=== PATIENT | female | born 1965 | race African-American/Black ===

== ENCOUNTER 2018-02-14 21:11 | Observation (INO) | payer MEDICAID ==
[2018-02-14] MEDS ORDERED: ASPIRIN 81 MG TABLET, CHEWABLE PO ONE (21:19)
[2018-02-14 21:48] LABS: ABSOLUTE BASOPHILS # (AUTO) 0.1 10^3/uL (0.0-0.2); ABSOLUTE EOSINOPHILS # (AUTO) 0.1 10^3/uL (0.0-0.6); ABSOLUTE LYMPHOCYTES (AUTO) 2.1 10^3/uL (0.5-4.7); ABSOLUTE MONOCYTES (AUTO) 0.7 10^3/uL (0.1-1.4); ABSOLUTE NEUT (AUTO) 6.7 10^3/uL (1.7-8.2); BASOPHILS % (AUTO) 0.6 % (0-2); HEMATOCRIT 39.5 % (36.0-47.0); HEMOGLOBIN 13.1 g/dL (12.0-15.5); LYMPHOCYTES % (AUTO) 21.8 % (13-45); MEAN CORPUSCULAR HEMOGLOBIN 28.2 pg (27.0-33.4); MEAN CORPUSCULAR HGB CONC 33.1 g/dL (32.0-36.0); MEAN CORPUSCULAR VOLUME 85 fl (80-97); MONOCYTES % (AUTO) 7.4 % (3-13); PLATELET COUNT 301 10^3/uL (150-450); RED BLOOD COUNT 4.63 10^6/uL (3.72-5.28); RED CELL DISTRIBUTION WIDTH 15.2 % (11.5-14.0); SEGMENTED NEUTROPHILS % (AUTO) 69.2 % (42-78); TOTAL CELLS COUNTED % (AUTO) 100 %; WHITE BLOOD COUNT 9.6 10^3/uL (4.0-10.5)
[2018-02-14] MEDS ORDERED: NITROGLYCERIN 0.4 MG/TAB 25 TAB/BOTTLE SL ONE (21:51)
[2018-02-14] MEDS ORDERED: METOPROLOL TARTRATE PF/INJ 5 MG/5 ML SDV IV ONE ×2 (21:51→22:38)
[2018-02-14] MEDS ORDERED: ACETAMINOPHEN 325 MG TABLET PO ONE (21:51)
[2018-02-14] MEDS ORDERED: ONDANSETRON HCL INJ/PF 4 MG/2 ML SDV IV ONE (21:52)
[2018-02-14] MEDS ORDERED: MORPHINE SULFATE 10 MG/ML INJ IV ONE (21:52)
[2018-02-14 22:08] LABS: ALANINE AMINOTRANSFERASE 16 U/L (9-52); ALBUMIN 4.2 g/dL (3.5-5.0); ALKALINE PHOSPHATASE 101 U/L (38-126); ANION GAP 14 (5-19); ASPARTATE AMINO TRANSFERASE 25 U/L (14-36); BILIRUBIN,DIRECT 0.1 mg/dL (0.0-0.4); BILIRUBIN,TOTAL 0.4 mg/dL (0.2-1.3); BLOOD UREA NITROGEN 17 mg/dL (7-20); CALCIUM 9.5 mg/dL (8.4-10.2); CARBON DIOXIDE 26 mmol/L (22-30); CHLORIDE 103 mmol/L (98-107); CREATINE KINASE 87 U/L (30-135); GLUCOSE 181 mg/dL (75-110); POTASSIUM 4.5 mmol/L (3.6-5.0); TOTAL PROTEIN 7.8 g/dL (6.3-8.2)
--- NOTE | 2018-02-14 22:09 | RADIOLOGY REPORT (SQ) ---
EXAM DESCRIPTION: XR CHEST 1 VIEW COMPLETED DATE/TME: 02/14/2018 21:19 CLINICAL HISTORY: 53 years, Female, cp Findings: The heart is not enlarged. No consolidation or pleural effusion. No pulmonary edema or pneumothorax. IMPRESSION: No acute disease.
[2018-02-14 22:19] LABS: CREATINE KINASE MB 0.52 ng/mL (<4.55)
[2018-02-14 22:20] LABS: TROPONIN I < 0.012 ng/mL
--- NOTE | 2018-02-14 23:09 | ER Document Report ---
ED General - General Chief Complaint: Chest Pain Stated Complaint: CHEST PAIN Time Seen by Provider: 02/14/18 21:49 Mode of Arrival: Ambulatory Information source: Patient Notes: This is a 53-year-old female with a history of hypertension, diabetes, asthma presents to the emergency room with retrosternal chest pain radiating to the left arm while she was at [facility] today. She states she has had several episodes similar in nature. She is recently relocated from [place] and has been seen in the [facility]. Patient denies any exacerbating or relieving factors. TRAVEL OUTSIDE OF THE [place] IN LAST 30 DAYS: No - HPI Onset: Just prior to arrival Onset/Duration: Sudden Quality of pain: Dull Severity: Moderate Pain Level: 3 Associated symptoms: Chest pain. denies: Shortness of breath Exacerbated by: Denies Relieved by: Denies Similar symptoms previously: No Recently seen / treated by doctor: No - Related Data Allergies/Adverse Reactions: No Known Allergies Allergy (Unverified 02/14/18 21:31) Past Medical History - General Information source: Patient - Social History Smoking Status: Current Every Day Smoker Cigarette use (# per day): Yes - Half pack per day Chew tobacco use (# tins/day): No Frequency of alcohol use: None Drug Abuse: None Lives with: Family Family History: None Patient has suicidal ideation: No Patient has homicidal ideation: No - Past Medical History Cardiac Medical History: Reports: Hx Hypercholesterolemia, Hx Hypertension Endocrine Medical History: Reports: Hx Diabetes Mellitus Type 2 Renal/ Medical History: Denies: Hx Peritoneal Dialysis GI Medical History: Reports: Hx Gastroesophageal Reflux Disease Surgical Hx: Negative Review of Systems - Review of Systems Constitutional: denies: Chills, Fever EENT: No symptoms reported Cardiovascular: See HPI Respiratory: No symptoms reported Gastrointestinal: No symptoms reported Genitourinary: No symptoms reported Female Genitourinary: No symptoms reported Musculoskeletal: No symptoms reported Skin: No symptoms reported Hematologic/Lymphatic: No symptoms reported Neurological/Psychological: No symptoms reported Physical Exam - Vital signs Vitals: Pulse Ox 100 02/14/18 21:24 Notes: Physical exam: GENERAL: Patient is alert and oriented x3, no acute distress HEAD: Atraumatic, normocephalic. EYES: Pupils equal round and reactive to light, extraocular movements intact, sclera anicteric, conjunctiva are normal. ENT: TMs normal, nares patent, oropharynx clear without exudates. Moist mucous membranes. NECK: Normal range of motion, supple without obvious mass or JVD. LUNGS: Breath sounds clear to auscultation bilaterally and equal. No wheezes rales or rhonchi. HEART: Regular rate and rhythm without murmurs, rubs or gallops. ABDOMEN: Soft, normoactive bowel sounds. No tenderness to palpation. No guarding, no rebound. No masses appreciated. EXTREMITIES: Normal range of motion, no pitting or edema. No clubbing or cyanosis. NEUROLOGICAL: Cranial nerves II through XII grossly intact. Normal speech, moving all extremities. PSYCH: Normal mood, normal affect. SKIN: Warm, Dry, normal turgor, no rashes or lesions noted. Course - Vital Signs Vital signs: Temp Pulse Resp BP Pulse Ox 98.2 F 85 18 99/65 L 98 02/15/18 04:26 02/15/18 04:26 02/15/18 04:26 02/15/18 04:26 02/15/18 04:26 - Laboratory Result Diagrams: 02/14/18 21:37 02/14/18 21:37 Laboratory results interpreted by me: 02/14/18 02/14/18 02/14/18 21:37 21:37 21:37 RDW 15.2 H Glucose 181 H TSH 0.11 L - Diagnostic Test Radiology reviewed: Image reviewed, Reports reviewed - X-ray shows no infiltrates - EKG Interpretation by Me Rate: Normal Rhythm: NSR - EKG shows sinus tachycardia with left axis deviation, inverted T' s anteriorly. There is no old EKG to compare. Repeat EKG pain-free shows no significant change Discharge - Discharge Clinical Impression: Chest pain Condition: Stable Disposition: ADMITTED OBSERVATION Admitting Provider: Hospitalist - Dr Tejada Unit Admitted: Telemetry
[2018-02-14] MEDS ORDERED: MAG HYDROX/AL HYDROX/SIMETH SUSP 30 ML UDCUP PO ONE (23:19)
[2018-02-14] MEDS ORDERED: METOCLOPRAMIDE HCL ORAL SOLN 10 MG/10 ML UDCUP PO ONE (23:19)
[2018-02-14] MEDS ORDERED: LIDOCAINE 2% VISCOUS SOLN 20 ML UDCUP PO ONE (23:19)
[2018-02-14] MEDS ORDERED: DEXTROSE 40% GEL 15 GM TUBE PO PRN ×2 (23:25)
[2018-02-14] MEDS ORDERED: GLUCAGON,HUMAN RECOMB 1 MG INJ IM PRN (23:25)
[2018-02-14] MEDS ORDERED: DEXTROSE 50%-WATER 25 GM/50 ML DISP.SYRIN IV PRN ×2 (23:25)
[2018-02-14] MEDS ORDERED: NITROGLYCERIN 0.4 MG/TAB 25 TAB/BOTTLE SL PRN (23:25)
[2018-02-14] MEDS ORDERED: DIAZEPAM 5 MG TABLET PO PRN (23:25)
[2018-02-14 23:33] LABS: FREE T3 3.63 pg/mL (2.77-5.27); FREE T4 (FREE THYROXINE) 1.11 ng/dL (0.78-2.19)
[2018-02-14 23:47] LABS: THYROID STIMULATING HORMONE 0.11 uIU/mL (0.47-4.68)
[2018-02-15] MEDS ORDERED: FAMOTIDINE 20 MG TABLET PO ONE (01:40)
--- NOTE | 2018-02-15 03:43 | PDOC H&P ---
History of Present Illness Admission Date/PCP: 02/14/18 23:31 Patient complains of: Chest pain History of Present Illness: TYRON SIMON is a 53 year old female who is a poor historian but admits to gastritis, hiatal hernia, hypertension, dyslipidemia, diabetes and tobacco dependence. She presents with 6 hours of intermittent, pressure-like, left- sided chest pain associated with radiation to the left arm occurring while in [employer]. She admits to palpitations, frequent nausea with burping. She is unable to identify alleviating or exacerbating factors, denying recent cardiac stress test she is referred to the hospitalist for evaluation. She denies recent change in medications and is otherwise been well. Past Medical History Cardiac Medical History: Reports: Hyperlipidema, Hypertension Pulmonary Medical History: Reports: Asthma Endocrine Medical History: Reports: Diabetes Mellitus Type 2 GI Medical History: Reports: Gastroesophageal Reflux Disease, Hiatal Hernia Hematology: Reports: None Past Surgical History Past Surgical History: Reports: None Social History Information Source: Patient Lives with: Family Smoking Status: Former Smoker Frequency of Alcohol Use: None Drugs: None - Advance Directive Resuscitation Status: Full Code Family History Family History: DM, Hypertension. denies: CAD, COPD Parental Family History Reviewed: Yes Children Family History Reviewed: Yes Sibling(s) Family History Reviewed.: Yes Medication/Allergy Allergies/Adverse Reactions: No Known Allergies Allergy (Unverified 02/14/18 21:31) Review of Systems Constitutional: ABSENT: chills, fever(s), headache(s), weight gain, weight loss Eyes: ABSENT: visual disturbances Ears: ABSENT: hearing changes Cardiovascular: PRESENT: as per HPI, palpitations. ABSENT: chest pain, dyspnea on exertion, edema, orthropnea Respiratory: ABSENT: cough, hemoptysis Gastrointestinal: PRESENT: as per HPI, bloating, heartburn, nausea. ABSENT: constipation, diarrhea, vomiting Genitourinary: ABSENT: dysuria, hematuria Musculoskeletal: ABSENT: joint swelling Integumentary: ABSENT: rash, wounds Neurological: ABSENT: abnormal gait, abnormal speech, confusion, dizziness, focal weakness, syncope Psychiatric: ABSENT: anxiety, depression, homidical ideation, suicidal ideation Endocrine: ABSENT: cold intolerance, heat intolerance, polydipsia, polyuria Hematologic/Lymphatic: ABSENT: easy bleeding, easy bruising Physical Exam Vital Signs: Temp Pulse Resp BP Pulse Ox 98.5 F 90 18 111/75 99 02/15/18 02:42 02/15/18 02:42 02/15/18 02:42 02/15/18 02:42 02/15/18 02:42 Intake & Output 02/13/18 02/14/18 02/15/18 11:59 11:59 11:59 Weight 40 kg General appearance: PRESENT: no acute distress, well-developed, well-nourished Head exam: PRESENT: atraumatic, normocephalic Eye exam: PRESENT: conjunctiva pink, EOMI, PERRLA. ABSENT: scleral icterus Ear exam: PRESENT: normal external ear exam Mouth exam: PRESENT: moist, tongue midline Neck exam: ABSENT: carotid bruit, JVD, lymphadenopathy, thyromegaly Respiratory exam: PRESENT: clear to auscultation dewayne. ABSENT: rales, rhonchi, wheezes Cardiovascular exam: PRESENT: RRR. ABSENT: diastolic murmur, rubs, systolic murmur Pulses: PRESENT: normal dorsalis pedis pul Vascular exam: PRESENT: normal capillary refill GI/Abdominal exam: PRESENT: normal bowel sounds, soft. ABSENT: distended, guarding, mass, organolmegaly, rebound, tenderness Rectal exam: PRESENT: deferred Extremities exam: PRESENT: full ROM. ABSENT: calf tenderness, clubbing, pedal edema Neurological exam: PRESENT: alert, awake, oriented to person, oriented to place , oriented to time, oriented to situation, CN II-XII grossly intact. ABSENT: motor sensory deficit Psychiatric exam: PRESENT: appropriate affect, normal mood. ABSENT: homicidal ideation, suicidal ideation Skin exam: PRESENT: dry, intact, warm. ABSENT: cyanosis, rash Results Impressions: Chest X-Ray 02/14/18 21:19 IMPRESSION: No acute disease. Assessment & Plan - Diagnosis (1) Hypertension Is this a current diagnosis for this admission?: Yes Plan: Optimize outpatient regiment, as needed hydralazine (2) Diabetes Is this a current diagnosis for this admission?: Yes Plan: Outpatient regiment with Humalog sliding scale, follow-up A1c (3) Dyslipidemia Is this a current diagnosis for this admission?: Yes Plan: Empiric statin, follow-up lipid profile (4) GERD (gastroesophageal reflux disease) Is this a current diagnosis for this admission?: Yes Plan: Pepcid and trial of Carafate (5) Chest pain Is this a current diagnosis for this admission?: Yes Plan: Atypical chest pain though the patient's pain is atypical there are multiple risk factors for coronary artery disease and subsequently will observe and evaluation of acute coronary syndrome versus coronary artery disease with anginal equivalents. Cardiac monitoring blood pressure Q6 hours ,TSH, lipid profile, serial cardiac enzymes and cardiac stress test - Time Time Spent: 30 to 50 Minutes
[2018-02-15 05:04] LABS: CHOLESTEROL 181.23 mg/dL (0-200); CREATINE KINASE 66 U/L (30-135); TRIGLYCERIDES 103 mg/dL (<150)
[2018-02-15 05:15] LABS: CREATINE KINASE MB 0.84 ng/mL (<4.55); DIRECT LDL 139 mg/dL (<100)
[2018-02-15 05:16] LABS: TROPONIN I < 0.012 ng/mL
[2018-02-15] MEDS: ATORVASTATIN CALCIUM 80 MG TABLET PO ONE ×2 (05:51→05:55)
--- NOTE | 2018-02-15 07:55 | EKG REPORT ---
SEVERITY:- ABNORMAL ECG - SINUS RHYTHM PROBABLE LEFT ATRIAL ABNORMALITY LEFT VENTRICULAR HYPERTROPHY ANTERIOR Q WAVES, POSSIBLY DUE TO LVH ABNORMAL T, CONSIDER ISCHEMIA, ANT-LAT LEADS BORDERLINE PROLONGED QT INTERVAL : Confirmed by: Doug Vargas MD 15-Feb-2018 07:54:53
--- NOTE | 2018-02-15 07:56 | EKG REPORT ---
SEVERITY:- ABNORMAL ECG - SINUS TACHYCARDIA ANTERIOR Q WAVES, POSSIBLY DUE TO LVH LVH W/ REPOL ABNORMALITIES, POSSIBLE ANTERIOR MD, AGE UNDETERMINED, CLINICAL CORRELATION NEEDED. BORDERLINE PROLONGED QT INTERVAL : Confirmed by: Doug Vargas MD 15-Feb-2018 07:56:09
[2018-02-15] MEDS: FAMOTIDINE 20 MG TABLET PO SCH ×2 (09:11→22:44)
[2018-02-15] MEDS: SUCRALFATE SUSP 1 GM/10 ML UDCUP PO SCH ×2 (09:11→18:01)
[2018-02-15] MEDS: DOCUSATE SODIUM 100 MG CAPSULE PO SCH ×2 (09:11→18:01)
[2018-02-15 11:19] LABS: CREATINE KINASE MB 0.89 ng/mL (<4.55)
[2018-02-15 11:23] LABS: TROPONIN I < 0.012 ng/mL
[2018-02-15] MEDS: INSULIN LISPRO 100 UNIT/ML 3 ML VIAL SUBCUT PRN ×3 (12:54→22:44)
--- NOTE | 2018-02-15 13:39 | DRAGON STRESS TEST REPORT ---
INTRAVENOUS LEXISCAN CARDIOLITE STRESS TEST USING SINGLE PHOTON EMMISION COMPUTERIZED TOMOGRAPHIC. DATE OF PROCEDURE: February 15, 2018, INDICATION : Chest pain CARDIAC RISK FACTORS: Diabetes, dyslipidemia RESTING EKG: Sinus rhythm, deep symmetrical T wave inversion anterior precordial lead along with QS complex V1 to V3 indicative of prior anterior [place]. STRESS EKG: No significant ST segment changes noted with LexiScan bolus REASON FOR TERMINATION: Protocol. PROCEDURE REPORT: Baseline heart rate 100 beats per minute with blood pressure of 141/78. Patient had no significant complaints. Patient was bolused with Lexiscan 0.4 mg intravenously followed by saline bolus. Heart rate at 2 minutes post bolus 125 with a blood pressure of 139/83. 3 minutes post bolus heart rate 106 with blood pressure of 137/79. No significant EKG changes were noted. Patient had no significant complaints during the procedure or postprocedure. CONCLUSIONS: Normal EKG and hemodynamic response to IV LexiScan. NUCLEAR DATA: At rest the patient was given 10.54 millicuries of technetium 99 sestamibi injected intravenously. As per protocol rest gated SPECT images were obtained. On day of stress test, the patient was given intravenous LexiScan at a dose of 0.4 mg in 5 mL intravenously, followed by flush with normal saline. Subsequently the stress dose of 30.9 millicuries of technetium 99 sestamibi was injected intravenously. As per protocol stress gated images were obtained. NUCLEAR INTERPRETATION: Both raw and processed data were used for interpretation. Visual, qualitative, computer-generated quantitative data was used. There was good myocardial uptake of technetium compound. Motion artifact and soft tissue attenuations were noted. Increased visceral uptake was noted. Marked decreased uptake noted in the anterior wall mostly consistent with a moderate to severe fixed defect with probable minimal surrounding transient perfusion defect indicative of minimal transient ischemia. However confidence in interpretation of this test is limited because of marked breast tissue and other soft tissue attenuation. EKG gated imaging showed LV EF at 30 %, rest and stress gated EF similar visually with mid anterior wall akinesia. T. I D. ratio was 1.13. Lung heart ratio noted to be within normal limits 0.27. No significant extracardiac and abnormal radiotracer activities were noted. RV free wall uptake was noted to be borderline increased. IMPRESSION: Also refer to comments under nuclear interpretation. Also test results needs to be interpreted in the context of pretest probability. Overall technical quality of the study was suboptimal. 1. Marked decreased uptake noted in the anterior wall mostly consistent with a moderate to severe fixed defect (scar) with probable minimal surrounding transient perfusion defect indicative of minimal transient ischemia. However confidence in interpretation of this test is limited because of marked breast tissue and other soft tissue attenuation. 2. RV free wall uptake was noted to be somewhat increased indicative of possible RVH.. 3. EKG gated imaging shows left ventricular ejection fraction of approx. 30 %. Mid anterior wall akinesia noted. 4. Clinical correlation requested as worse disease and or balanced ischemia could be missed. In approximately 10% of the cases Lexiscan may not cause adequate vasodilatory stress. RECOMMENDATIONS: Aggressive risk factor modification and medical management. Further evaluation may be needed if continued symptoms or other high risk indicators are noted on clinical evaluation. May consider a PET stress, stress echo, cardiac MRI stress , cardiac CTA etc. if clinically indicated. Close cardiology follow-up is also recommended. Clinical correlation with echocardiogram derived ejection fraction. Inability to exercise by itself can lead to increased cardiovascular event risks. Consider cardiology consultation and or follow-up if clinically indicated. I am available for cardiology evaluation and consultation if requested by the robotics systems engineer, unless patient already has a park guard. Dr. Elvis Huggins. MRCP Board certified in cardiology and sleep medicine. Board certified in nuclear cardiology, adult echocardiography. GAGANDEEP
[2018-02-15] MEDS ORDERED: REGADENOSON INJ 0.4 MG/5 ML DISP.SYRIN IV ONE (14:51)
[2018-02-15] MEDS ORDERED: AMINOPHYLLINE INJ/PF 250 MG/10 ML SDV IV ONE (14:51)
[2018-02-15 16:11] LABS: CREATINE KINASE MB 0.73 ng/mL (<4.55)
[2018-02-15 16:12] LABS: TROPONIN I < 0.012 ng/mL
[2018-02-15] MEDS ORDERED: FUROSEMIDE 20 MG TABLET PO ONE (16:30)
--- NOTE | 2018-02-15 16:37 | PDOC PROGRESS REPORT ---
Subjective Progress Note for:: 02/15/18 Subjective:: The patient is a 52-year-old female with a past medical history of hyperlipidemia, hypertension, insulin-dependent diabetes mellitus, asthma, GERD , obesity who was admitted 02/15/18 with atypical chest pain. She was seen on afternoon rounds with her daughter present. She was found resting in bed comfortably on room air. She denies any additional episodes of chest pain. She does endorse a long history of dependent edema (unclear whether or not this improves with elevation of her legs), shortness of breath which she has related to her asthma, and fatigue. There is a removed family history of cardiomyopathy, however, the patient is unsure if this is a direct relative or related by marriage. She denies orthopnea and reports that she is able to sleep lying supine. We reviewed her laboratory work and her stress test with suggestion of reduced ejection fraction. The patient is offered discharged home with close outpatient cardiology follow-up versus remaining in-house overnight for an echocardiogram and cardiology consultation. The patient and daughter request that we continue her cardiac workup while she is here in the hospital. All questions and concerns were answered to their satisfaction. No concerns per nursing. Reason For Visit: CHEST PAIN Physical Exam Vital Signs: Temp Pulse Resp BP Pulse Ox 98.5 F 89 20 105/52 L 99 02/15/18 16:19 02/15/18 16:19 02/15/18 16:19 02/15/18 16:19 02/15/18 16:19 Intake & Output 02/14/18 02/15/18 02/16/18 06:59 06:59 06:59 Weight 40 kg General appearance: PRESENT: no acute distress, cooperative, well-developed, well-nourished - Overweight Head exam: PRESENT: atraumatic, normocephalic Eye exam: PRESENT: conjunctiva pink, EOMI, PERRLA. ABSENT: scleral icterus Ear exam: PRESENT: normal external ear exam Mouth exam: PRESENT: moist, tongue midline Teeth exam: PRESENT: poor dentation Neck exam: ABSENT: carotid bruit, JVD, lymphadenopathy, thyromegaly Respiratory exam: PRESENT: clear to auscultation dewayne, symmetrical, unlabored. ABSENT: rales, rhonchi, wheezes Cardiovascular exam: PRESENT: RRR, +S1, +S2. ABSENT: diastolic murmur, rubs, systolic murmur Pulses: PRESENT: normal dorsalis pedis pul Vascular exam: PRESENT: normal capillary refill GI/Abdominal exam: PRESENT: normal bowel sounds, soft. ABSENT: distended, guarding, mass, organolmegaly, rebound, tenderness Rectal exam: PRESENT: deferred Extremities exam: PRESENT: full ROM. ABSENT: calf tenderness, clubbing, pedal edema Neurological exam: PRESENT: alert, awake, oriented to person, oriented to place , oriented to time, oriented to situation, CN II-XII grossly intact. ABSENT: motor sensory deficit Psychiatric exam: PRESENT: appropriate affect, normal mood. ABSENT: homicidal ideation, suicidal ideation Skin exam: PRESENT: dry, intact, warm. ABSENT: cyanosis, rash Results Laboratory Results: 02/15/18 03:34 Triglycerides 103 Cholesterol 181.23 LDL Cholesterol Direct 139 H VLDL Cholesterol 21.0 HDL Cholesterol 35 L 02/15/18 02/15/18 02/15/18 03:34 03:34 09:45 Creatine Kinase 66 CK-MB (CK-2) 0.84 0.89 Troponin I < 0.012 < 0.012 NT-Pro-B Natriuret Pep 02/15/18 02/15/18 15:26 15:26 Creatine Kinase CK-MB (CK-2) 0.73 Troponin I < 0.012 NT-Pro-B Natriuret Pep 1160 H Impressions: Chest X-Ray 02/14/18 21:19 IMPRESSION: No acute disease. Assessment & Plan - Diagnosis (1) Chest pain Qualifiers: Chest pain type: unspecified Qualified Code(s): R07.9 - Chest pain, unspecified Is this a current diagnosis for this admission?: Yes Plan: The patient was admitted with atypical chest pain described as burning and related to reflux that has been intermittent over the last several weeks. EKG demonstrated a sinus rhythm with LVH abnormal T waves in the lateral leads and borderline prolonged QT interval. Repeat EKG was unchanged. Patient denies previous history of CAD or [place]. Serial troponins have been negative x4. TSH was low at 0.11, however free T4 and free T3 were both normal. Lipid panel demonstrated mildly elevated LDL (139) and a low HDL (35), normal triglycerides and total cholesterol. ProBNP is mildly elevated 1160; no known history of CHF. Nuclear stress test was negative for acute changes, however did note a fixed defect to the anterior wall with probable minimal surrounding transient perfusion defect. She was also noted to have an LVEF of approximately 30%. The patient remains admitted to the medical floor on continuous cardiac telemetry. We will obtain an echocardiogram to further assess for previously undiagnosed CHF. Will place cardiology consultation. Continue daily aspirin and atorvastatin. The patient's home dose lisinopril is continued. Have started p.o. furosemide, daily weights, cardiac diet. 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 She is placed on a consistent carb diet. Accu-Cheks before meals and at bedtime with Humalog for sliding scale coverage. (3) Dyslipidemia Is this a current diagnosis for this admission?: Yes Plan: Continue home dose atorvastatin. (4) Hypertension Is this a current diagnosis for this admission?: Yes Plan: Blood pressures have been acceptable today. Have resumed her home dose lisinopril. Have started low-dose furosemide. (5) GERD (gastroesophageal reflux disease) Is this a current diagnosis for this admission?: Yes Plan: Pepcid and Carafate twice daily. - Time Time Spent with patient: 25-34 minutes Medications reviewed and adjusted accordingly: Yes Anticipated discharge: Home Within: within 24 hours
--- NOTE | 2018-02-15 20:04 | XCELERA REPORT ---
[address] [address] Transthoracic Echocardiogram Report Name: TYRON SIMON Age: 53 yrs Gender: Female : 1965 Patient Status: [facility] Date: 02/15/2018 06:56 PM Height: 66 in Weight: 230 lb BSA: 2.1 m2 Procedure: A complete two-dimensional transthoracic echocardiogram was performed (2D, M-mode, spectral and color flow Doppler). The study was technically difficult with many images being suboptimal in quality. Reason For Study: Chest pain, Low EF by stress test Ordering Physician: JENNIFER GAMBLE Performed By: KATIE Interpretation Summary Left ventricular systolic function is borderline reduced. Doppler measurements suggest pseudonormalized left ventricular relaxation, which is associated with grade II/IV or mild to moderate diastolic dysfunction There is mild to moderate concentric left ventricular hypertrophy. The left ventricle is grossly normal size. Regional wall motion abnormalities cannot be excluded due to limited visualization. Borderline right ventricular enlargement. The right ventricular systolic function is normal. The left atrium is mildly dilated. The right atrium is normal in size There is a mild amount of mitral regurgitation There is no mitral valve stenosis. No aortic regurgitation is present. There is no aortic valve stenosis There is a trace or physiologic amount of tricuspid regurgitation There is no tricuspid stenosis. The aortic root is not well visualized but is probably normal size. The inferior vena cava appeared small and collapsed with respiration (RAP 0-5 mmHg) There is no pericardial effusion. MMode/2D Measurements & Calculations RVDd: 2.0 cm LVIDd: 5.3 cm FS: 29.6 % Ao root diam: 2.8 cm IVSd: 1.0 cm LVIDs: 3.7 cm EDV(Teich): 134.2 ml Ao root area: 6.0 cm2 LVPWd: 1.1 cm ESV(Teich): 58.9 ml EF(Teich): 56.1 % Doppler Measurements & Calculations MV E max lupe: MV P1/2t max lupe: Ao V2 max: LV V1 max P.8 cm/sec 112.9 cm/sec 132.0 cm/sec 4.5 mmHg MV A max lupe: MV P1/2t: 45.7 msec Ao max P.0 mmHgLV V1 max: 106.6 cm/sec MVA(P1/2t): 4.8 cm2 106.1 cm/sec MV E/A: 0.86 MV dec slope: 723.3 cm/sec2 MV dec time: 0.15 sec PA V2 max: TR max lupe: MV P1/2t-pr_phl: 111.3 cm/sec 259.3 cm/sec 45.7 msec PA max P.0 mmHgTR max P.9 mmHg Left Ventricle The left ventricle is grossly normal size. There is mild to moderate concentric left ventricular hypertrophy. Left ventricular systolic function is borderline reduced. Doppler measurements suggest pseudonormalized left ventricular relaxation, which is associated with grade II/IV or mild to moderate diastolic dysfunction. Regional wall motion abnormalities cannot be excluded due to limited visualization. Right Ventricle Borderline right ventricular enlargement. The right ventricular systolic function is normal. Atria The right atrium is normal in size. The left atrium is mildly dilated. Interarterial septum not well visualized and not well dopplered. Cannot comment on ASD/PFO presence. Mitral Valve The mitral valve is grossly normal. There is no mitral valve stenosis. There is a mild amount of mitral regurgitation. Aortic Valve The aortic valve is not well visualized secondary to technical limitations. There is no aortic valve stenosis. No aortic regurgitation is present. Tricuspid Valve The tricuspid valve is not well visualized, but is grossly normal. There is no tricuspid stenosis. There is a trace or physiologic amount of tricuspid regurgitation. Pulmonic Valve The pulmonic valve is not well visualized. Great Vessels The aortic root is not well visualized but is probably normal size. The inferior vena cava appeared small and collapsed with respiration (RAP 0-5 mmHg). Effusions There is no pericardial effusion. : JENNIFER GAMBLE > Yaneth Huggins
--- NOTE | 2018-02-15 20:35 | Progress Note ---
Provider Note Provider Note: Patient cardiac enzymes has been negative. Echo EF just borderline reduced with mild to moderate LVH. No significant valvular abnormalities noted. Nuclear stress test was severely suboptimal. Patient may benefit from a stress echo as an outpatient along with close cardiology follow-up.
[2018-02-15] MEDS ORDERED: ATORVASTATIN CALCIUM 80 MG TABLET PO SCH (22:00)
[2018-02-15] MEDS ORDERED: MONTELUKAST SODIUM 10 MG TABLET PO SCH (22:00)
[2018-02-15] MEDS: CARVEDILOL 3.125 MG TABLET PO SCH (22:43)
[2018-02-16 06:00] LABS: ANION GAP 13 (5-19); BLOOD UREA NITROGEN 15 mg/dL (7-20); CALCIUM 8.9 mg/dL (8.4-10.2); CARBON DIOXIDE 25 mmol/L (22-30); CHLORIDE 103 mmol/L (98-107); GLUCOSE 148 mg/dL (75-110); POTASSIUM 4.1 mmol/L (3.6-5.0); SODIUM 140.6 mmol/L (137-145)
[2018-02-16] MEDS ORDERED: LANSOPRAZOLE 30 MG TAB.RAP.DR PO SCH (06:00)
[2018-02-16] MEDS: SUCRALFATE SUSP 1 GM/10 ML UDCUP PO SCH (09:16)
[2018-02-16] MEDS: DOCUSATE SODIUM 100 MG CAPSULE PO SCH (09:16)
[2018-02-16] MEDS: CARVEDILOL 3.125 MG TABLET PO SCH (09:17)
[2018-02-16] MEDS: FAMOTIDINE 20 MG TABLET PO SCH (09:17)
[2018-02-16] MEDS ORDERED: LISINOPRIL 10 MG TABLET PO SCH (10:00)
[2018-02-16] MEDS ORDERED: FUROSEMIDE 20 MG TABLET PO SCH (10:00)
[2018-02-16] MEDS ORDERED: ASPIRIN 81 MG TABLET, CHEWABLE PO SCH (10:00)
[2018-02-16] MEDS ORDERED: MULTIVITAMIN TABLET PO SCH (10:00)
[2018-02-16] MEDS ORDERED: (PENDING PHARMACY ID) (Mv-Min/Iron/Folic/Calcium/Vitk [One-A-Day Women's Tablet] 1 EACH) PO SCH (10:00)
[2018-02-16] MEDS ORDERED: CETIRIZINE 10 MG TABLET PO SCH (10:00)
[2018-02-16] MEDS ORDERED: (PENDING PHARMACY ID) (Lisinopril [Prinivil] 20 MG) PO SCH (10:00)
--- NOTE | 2018-02-16 10:59 | Physician Advisory Note ---
Physician Advisor ProgressNote .: Pursuant to the plan for [facility], I have reviewed the medical record for this patient. Physician Advisor Statement: Please document, if you agree: 1. "CP, suspect most likely due to " 2. Medical necessity: attg offered pt the choice to go home yesterday w/outpt f/u, so that was apparently a safe option at that point. Therefore, the payer will not consider the 2nd MN medically necessary to be in hospital - will consider 2nd MN "pt/family convenience", not medically necessary. Not appropriate for change to Inpt. Thanks, CK
--- NOTE | 2018-02-16 11:23 | RADIOLOGY REPORT (SQ) ---
EXAM DESCRIPTION: CTA CHEST COMPLETED DATE/TIME: 02/16/2018 10:59 am REASON FOR STUDY: Chest pain COMPARISON: AP chest 02/14/2018 TECHNIQUE: CT scan of the chest performed using helical scanning technique with dynamic intravenous contrast injection. Images reviewed with lung, soft tissue and bone windows. Reconstructed coronal and sagittal MPR images reviewed. Additional 3 dimensional post-processing performed to develop Maximal Intensity Projection images (IN P). All images stored on PACS. All CT scanners at this facility use dose modulation, iterative reconstruction, and/or weight based d osing when appropriate to reduce radiation dose to as low as reasonably achievable (ALARA). [facility]: Dose Right [facility]: CareDose [facility]: Dose Right [facility]: Teradose 4D [facility]: Plink Search CONTRAST TYPE AND DOSE: contrast/concentration: Isovue 350.00 mg/ml; Total Contrast Delivered: 82.0 ml; Total Saline Delivered: 80.0 ml Contrast bolus adequate for pulmonary arteries and aorta. RENAL FUNCTION: GFR > 60. RADIATION DOSE: CT Rad equipment meets quality standard of care and radiation dose reduction techniq ues were employed. CTDIvol: 32.5 - 46.3 mGy. DLP: 1212 mGy-cm. . LIMITATIONS: None. FINDINGS: LUNGS AND PLEURA: No masses, infiltrates, or pneumothorax. No pleural effusions or pleura l calcifications. AORTA AND GREAT VESSELS: No aneurysm. No thoracic aortic dissection HEART: No pericardial effusion. No significant coronary artery calcifications. PULMONARY ARTERIES: No emboli visualized in the main pulmonary arteries or the segmental branches. HILAR AND MEDIASTINAL STRUCTURES: No identified masses or abnormal nodes. HARDWARE: None in the chest. UPPER ABDOMEN: No significant findings. Limited exam. THYROID AND OTHER SOFT TISSUES: No masses. No adenopathy. BONES: No acute or significant finding. 3D MIPS: Confirm above findings. OTHER: No other significant finding. IMPRESSION: NORMAL CTA OF THE CHEST. NO PULMONARY EMBOLI. COMMENT: Quality ID # [id number]: Final reports with documentation of one or more dose reduction techniques (e.g., Automated exposure control, adjustment of the mA and/or kV according to patient size, use of iterative reconstruction technique) TECHNICAL DOCUMENTATION: JOB ID: [id number]- All Rights Reserved Reading location - IP/workstation name: [facility]
[2018-02-16] MEDS: INSULIN LISPRO 100 UNIT/ML 3 ML VIAL SUBCUT PRN (11:46)
--- NOTE | 2018-02-16 12:58 | PDOC DISCHARGE SUMMARY ---
General - Admit/Disc Date/PCP Admission Date/Primary Care Provider: 02/14/18 23:31 Discharge Date: 02/16/18 - Discharge Diagnosis (1) Chest pain Is this a current diagnosis for this admission?: Yes Summary: The patient was admitted with atypical chest pain described as burning and related to reflux that has been intermittent over the last several weeks. She did not have any additional episodes of chest discomfort during her admission. EKG demonstrated a sinus rhythm with LVH abnormal T waves in the lateral leads and borderline prolonged QT interval. Repeat EKG was unchanged. Serial troponins were negative x4. TSH was low at 0.11, however free T4 and free T3 were both normal. Lipid panel demonstrated mildly elevated LDL (139) and a low HDL (35), normal triglycerides and total cholesterol. ProBNP is mildly elevated 1160, decreased slightly to 960 today. Nuclear stress test was negative for acute changes, however, did note a fixed defect to the anterior wall with probable minimal surrounding transient perfusion defect. She was also noted to have an LVEF of approximately 30%. Echocardiogram revealed a borderline reduced LVEF%, moderate LVH, and mild to moderate diastolic dysfunction. A CTA of the Chest was negative for pulmonary embolism. There was an incidental 6 mm right posterior lower lobe pulmonary nodule with recommendations for follow up imaging in 6-12 months. The CTA images were personally reviewed with Dr. Huggins; no evidence of coronary artery calcifications. The patient was admitted to the medical floor on continuous cardiac telemetry. Cardiology was consulted and recommended the patient be placed on coreg; she has been provided a prescription at discharge. She is recommended to continue daily aspirin, atorvastatin and home dose lisinopril/hctz. At time of discharge, the patient was asymptomatic, maintaining oxygen saturations on room air, in NSR, and stable for discharge to home. She is recommended to begin a weight loss regiment with focus on dietary changes including low sodium intake. She was educated on the importance of daily weights and to notify her physician of any weight gain of >2 lbs. She is instructed to follow up with her primary care provider within 1 week and to return to the emergency department as needed for concerning symptoms. (2) Diabetes Is this a current diagnosis for this admission?: Yes Summary: HgA1c 8.0% Patient is encouraged to increase her dietary and medication compliance. She is advised on the importance of increasing physical activity (encouraged to begin a walking regiment). (3) Dyslipidemia Is this a current diagnosis for this admission?: Yes Summary: Continue home dose atorvastatin. Dietary compliance is reinforced. (4) Hypertension Is this a current diagnosis for this admission?: Yes Summary: Continue home dose llisinopril/hctz. (5) GERD (gastroesophageal reflux disease) Is this a current diagnosis for this admission?: Yes - Additional Information Resuscitation Status: Full Code Discharge Diet: Cardiac Discharge Activity: Activity As Tolerated, Slowly Increase Activity, Weigh Daily Prescriptions: Aspirin [Aspirin 81 mg Chewable Tablet] 81 mg PO DAILY #90 tab.chew Carvedilol [Coreg 3.125 mg Tablet] 3.125 mg PO Q12 #60 tablet Home Medications: Atorvastatin Calcium [Lipitor 80 mg Tablet] 80 mg PO QHS MDD FILLED 11/04 FOR 30 DAY SUPPLY 02/15/18 Cetirizine HCl [Zyrtec 10 mg Tablet] 10 mg PO DAILY 02/15/18 Hydrochlorothiazide [Hydrodiuril 12.5 mg Tablet] 12.5 mg PO DAILY MDD FILLED FOR 30 DAY SUPPLY 02/15/18 Insulin Glargine,Hum.rec.anlog [Basaglar Kwikpen U-100] 75 unit SQ QHS 02/15/18 Insulin Lispro [Admelog Solostar] 15 unit SQ TID 02/15/18 Lisinopril [Prinivil] 20 mg PO DAILY MDD FILLED 11/04 FOR 30 DAY SUPPLY 02/15/18 Metformin HCl [Metformin HCl ER] 1,000 mg PO QAM 02/15/18 Montelukast Sodium [Singulair 10 mg Tablet] 10 mg PO QHS 02/15/18 Mv-Min/Iron/Folic/Calcium/Vitk [One-A-Day Women's Tablet] 1 each PO DAILY Omeprazole 40 mg PO DAILY 02/15/18 Aspirin [Aspirin 81 mg Chewable Tablet] 81 mg PO DAILY #90 tab.chew 02/16/18 Carvedilol [Coreg 3.125 mg Tablet] 3.125 mg PO Q12 #60 tablet 02/16/18 History of Present Illness History of Present Illness: Per H&P by Dr. Tejada: TYRON SIMON is a 53 year old female who is a poor historian but admits to gastritis, hiatal hernia, hypertension, dyslipidemia, diabetes and tobacco dependence. She presents with 6 hours of intermittent, pressure-like, left-sided chest pain associated with radiation to the left arm occurring while in confucianism. She admits to palpitations, frequent nausea with burping. She is unable to identify alleviating or exacerbating factors, denying recent cardiac stress test she is referred to the hospitalist for evaluation. She denies recent change in medications and is otherwise been well. Physical Exam Vital Signs: Temp Pulse Resp BP Pulse Ox 97.4 F 95 17 127/71 H 95 02/16/18 00:23 02/16/18 07:00 02/16/18 00:23 02/16/18 00:23 02/16/18 00:23 Intake & Output 02/15/18 02/16/18 02/17/18 06:59 06:59 06:59 Intake Total 1241 355 Balance 1241 355 Weight 40 kg 40.1 kg General appearance: PRESENT: no acute distress, cooperative, obese, well- developed, well-nourished Head exam: PRESENT: atraumatic, normocephalic Eye exam: PRESENT: conjunctiva pink, EOMI, PERRLA. ABSENT: scleral icterus Ear exam: PRESENT: normal external ear exam Mouth exam: PRESENT: moist, tongue midline Neck exam: ABSENT: carotid bruit, JVD, lymphadenopathy, thyromegaly Respiratory exam: PRESENT: clear to auscultation dewayne, symmetrical, unlabored. ABSENT: rales, rhonchi, wheezes Cardiovascular exam: PRESENT: RRR, +S1, +S2. ABSENT: diastolic murmur, rubs, systolic murmur Pulses: PRESENT: normal dorsalis pedis pul Vascular exam: PRESENT: normal capillary refill GI/Abdominal exam: PRESENT: normal bowel sounds, soft. ABSENT: distended, guarding, mass, organolmegaly, rebound, tenderness Rectal exam: PRESENT: deferred Extremities exam: PRESENT: full ROM. ABSENT: calf tenderness, clubbing, pedal edema Neurological exam: PRESENT: alert, awake, oriented to person, oriented to place , oriented to time, oriented to situation, CN II-XII grossly intact. ABSENT: motor sensory deficit Psychiatric exam: PRESENT: appropriate affect, normal mood. ABSENT: homicidal ideation, suicidal ideation Skin exam: PRESENT: dry, intact, warm. ABSENT: cyanosis, rash Results Laboratory Results: 02/16/18 04:33 02/16/18 04:33 Sodium 140.6 Potassium 4.1 Chloride 103 Carbon Dioxide 25 Anion Gap 13 BUN 15 Creatinine 0.83 Est GFR ( Amer) > 60 Est GFR (Non-Af Amer) > 60 Glucose 148 H Calcium 8.9 02/15/18 02/15/18 02/15/18 03:34 03:34 09:45 Creatine Kinase 66 CK-MB (CK-2) 0.84 0.89 Troponin I < 0.012 < 0.012 NT-Pro-B Natriuret Pep 02/15/18 02/15/18 02/16/18 15:26 15:26 04:33 Creatine Kinase CK-MB (CK-2) 0.73 Troponin I < 0.012 NT-Pro-B Natriuret Pep 1160 H 827 Impressions: Chest X-Ray 02/14/18 21:19 IMPRESSION: No acute disease. Chest/Abdomen CTA 02/16/18 00:00 IMPRESSION: NORMAL CTA OF THE CHEST. NO PULMONARY EMBOLI. Qualifiers - * PATIENT BEING DISCHARGED WITH ANY OF THE FOLLOWING DIAGNOSIS: No Plan Discharge Plan: Discharge to home. Follow up with Primary Care Provider within 1 week. Follow up with Cardiology as needed. Return to the Emergency Department as needed for concerning symptoms. Time Spent: Less than 30 Minutes
[2018-02-16 13:28] VITALS: BP 99/65
--- NOTE | 2018-02-16 18:44 | PDOC PROGRESS REPORT ---
Subjective Progress Note for:: 02/16/18 Subjective:: Patient seems to be doing better with gradual improvement. Pt is denying any chest arm or neck discomfort. Patient denying any PND, orthopnea. Patient denied any sustained palpitations, dizziness, syncope, near syncope. Patient denying any fever chills. Patient denying any other significant discomfort. Patient is maintaining sinus rhythm. Review of systems: Rest review of systems negative. Medications: Medications have been reviewed. Reason For Visit: CHEST PAIN Physical Exam Vital Signs: Temp Pulse Resp BP Pulse Ox 98.5 F 95 20 99/65 L 99 02/16/18 13:23 02/16/18 13:23 02/16/18 13:23 02/16/18 13:23 02/16/18 13:23 Intake & Output 02/15/18 02/16/18 02/17/18 06:59 06:59 06:59 Intake Total 1241 355 Balance 1241 355 Weight 40 kg 40.1 kg Exam: GENERAL: well-nourished and in no acute distress. Alert and oriented x3 HEAD: Atraumatic, normocephalic. EYES: VICENTE, sclera anicteric, conjunctiva are normal. ENT: Moist mucous membranes. No oral ulcerations or bleeding gums noted. No obvious ear, nose or throat abnormalities noted. NECK: supple without lymphadenopathy. Trachea is central. No cervical or axillary lymphadenopathy noted. Carotids are 2+, JVD WNL LUNGS: Breath sounds clear bilaterally. No wheezes rales or rhonchi noted. No significant dullness noted on percussion. CHEST: Palpation of the chest wall shows no significant chest wall tenderness. HEART: Wilbur MANAGER OF CLINICAL, No PSH, 1/6 WYATT aortic area, 1/6 garcia systolic murmur mitral area, no rubs, no gallops. ABDOMEN: Soft, no significant tenderness appreciated, normoactive bowel sounds. No guarding, no rebound. No rigidity noted . No masses appreciated. EXTREMITIES: Pedal pulses are 1-2+, no calf tenderness noted. No clubbing or cyanosis. negative pedal edema noted NEUROLOGICAL: Focused neurological exam showed no significant neurologic deficit. Normal speech, no focal weakness appreciated. PSYCH: Normal mood, normal affect. Judgment and insight within normal limits. SKIN: No significant ecchymosis, skin is noted to be warm. MUSCULOSKELETAL EXAM: No significant acute joint swelling noted. Results Laboratory Results: 02/16/18 04:33 02/16/18 04:33 Sodium 140.6 Potassium 4.1 Chloride 103 Carbon Dioxide 25 Anion Gap 13 BUN 15 Creatinine 0.83 Est GFR ( Amer) > 60 Est GFR (Non-Af Amer) > 60 Glucose 148 H Calcium 8.9 02/15/18 02/15/18 02/15/18 03:34 03:34 09:45 Creatine Kinase 66 CK-MB (CK-2) 0.84 0.89 Troponin I < 0.012 < 0.012 NT-Pro-B Natriuret Pep 02/15/18 02/15/18 02/16/18 15:26 15:26 04:33 Creatine Kinase CK-MB (CK-2) 0.73 Troponin I < 0.012 NT-Pro-B Natriuret Pep 1160 H 827 EKG Comments: Sinus rhythm, no acute ST-T wave changes noted Impressions: Chest X-Ray 02/14/18 21:19 IMPRESSION: No acute disease. Chest/Abdomen CTA 02/16/18 00:00 IMPRESSION: NORMAL CTA OF THE CHEST. NO PULMONARY EMBOLI. Assessment & Plan - Diagnosis (1) Chest pain Qualifiers: Chest pain type: unspecified Qualified Code(s): R07.9 - Chest pain, unspecified Is this a current diagnosis for this admission?: Yes (2) Diabetes Qualifiers: Diabetes mellitus type: type 2 Diabetes mellitus longterm insulin use: with longterm use Is this a current diagnosis for this admission?: Yes (3) Dyslipidemia Is this a current diagnosis for this admission?: Yes (4) GERD (gastroesophageal reflux disease) Is this a current diagnosis for this admission?: Yes (5) Hypertension Qualifiers: Hypertension type: essential hypertension Qualified Code(s): I10 - Essential (primary) hypertension Is this a current diagnosis for this admission?: Yes - Notes Notes: Chest pain: This was evaluated with a nuclear stress test which was technically suboptimal with significant attenuation artifact and possibly problems with gating. It did show depressed LVEF but 2D echo showed normal low normal LVEF. In addition mild to moderate LVH was noted. No significant valvular abnormalities noted. Discussed low confidence in his stress test results with the patient and recommended further evaluation be completed as an outpatient which could include stress echo if patient can walk on a treadmill or could include a cardiac CT angiogram. In the meantime patient to be treated with very aggressive risk factor modification and medical management. In this regard patient should continue with statins, antiplatelet therapy, beta-krish therapy, ELBA inhibitor/angiotensin receptor krish therapy. For further risk stratification, we did order a chest CT which was negative for coronary calcification. Diabetes: Patient will benefit from good control of blood pressure but should avoid any hyper or hypoglycemia. Dyslipidemia: Patient will benefit from high potency statin therapy with LDL goal of less than 70 in this young lady with diabetes. Hypertension: Blood pressure goal should be 135/85 or less. Preferred medication will be ELBA inhibitor/ARB. Obesity: Patient will benefit from weight loss. Sleep disorder: Patient describes previous diagnosis of sleep apnea. Patient will benefit from his CPAP therapy. This can be arranged through my office if needed. - Time Time with patient: Greater than 35 minutes - CODE STATUS was discussed, patient remains full code. Surrogate decision-maker patient's daughter. Multiple medical problems were addressed. More than 50% of the time spent coordinating care, discussing management plans with involved caregivers. Management plans discussed with involved personnels. Medical decision making was of moderate to high complexity, patient's has multiple comorbidities. Medications reviewed and adjusted accordingly: Yes
--- NOTE | 2018-02-16 18:52 | PDOC CONSULTATION ---
Consultation Consult Date: 02/15/18 Attending physician:: SELVIN VINCENT Consult reason:: Nuclear echo EF History of Present Illness Admission Date/PCP: 02/14/18 23:31 Patient complains of: Chest pain History of Present Illness: TYRON SIMON is a 53 year old female who is a poor historian but admits to gastritis, hiatal hernia, hypertension, dyslipidemia, diabetes and tobacco dependence. She presents with 6 hours of intermittent, pressure-like, left- sided chest pain associated with radiation to the left arm occurring while in synagogue. She admits to palpitations, frequent nausea with burping. She is unable to identify alleviating or exacerbating factors, denying recent cardiac stress test she is referred to the hospitalist for evaluation. She denies recent change in medications and is otherwise been well. Patient denied any prior history of myocardial infarction, angina, congestive heart failure. She is however noted to have an abnormal EKG. Cardiac enzymes x2 has been negative. Stress test performed was reviewed. Please note that BMI mentioned his falls as patient probably weighs around 140 kg but patient was noted with weight of only 41 kg's. Patient does have a thick neck. Patient does describe history of diagnosed sleep apnea syndrome but not on CPAP therapy. Past Medical History Cardiac Medical History: Reports: Hyperlipidema, Hypertension Pulmonary Medical History: Reports: Asthma Endocrine Medical History: Reports: Diabetes Mellitus Type 2 GI Medical History: Reports: Gastroesophageal Reflux Disease, Hiatal Hernia Hematology: Reports: None Past Surgical History Past Surgical History: Reports: None Social History Information Source: Patient Lives with: Family Smoking Status: Current Every Day Smoker Frequency of Alcohol Use: None Drugs: None - Advance Directive Resuscitation Status: Full Code Family History Family History: Hypertension - Negative for premature coronary artery disease or sudden cardiac in the family amongst first degree relatives. Parental Family History Reviewed: Yes Children Family History Reviewed: Yes Sibling(s) Family History Reviewed.: Yes Medication/Allergy Home Medications: Atorvastatin Calcium [Lipitor 80 mg Tablet] 80 mg PO QHS MDD FILLED 11/04 FOR 30 DAY SUPPLY 02/15/18 Cetirizine HCl [Zyrtec 10 mg Tablet] 10 mg PO DAILY 02/15/18 Hydrochlorothiazide [Hydrodiuril 12.5 mg Tablet] 12.5 mg PO DAILY MDD FILLED FOR 30 DAY SUPPLY 02/15/18 Insulin Glargine,Hum.rec.anlog [Basaglar Kwikpen U-100] 75 unit SQ QHS 02/15/18 Insulin Lispro [Admelog Solostar] 15 unit SQ TID 02/15/18 Lisinopril [Prinivil] 20 mg PO DAILY MDD FILLED 11/04 FOR 30 DAY SUPPLY 02/15/18 Metformin HCl [Metformin HCl ER] 1,000 mg PO QAM 02/15/18 Montelukast Sodium [Singulair 10 mg Tablet] 10 mg PO QHS 02/15/18 Mv-Min/Iron/Folic/Calcium/Vitk [One-A-Day Women's Tablet] 1 each PO DAILY Omeprazole 40 mg PO DAILY 02/15/18 Aspirin [Aspirin 81 mg Chewable Tablet] 81 mg PO DAILY #90 tab.chew 02/16/18 Carvedilol [Coreg 3.125 mg Tablet] 3.125 mg PO Q12 #60 tablet 02/16/18 Allergies/Adverse Reactions: No Known Allergies Allergy (Unverified 02/14/18 21:31) Review of Systems Review of Systems: Please see history of present illness and past medical history as wall. Constitutional: No fever or chills reported. Head : No recent chronic headaches, recent head injury. Eyes: No recent eye pain, diplopia, redness, discharge, acute visual changes. Ears: No recent chronic ear pain, acute hearing loss, ear discharge. Oral cavity: No recent ulcerations, bleeding, oral cavity discomfort. Neck: No recent acute neck pain reported. Hematologic: No recent easy bruising or bleeding. Lymphatic: No recent lymph node enlargement reported. Cardiovascular system review: See history of present illness. Respiratory system review: No hemoptysis or blood clots in the lungs reported. Mild Shortness of breath on exertion Gastrointestinal system review: Negative for any recent acute hematemesis, melena. Genitourinary system review: No recent acute or chronic hematuria, flank pain, UTI etc. reported. Skin system review: Negative for any recent abnormal bruising, no rash, no pruritus reported. Neurologic: No prior history of strokes, mini strokes, seizure disorder. Psychologic: No history of major psychosis or major depression reported. Musculoskeletal: Minor aches and pains reported. No acute joint swelling reported. Endocrine: No recent polyuria, polydipsia, recent heat or cold intolerance. Physical Exam Vital Signs: Temp Pulse Resp BP Pulse Ox 98.5 F 89 20 105/52 L 99 02/15/18 16:19 02/15/18 16:19 02/15/18 16:19 02/15/18 16:19 02/15/18 16:19 Intake & Output 02/14/18 02/15/18 02/16/18 06:59 06:59 06:59 Intake Total 1241 Balance 1241 Weight 40 kg Exam: GENERAL: well-nourished and in no acute distress. Alert and oriented x3 HEAD: Atraumatic, normocephalic. EYES: VICENTE, sclera anicteric, conjunctiva are normal. ENT: Moist mucous membranes. No oral ulcerations or bleeding gums noted. No obvious ear, nose or throat abnormalities noted. NECK: supple without lymphadenopathy. Trachea is central. No cervical or axillary lymphadenopathy noted. Carotids are 2+, JVD WNL LUNGS: Breath sounds clear bilaterally. No wheezes rales or rhonchi noted. No significant dullness noted on percussion. CHEST: Palpation of the chest wall shows no significant chest wall tenderness. HEART: Guin COOKER CASING, No PSH, 1/6 WYATT aortic area, 1/6 garcia systolic murmur mitral area, no rubs, no gallops. ABDOMEN: Soft, no significant tenderness appreciated, normoactive bowel sounds. No guarding, no rebound. No rigidity noted . No masses appreciated. EXTREMITIES: Pedal pulses are 1-2+, no calf tenderness noted. No clubbing or cyanosis. negative pedal edema noted NEUROLOGICAL: Focused neurological exam showed no significant neurologic deficit. Normal speech, no focal weakness appreciated. PSYCH: Normal mood, normal affect. Judgment and insight within normal limits. SKIN: No significant ecchymosis, skin is noted to be warm. MUSCULOSKELETAL EXAM: No significant acute joint swelling noted. Results Laboratory Results: 02/15/18 03:34 Triglycerides 103 Cholesterol 181.23 LDL Cholesterol Direct 139 H VLDL Cholesterol 21.0 HDL Cholesterol 35 L 02/15/18 02/15/18 02/15/18 03:34 03:34 09:45 Creatine Kinase 66 CK-MB (CK-2) 0.84 0.89 Troponin I < 0.012 < 0.012 NT-Pro-B Natriuret Pep 02/15/18 02/15/18 15:26 15:26 Creatine Kinase CK-MB (CK-2) 0.73 Troponin I < 0.012 NT-Pro-B Natriuret Pep 1160 H EKG Comments: Sinus rhythm, QS complex V1 to V3 inversion anterior precordial lead consistent with prior anterior AR. However could well also be related to LVH. Impressions: Chest X-Ray 02/14/18 21:19 IMPRESSION: No acute disease. Assessment & Plan - Diagnosis (1) Chest pain Qualifiers: Chest pain type: unspecified Qualified Code(s): R07.9 - Chest pain, unspecified Is this a current diagnosis for this admission?: Yes (2) Diabetes Qualifiers: Diabetes mellitus type: type 2 Diabetes mellitus shelter insulin use: unspecified shelter insulin use status Diabetes mellitus complication status : with unspecified complications Qualified Code(s): E11.8 - Type 2 diabetes mellitus with unspecified complications Is this a current diagnosis for this admission?: Yes (3) Dyslipidemia Is this a current diagnosis for this admission?: Yes (4) GERD (gastroesophageal reflux disease) Is this a current diagnosis for this admission?: Yes (5) Hypertension Qualifiers: Hypertension type: essential hypertension Qualified Code(s): I10 - Essential (primary) hypertension Is this a current diagnosis for this admission?: Yes (6) Obesity Qualifiers: Obesity type: unspecified obesity type Obesity classification: unspecified obesity classification Is this a current diagnosis for this admission?: Yes (7) Sleep-disordered breathing Is this a current diagnosis for this admission?: Yes - Notes Notes: Chest pain: This was evaluated with a nuclear stress test which was technically suboptimal with significant attenuation artifact and possibly problems with gating. It did show depressed LVEF but 2D echo showed normal low normal LVEF. In addition mild to moderate LVH was noted. No significant valvular abnormalities noted. Discussed low confidence in his stress test results with the patient and recommended further evaluation be completed as an outpatient which could include stress echo if patient can walk on a treadmill or could include a cardiac CT angiogram. In the meantime patient to be treated with very aggressive risk factor modification and medical management. In this regard patient should continue with statins, antiplatelet therapy, beta-krish therapy, ELBA inhibitor/angiotensin receptor krish therapy. For further risk stratification, will recommend a chest CT to rule out other causes of chest pain and also at the same time will review for any coronary calcification. Patient encouraged to ambulate and report any chest pain. Diabetes: Patient will benefit from good control of blood pressure but should avoid any hyper or hypoglycemia. Dyslipidemia: Patient will benefit from high potency statin therapy with LDL goal of less than 70 in this young lady with diabetes. Hypertension: Blood pressure goal should be 135/85 or less. Preferred medication will be ELBA inhibitor/ARB. Obesity: Patient will benefit from weight loss. Please note that weight recorded in the chart is completely wrong and patient obviously has obese body habitus. Sleep disorder: Patient describes previous diagnosis of sleep apnea. Patient will benefit from CPAP therapy. This can be arranged through my office if needed. - Time Time Spent: 30 to 50 Minutes Medications reviewed and adjusted accordingly: Yes
== END 2018-02-16 14:59 | disposition home or self-care (01) ==
LOC: ER 21:11 → EH 23:31 → 5 02-15 01:25
PROVIDERS: ADMIT Internal Medicine; ATTEND Internal Medicine
DX: R07.89 Other chest pain (principal); R94.31 Abnormal electrocardiogram [ECG] [EKG]; R91.1 Solitary pulmonary nodule; E11.8 Type 2 diabetes mellitus with unspecified complications; E78.5 Hyperlipidemia, unspecified; I10 Essential (primary) hypertension; K21.9 Gastro-esophageal reflux disease without esophagitis; R00.2 Palpitations; R11.0 Nausea; R14.2 Eructation; E66.9 Obesity, unspecified; G47.30 Sleep apnea, unspecified; J45.909 Unspecified asthma, uncomplicated; F17.210 Nicotine dependence, cigarettes, uncomplicated; Z23 Encounter for immunization; Z82.49 Family history of ischemic heart disease and other diseases of the circulatory system
CPT/HCPCS: 93005; 96376; 99285; 96374; 96375; 36415 ×3; 84439; 82553 ×2; 82962 ×2; 82550 ×2; 84443; 85025; 80048; 80053; 84484 ×2; 84481; 83036; 80061; 83880 ×2; 93306; 93017; 71045; 78452; 71275; 90686; 93010; G0378 ×4; G0008; A9500; J2785; J3490 ×24; J1815 ×2; J2270; J2405; J0280; Q9969; 90471

== ENCOUNTER 2018-03-17 00:46 | Inpatient (IN) | payer MEDICAID ==
[2018-03-17] MEDS ORDERED: ASPIRIN 81 MG TABLET, CHEWABLE PO ONE (00:57)
--- NOTE | 2018-03-17 01:28 | ER Document Report ---
ED Cardiac - General Chief Complaint: Chest Pain Stated Complaint: CHEST PAIN Time Seen by Provider: 03/17/18 00:57 Notes: Patient is a 53-year-old female presenting to the emergency department complaining of chest pain in the center of her chest. Patient states this morning she woke up dizzy. States she tends to get dizzy when she exerts herself but this morning she found herself dizzy without any exertion. Patient also notes that she had pain in the center of her chest sharp that radiated to her right and left shoulders. Patient also noted a nauseated feeling. Patient denies any vomiting, diarrhea, fever, URI symptoms. Patient states she did take 2 nitroglycerin at home but states helped her chest pain "a little." Patient states she was given another sublingual nitroglycerin by EMS and that has since resolved her chest pain. According to EMS reports she also got 324 of ASA and 4 mg of Zofran IVP. Patient states she was admitted to this facility on 02/16/2018 and seen by design analyst Dr. Huggins for a stress test. Patient states she followed up with Dr. Huggins and has a cardiac catheterization scheduled in [place] on 2017. Patient states today the chest pain increased which worried her and why she inevitably called 911. Past medical history: Hypertension, hyperlipidemia, diabetes, coronary artery disease Medications: Nitroglycerin, lisinopril, aspirin, atorvastatin, metformin, carvedilol, Zyrtec, ranexa Allergies: None TRAVEL OUTSIDE OF THE [place] IN LAST 30 DAYS: No - Related Data Allergies/Adverse Reactions: No Known Allergies Allergy (Unverified 02/14/18 21:31) Past Medical History - General Information source: Patient - Social History Smoking Status: Never Smoker Drug Abuse: None Lives with: Family Family History: Hypertension - Negative for premature coronary artery disease or sudden cardiac in the family amongst first degree relatives. Patient has suicidal ideation: No Patient has homicidal ideation: No - Past Medical History Cardiac Medical History: Reports: Hx Hypercholesterolemia, Hx Hypertension Pulmonary Medical History: Reports: Hx Asthma Endocrine Medical History: Reports: Hx Diabetes Mellitus Type 2 Renal/ Medical History: Denies: Hx Peritoneal Dialysis GI Medical History: Reports: Hx Gastroesophageal Reflux Disease, Hx Hiatal Hernia Review of Systems - Review of Systems Constitutional: See HPI EENT: No symptoms reported Cardiovascular: See HPI Respiratory: See HPI Gastrointestinal: See HPI Genitourinary: No symptoms reported Female Genitourinary: No symptoms reported Musculoskeletal: See HPI Skin: No symptoms reported Hematologic/Lymphatic: No symptoms reported Neurological/Psychological: No symptoms reported Physical Exam - Vital signs Vitals: Temp Pulse Ox 98.1 F 97 03/17/18 00:55 03/17/18 00:55 - Notes Notes: GENERAL: Obese, alert, interacts well. No acute distress. HEAD: Normocephalic, atraumatic. EYES: Pupils equal, round, and reactive to light. Extraocular movements intact. ENT: Oral mucosa moist, tongue midline. NECK: Full range of motion. Supple. Trachea midline. LUNGS: Clear to auscultation bilaterally, no wheezes, rales, or rhonchi. No respiratory distress. HEART: Regular rate and rhythm. No murmur ABDOMEN: Soft, non-tender. Non-distended. Bowel sounds present in all 4 quadrants. EXTREMITIES: Moves all 4 extremities spontaneously. No edema, normal radial and dorsalis pedis pulses bilaterally. No cyanosis. BACK: no cervical, thoracic, lumbar midline tenderness. No saddle anesthesia, normal distal neurovascular exam. NEUROLOGICAL: Alert and oriented x3. Normal speech. cranial nerves II through XII grossly intact PSYCH: Normal affect, normal mood. SKIN: Warm, dry, normal turgor. No rashes or lesions noted. Course - Re-evaluation Re-evalutation: 03/17/18 01:28 This is a note from Dr. Huggins on 02/16/2018 "Chest pain: This was evaluated with a nuclear stress test which was technically suboptimal with significant attenuation artifact and possibly problems with gating. It did show depressed LVEF but 2D echo showed normal low normal LVEF. In addition mild to moderate LVH was noted. No significant valvular abnormalities noted. Discussed low confidence in his stress test results with the patient and recommended further evaluation be completed as an outpatient which could include stress echo if patient can walk on a treadmill or could include a cardiac CT angiogram. In the meantime patient to be treated with very aggressive risk factor modification and medical management. In this regard patient should continue with statins, antiplatelet therapy, beta-krish therapy, ELBA inhibitor/angiotensin receptor krish therapy. For further risk stratification, we did order a chest CT which was negative for coronary calcification. Diabetes: Patient will benefit from good control of blood pressure but should avoid any hyper or hypoglycemia. Dyslipidemia: Patient will benefit from high potency statin therapy with LDL goal of less than 70 in this young lady with diabetes. Hypertension: Blood pressure goal should be 135/85 or less. Preferred medication will be ELBA inhibitor/ARB. Obesity: Patient will benefit from weight loss. Sleep disorder: Patient describes previous diagnosis of sleep apnea. Patient will benefit from his CPAP therapy. This can be arranged through my office if needed." Patient states she does have a cardiac catheterization scheduled in [place] on 03/21/2018. Patient states today the chest pain was worse than ever in the center of his chest radiating down her right and left arm. Patient states this worried her which is why she presents to the emergency room. Patient continues to be chest pain-free with her home nitro and the nitro given by EMS. Vitals remained stable at this time. 03/17/18 02:[address] Huggins who stated to admit the Pt for a chest pains rule out. He stated she did not need an emergent cath. Dr. Huggins then called back and stated he remembered the pt. better and he stated that I should repeat the Trop, if it is negative then admit at [facility] for chest pain rule out and if it is elevated than transfer the Pt. Repeat Trop ordered for 0430 03/17/18 06:06 Someone had cancelled the repeat Trop 03/17/18 06:51 Repeat Trop negative at this time. Discussed case with Dr. Tejada the hospitalist who will admit the pt for chest pain rule out, tele obs. Pt. is stable at this time discussed with her at bedside the plan. - Vital Signs Vital signs: Temp Pulse Resp BP Pulse Ox 98.1 F 20 129/80 H 98 03/17/18 00:55 03/17/18 01:00 03/17/18 00:59 03/17/18 01:11 - Laboratory Result Diagrams: 03/17/18 01:33 03/17/18 01:33 Laboratory results interpreted by me: 03/17/18 01:33 Glucose 142 H Discharge - Discharge Clinical Impression: Chest pain Qualifiers: Chest pain type: unspecified Qualified Code(s): R07.9 - Chest pain, unspecified Disposition: ADMITTED OBSERVATION Admitting Provider: Adelaida Tejada Unit Admitted: Telemetry
[2018-03-17 01:55] LABS: INTERNATIONAL RATION (INR) 0.99; PROTHROMBIN TIME 13.6 SEC (11.4-15.4)
--- NOTE | 2018-03-17 01:55 | RADIOLOGY REPORT (SQ) ---
CLINICAL HISTORY: CP COMPARISON: None. 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 Lungs are clear without consolidation, atelectasis, mass or edema. There is no pleural effusion. There is no pneumothorax. There are no acute osseous findings. IMPRESSION: Clear lungs.
[2018-03-17 02:03] LABS: ALANINE AMINOTRANSFERASE 21 U/L (9-52); ALBUMIN 3.9 g/dL (3.5-5.0); ALKALINE PHOSPHATASE 92 U/L (38-126); ANION GAP 15 (5-19); ASPARTATE AMINO TRANSFERASE 15 U/L (14-36); BILIRUBIN,DIRECT 0.2 mg/dL (0.0-0.4); BILIRUBIN,TOTAL 0.3 mg/dL (0.2-1.3); BLOOD UREA NITROGEN 12 mg/dL (7-20); CARBON DIOXIDE 22 mmol/L (22-30); CHLORIDE 106 mmol/L (98-107); CREATINE KINASE 71 U/L (30-135); GLUCOSE 142 mg/dL (75-110); POTASSIUM 4.2 mmol/L (3.6-5.0); SODIUM 142.7 mmol/L (137-145); TOTAL PROTEIN 7.1 g/dL (6.3-8.2)
[2018-03-17 02:06] LABS: ABSOLUTE EOSINOPHILS # (AUTO) 0.1 10^3/uL (0.0-0.6); ABSOLUTE LYMPHOCYTES (AUTO) 2.2 10^3/uL (0.5-4.7); ABSOLUTE MONOCYTES (AUTO) 0.5 10^3/uL (0.1-1.4); ABSOLUTE NEUT (AUTO) 4.5 10^3/uL (1.7-8.2); BASOPHILS % (AUTO) 0.5 % (0-2); EOSINOPHILS % (AUTO) 1.4 % (0-6); HEMATOCRIT 37.4 % (36.0-47.0); HEMOGLOBIN 12.3 g/dL (12.0-15.5); LYMPHOCYTES % (AUTO) 29.7 % (13-45); MEAN CORPUSCULAR HEMOGLOBIN 27.9 pg (27.0-33.4); MEAN CORPUSCULAR HGB CONC 32.9 g/dL (32.0-36.0); MEAN CORPUSCULAR VOLUME 85 fl (80-97); MONOCYTES % (AUTO) 7.2 % (3-13); PLATELET COUNT 271 10^3/uL (150-450); RED BLOOD COUNT 4.41 10^6/uL (3.72-5.28); RED CELL DISTRIBUTION WIDTH 13.9 % (11.5-14.0); SEGMENTED NEUTROPHILS % (AUTO) 61.2 % (42-78); TOTAL CELLS COUNTED % (AUTO) 100 %; WHITE BLOOD COUNT 7.4 10^3/uL (4.0-10.5)
[2018-03-17 02:15] LABS: CREATINE KINASE MB 0.36 ng/mL (<4.55)
[2018-03-17 02:19] LABS: TROPONIN I < 0.012 ng/mL
[2018-03-17] MEDS ORDERED: DEXTROSE 40% GEL 15 GM TUBE PO PRN ×2 (03:05)
[2018-03-17] MEDS ORDERED: GLUCAGON,HUMAN RECOMB 1 MG INJ IM PRN (03:05)
[2018-03-17] MEDS ORDERED: DEXTROSE 50%-WATER 25 GM/50 ML DISP.SYRIN IV PRN ×2 (03:05)
--- NOTE | 2018-03-17 07:35 | PDOC H&P ---
History of Present Illness Admission Date/PCP: 03/17/18 06:10 MARA CARBAJAL MD Patient complains of: Chest pain History of Present Illness: TYRON SIMON is a 53 year old female with a past medical history of obesity, gastritis, hiatal hernia, hypertension, dyslipidemia, diabetes, tobacco dependence and a indeterminant Cardiolite stress test prompting scheduling of outpatient cardiac catheterization at [facility] 03/21/2018. Patient returns the emergency room with retrosternal chest pain radiating to the arms bilaterally associated with palpitations, nausea and burping. She is unable to identify alleviating or exacerbating factors. In the emergency room she has an unremarkable initial workup. Cardiology Dr. Huggins consulted by emergency room provider recommending chest pain observation with serial cardiac enzymes. Past Medical History Cardiac Medical History: Reports: Hyperlipidema, Hypertension Pulmonary Medical History: Reports: Asthma Endocrine Medical History: Reports: Diabetes Mellitus Type 2 GI Medical History: Reports: Gastroesophageal Reflux Disease, Hiatal Hernia Past Surgical History Past Surgical History: Reports: None Social History Information Source: Patient, [facility] Records Lives with: Family Smoking Status: Never Smoker Frequency of Alcohol Use: None Drugs: None - Advance Directive Resuscitation Status: Full Code Family History Family History: Hypertension - Negative for premature coronary artery disease or sudden cardiac in the family amongst first degree relatives. Parental Family History Reviewed: Yes Children Family History Reviewed: Yes Sibling(s) Family History Reviewed.: Yes Medication/Allergy Home Medications: Atorvastatin Calcium [Lipitor 80 mg Tablet] 80 mg PO QHS MDD FILLED 11/04 FOR 30 DAY SUPPLY 02/15/18 Cetirizine HCl [Zyrtec 10 mg Tablet] 10 mg PO DAILY 02/15/18 Hydrochlorothiazide [Hydrodiuril 12.5 mg Tablet] 12.5 mg PO DAILY MDD FILLED FOR 30 DAY SUPPLY 02/15/18 Insulin Glargine,Hum.rec.anlog [Basaglar Kwikpen U-100] 75 unit SQ QHS 02/15/18 Insulin Lispro [Admelog Solostar] 15 unit SQ TID 02/15/18 Lisinopril [Prinivil] 20 mg PO DAILY MDD FILLED 11/04 FOR 30 DAY SUPPLY 02/15/18 Metformin HCl [Metformin HCl ER] 1,000 mg PO QAM 02/15/18 Montelukast Sodium [Singulair 10 mg Tablet] 10 mg PO QHS 02/15/18 Mv-Min/Iron/Folic/Calcium/Vitk [One-A-Day Women's Tablet] 1 each PO DAILY Omeprazole 40 mg PO DAILY 02/15/18 Aspirin [Aspirin 81 mg Chewable Tablet] 81 mg PO DAILY #90 tab.chew 02/16/18 Carvedilol [Coreg 3.125 mg Tablet] 3.125 mg PO Q12 #60 tablet 02/16/18 Allergies/Adverse Reactions: No Known Allergies Allergy (Unverified 02/14/18 21:31) Review of Systems Constitutional: ABSENT: chills, fever(s), headache(s), weight gain, weight loss Eyes: ABSENT: visual disturbances Ears: ABSENT: hearing changes Cardiovascular: ABSENT: chest pain, dyspnea on exertion, edema, orthropnea, palpitations Respiratory: ABSENT: cough, hemoptysis Gastrointestinal: ABSENT: abdominal pain, constipation, diarrhea, hematemesis, hematochezia, nausea, vomiting Genitourinary: ABSENT: dysuria, hematuria Musculoskeletal: ABSENT: joint swelling Integumentary: ABSENT: rash, wounds Neurological: ABSENT: abnormal gait, abnormal speech, confusion, dizziness, focal weakness, syncope Psychiatric: ABSENT: anxiety, depression, homidical ideation, suicidal ideation Endocrine: ABSENT: cold intolerance, heat intolerance, polydipsia, polyuria Hematologic/Lymphatic: ABSENT: easy bleeding, easy bruising Physical Exam Vital Signs: Temp Pulse Resp BP Pulse Ox 98.1 F 20 103/62 100 03/17/18 00:55 03/17/18 04:01 03/17/18 06:01 03/17/18 06:01 General appearance: PRESENT: no acute distress, well-developed, well-nourished Head exam: PRESENT: atraumatic, normocephalic Eye exam: PRESENT: conjunctiva pink, EOMI, PERRLA. ABSENT: scleral icterus Ear exam: PRESENT: normal external ear exam Mouth exam: PRESENT: moist, tongue midline Neck exam: ABSENT: carotid bruit, JVD, lymphadenopathy, thyromegaly Respiratory exam: PRESENT: clear to auscultation dewayne. ABSENT: rales, rhonchi, wheezes Cardiovascular exam: PRESENT: RRR. ABSENT: diastolic murmur, rubs, systolic murmur Pulses: PRESENT: normal dorsalis pedis pul Vascular exam: PRESENT: normal capillary refill GI/Abdominal exam: PRESENT: normal bowel sounds, soft. ABSENT: distended, guarding, mass, organolmegaly, rebound, tenderness Rectal exam: PRESENT: deferred Extremities exam: PRESENT: full ROM. ABSENT: calf tenderness, clubbing, pedal edema Neurological exam: PRESENT: alert, awake, oriented to person, oriented to place , oriented to time, oriented to situation, CN II-XII grossly intact. ABSENT: motor sensory deficit Psychiatric exam: PRESENT: appropriate affect, normal mood. ABSENT: homicidal ideation, suicidal ideation Skin exam: PRESENT: dry, intact, warm. ABSENT: cyanosis, rash Results Impressions: Chest X-Ray 03/17/18 00:58 IMPRESSION: Clear lungs. Assessment & Plan - Diagnosis (1) Chest pain Qualifiers: Chest pain type: unspecified Qualified Code(s): R07.9 - Chest pain, unspecified Is this a current diagnosis for this admission?: Yes Plan: Scheduled cardiac catheterization 03/21/2018 at [facility], somewhat atypical, serial cardiac enzymes, follow-up Dr. Huggins cardiology consult. (2) Diabetes Qualifiers: Is this a current diagnosis for this admission?: Yes Plan: Outpatient regimen with Humalog sliding scale (3) Dyslipidemia Is this a current diagnosis for this admission?: Yes Plan: Lipitor (4) GERD (gastroesophageal reflux disease) Is this a current diagnosis for this admission?: Yes Plan: Outpatient regiment with Carafate trial (5) Obesity Is this a current diagnosis for this admission?: Yes Plan: Morbid obesity will evaluate for metabolic cause with evaluation of thyroid function and dietitian consultation - Time Time Spent: 30 to 50 Minutes - Inpatient Certification Medical Necessity: Need Close Monitoring Due to Risk of Patient Decompensation
[2018-03-17] MEDS: LANSOPRAZOLE 30 MG TAB.RAP.DR PO SCH (08:37)
[2018-03-17] MEDS: SUCRALFATE SUSP 1 GM/10 ML UDCUP PO SCH ×4 (08:37→23:39)
[2018-03-17] MEDS ORDERED: ONDANSETRON HCL INJ/PF 4 MG/2 ML SDV ONE (09:30)
[2018-03-17] MEDS: CETIRIZINE 10 MG TABLET PO SCH (09:35)
[2018-03-17] MEDS: DOCUSATE SODIUM 100 MG CAPSULE PO SCH ×2 (09:35→17:27)
[2018-03-17] MEDS: HYDROCHLOROTHIAZIDE 12.5 MG TABLET PO SCH (09:35)
[2018-03-17] MEDS: LISINOPRIL 10 MG TABLET PO SCH (09:35)
[2018-03-17] MEDS: INSULIN LISPRO 100 UNIT/ML 3 ML VIAL SUBCUT SCH ×3 (09:36→17:28)
[2018-03-17] MEDS: ASPIRIN 81 MG TABLET, CHEWABLE PO SCH (09:36)
--- NOTE | 2018-03-17 09:41 | EKG REPORT ---
SEVERITY:- ABNORMAL ECG - SINUS RHYTHM LEFT VENTRICULAR HYPERTROPHY ANTERIOR Q WAVES, POSSIBLY DUE TO LVH BORDERLINE PROLONGED QT INTERVAL : Confirmed by: Yaneth Huggins 17-Mar-2018 09:39:55
[2018-03-17] MEDS ORDERED: CARVEDILOL 3.125 MG TABLET PO SCH (10:00)
[2018-03-17] MEDS ORDERED: ACETAMINOPHEN 325 MG TABLET ONE (10:07)
--- NOTE | 2018-03-17 11:15 | PDOC PROGRESS REPORT ---
Subjective Progress Note for:: 03/17/18 Subjective:: 53-year-old female came in last night with chest pain. She is asymptomatic at the time of examination by me. No acute events after the admission. Denies any complaints. Reason For Visit: CHEST PAIN Physical Exam Vital Signs: Temp Pulse Resp BP Pulse Ox 97.4 F 76 12 111/68 100 03/17/18 08:53 03/17/18 08:53 03/17/18 08:53 03/17/18 08:53 03/17/18 08:53 Intake & Output 03/16/18 03/17/18 03/18/18 06:59 06:59 06:59 Weight 110 kg General appearance: PRESENT: no acute distress Head exam: PRESENT: atraumatic Eye exam: PRESENT: PERRLA Mouth exam: PRESENT: moist Neck exam: ABSENT: carotid bruit, JVD, lymphadenopathy, thyromegaly Respiratory exam: PRESENT: clear to auscultation dewayne. ABSENT: rales, rhonchi, wheezes Cardiovascular exam: PRESENT: RRR. ABSENT: diastolic murmur, rubs, systolic murmur Extremities exam: PRESENT: full ROM. ABSENT: calf tenderness, clubbing, pedal edema Neurological exam: PRESENT: alert, awake, oriented to person, oriented to place , oriented to time, oriented to situation, CN II-XII grossly intact. ABSENT: motor sensory deficit Psychiatric exam: PRESENT: appropriate affect, normal mood. ABSENT: homicidal ideation, suicidal ideation Results Impressions: Chest X-Ray 03/17/18 00:58 IMPRESSION: Clear lungs. Assessment & Plan - Diagnosis (1) Chest pain Qualifiers: Chest pain type: unspecified Qualified Code(s): R07.9 - Chest pain, unspecified Is this a current diagnosis for this admission?: Yes Plan: 03/17/2018-patient has history of chest pain prior. She is following with Dr. Huggins as an outpatient. She is supposed to go for schedule cardiac cath on 02/2018 at [facility] in [place]. In the meantime she came to the emergency room with chest pain. 2 sets of troponins are negative. Dr. Huggins is aware that the patient is he is here. Patient was on aspirin, statins , ELBA inhibitor, beta-krish, nitroglycerin every 5 minutes as needed for chest pain, morphine 2 mg IV every 4 as needed for chest pain, lipid panel was requested to for tomorrow. Patient is on Lovenox 40 mg subcu daily for prophylaxis. Third set of troponins are pending. Neurology consult for Dr. Huggins was placed. (2) Diabetes Qualifiers: Diabetes mellitus type: type 2 Is this a current diagnosis for this admission?: Yes Plan: 03/17/2018-patient has a long history of diabetes. Latest blood sugar is 142. He is on metformin at home. Which was on hold and she is on insulin sliding scale. I am going to request for hemoglobin A1c for tomorrow. (3) Obesity Is this a current diagnosis for this admission?: Yes Plan: 03/17/2018 patient has morbid obesity with BMI of 34. Dietary consult was placed. Diet and exercise weight loss was recommended. Will check for a thyroid function.
[2018-03-17] MEDS: MULTIVITAMIN TABLET PO SCH (12:23)
[2018-03-17] MEDS: INSULIN LISPRO 100 UNIT/ML 3 ML VIAL SUBCUT PRN ×2 (12:23→17:28)
[2018-03-17 12:49] LABS: CREATINE KINASE MB 0.32 ng/mL (<4.55)
[2018-03-17 12:55] LABS: TROPONIN I < 0.012 ng/mL
[2018-03-17] MEDS: METOPROLOL SUCCINATE 25 MG TAB.SR.24H PO SCH ×2 (13:25→23:32)
[2018-03-17] MEDS: RANOLAZINE 500 MG TAB.SR.12H PO SCH ×2 (13:25→22:38)
[2018-03-17] MEDS: MORPHINE SULFATE 10 MG/ML INJ IV PRN ×3 (13:26→23:39)
[2018-03-17] MEDS ORDERED: LORAZEPAM INJ 2 MG/1 ML VIAL IV PRN (14:06)
[2018-03-17] MEDS: NITROGLYCERIN 0.4 MG/TAB 25 TAB/BOTTLE SL PRN ×3 (15:55→16:09)
[2018-03-17] MEDS: ACETAMINOPHEN 325 MG TABLET PO PRN (16:21)
[2018-03-17] MEDS: MAG HYDROX/AL HYDROX/SIMETH SUSP 30 ML UDCUP PO PRN (16:22)
[2018-03-17 16:46] LABS: CREATINE KINASE MB 0.26 ng/mL (<4.55)
[2018-03-17 16:48] LABS: TROPONIN I < 0.012 ng/mL
[2018-03-17] MEDS: ONDANSETRON HCL INJ/PF 4 MG/2 ML SDV IV PRN (20:07)
[2018-03-17] MEDS: ATORVASTATIN CALCIUM 80 MG TABLET PO SCH (22:38)
[2018-03-17 22:43] LABS: CREATINE KINASE MB 0.41 ng/mL (<4.55)
[2018-03-17] MEDS: MONTELUKAST SODIUM 10 MG TABLET PO SCH (22:45)
[2018-03-17] MEDS: INSULIN GLARGINE,HUM.REC.ANLOG 300 UNIT/3 ML INSULN.PEN SUBCUT SCH (22:45)
[2018-03-17 22:46] LABS: TROPONIN I < 0.012 ng/mL
[2018-03-18] MEDS: SUCRALFATE SUSP 1 GM/10 ML UDCUP PO SCH ×4 (06:10→23:10)
[2018-03-18] MEDS: LANSOPRAZOLE 30 MG TAB.RAP.DR PO SCH ×2 (06:10→17:12)
[2018-03-18] MEDS: MORPHINE SULFATE 10 MG/ML INJ IV PRN ×2 (06:19→17:44)
[2018-03-18] MEDS: ONDANSETRON HCL INJ/PF 4 MG/2 ML SDV IV PRN ×3 (07:43→17:47)
[2018-03-18] MEDS: NITROGLYCERIN 0.4 MG/TAB 25 TAB/BOTTLE SL PRN ×2 (07:45→07:52)
[2018-03-18 08:39] LABS: HEMATOCRIT 35.7 % (36.0-47.0); HEMOGLOBIN 11.7 g/dL (12.0-15.5); MEAN CORPUSCULAR HEMOGLOBIN 27.8 pg (27.0-33.4); MEAN CORPUSCULAR HGB CONC 32.8 g/dL (32.0-36.0); MEAN CORPUSCULAR VOLUME 85 fl (80-97); PLATELET COUNT 235 10^3/uL (150-450); RED BLOOD COUNT 4.21 10^6/uL (3.72-5.28); RED CELL DISTRIBUTION WIDTH 14.2 % (11.5-14.0); WHITE BLOOD COUNT 6.6 10^3/uL (4.0-10.5)
[2018-03-18 09:22] LABS: FREE T3 3.35 pg/mL (2.77-5.27); FREE T4 (FREE THYROXINE) 1.16 ng/dL (0.78-2.19)
[2018-03-18] MEDS: INSULIN LISPRO 100 UNIT/ML 3 ML VIAL SUBCUT SCH ×3 (09:23→17:12)
[2018-03-18] MEDS: ASPIRIN 81 MG TABLET, CHEWABLE PO SCH (09:33)
[2018-03-18] MEDS: RANOLAZINE 500 MG TAB.SR.12H PO SCH ×2 (09:33→21:37)
[2018-03-18] MEDS: ACETAMINOPHEN 325 MG TABLET PO PRN (09:35)
[2018-03-18] MEDS: MULTIVITAMIN TABLET PO SCH (09:35)
[2018-03-18] MEDS: DOCUSATE SODIUM 100 MG CAPSULE PO SCH ×2 (09:35→17:12)
[2018-03-18 09:36] LABS: THYROID STIMULATING HORMONE 1.32 uIU/mL (0.47-4.68)
[2018-03-18] MEDS: CETIRIZINE 10 MG TABLET PO SCH (09:36)
[2018-03-18] MEDS: METOPROLOL SUCCINATE 25 MG TAB.SR.24H PO SCH ×2 (09:37→21:33)
[2018-03-18] MEDS: HYDROCHLOROTHIAZIDE 12.5 MG TABLET PO SCH (09:38)
[2018-03-18] MEDS: LISINOPRIL 10 MG TABLET PO SCH (09:38)
[2018-03-18] MEDS ORDERED: (PENDING PHARMACY ID) (Mv-Min/Iron/Folic/Calcium/Vitk [One-A-Day Women's Tablet] 1 EACH) PO SCH (10:00)
[2018-03-18 10:10] LABS: ANION GAP 13 (5-19); BLOOD UREA NITROGEN 15 mg/dL (7-20); CALCIUM 8.9 mg/dL (8.4-10.2); CARBON DIOXIDE 25 mmol/L (22-30); CHLORIDE 103 mmol/L (98-107); CHOLESTEROL 139.31 mg/dL (0-200); CREATINE KINASE 51 U/L (30-135); GLUCOSE 174 mg/dL (75-110); POTASSIUM 4.8 mmol/L (3.6-5.0); SODIUM 140.6 mmol/L (137-145); TRIGLYCERIDES 109 mg/dL (<150)
[2018-03-18 10:21] LABS: DIRECT LDL 97 mg/dL (<100)
[2018-03-18] MEDS ORDERED: LISINOPRIL 10 MG TABLET PO SCH (10:45)
--- NOTE | 2018-03-18 10:57 | PDOC PROGRESS REPORT ---
Subjective Progress Note for:: 03/18/18 Subjective:: The patient is a 53-year-old female with a past medical history of obesity, gastritis, hiatal hernia, hypertension, dyslipidemia, diabetes, and tobacco dependence with continuous use who was admitted 03/17/18 for chest pain. Patient is actually scheduled for cardiac catheterization at [facility] 03/21/18. Patient was seen on morning rounds. She was found resting in bed comfortably on room air. I had just received a phone call from the nurse reporting the patient did have active chest pain this morning it was responsive to 3 tabs of sublingual nitroglycerin. The patient states that the pain was substernal, nonradiating, associated with shortness of breath, and diaphoresis. She is unable to describe the quality of the pain. She reports that shortly after experiencing the chest pain she had a sudden severe pain to the dorsal portion of her left foot; she denies injury, muscle cramps, radiation. She no longer has any discomfort. She has no other questions or concerns at this time. No concerns per nursing. Reason For Visit: CHEST PAIN Physical Exam Vital Signs: Temp Pulse Resp BP Pulse Ox 97.8 F 72 16 115/79 100 03/18/18 07:53 03/18/18 07:56 03/18/18 07:53 03/18/18 07:56 03/18/18 07:56 Intake & Output 03/17/18 03/18/18 03/19/18 06:59 06:59 06:59 Intake Total 1020 Output Total 550 Balance 470 Weight 110.2 kg General appearance: PRESENT: no acute distress, morbidly obese, well-developed, well-nourished Head exam: PRESENT: atraumatic, normocephalic Eye exam: PRESENT: conjunctiva pink, EOMI, PERRLA. ABSENT: scleral icterus Ear exam: PRESENT: normal external ear exam Mouth exam: PRESENT: moist, tongue midline Neck exam: ABSENT: carotid bruit, JVD, lymphadenopathy, thyromegaly Respiratory exam: PRESENT: clear to auscultation dewayne, symmetrical, unlabored. ABSENT: rales, rhonchi, wheezes Cardiovascular exam: PRESENT: RRR, +S1, +S2. ABSENT: diastolic murmur, rubs, systolic murmur Pulses: PRESENT: normal dorsalis pedis pul Vascular exam: PRESENT: normal capillary refill GI/Abdominal exam: PRESENT: normal bowel sounds, soft. ABSENT: distended, guarding, mass, organolmegaly, rebound, tenderness Rectal exam: PRESENT: deferred Extremities exam: PRESENT: full ROM. ABSENT: calf tenderness, clubbing, pedal edema Neurological exam: PRESENT: alert, awake, oriented to person, oriented to place , oriented to time, oriented to situation, CN II-XII grossly intact. ABSENT: motor sensory deficit Psychiatric exam: PRESENT: anxious, appropriate affect, normal mood. ABSENT: homicidal ideation, suicidal ideation Skin exam: PRESENT: dry, intact, warm. ABSENT: cyanosis, rash Results Laboratory Results: 03/18/18 05:29 03/18/18 09:34 03/18/18 03/18/18 03/18/18 05:29 05:29 05:29 WBC 6.6 RBC 4.21 Hgb 11.7 L Hct 35.7 L MCV 85 MCH 27.8 MCHC 32.8 RDW 14.2 H Plt Count 235 Sodium Potassium Chloride Carbon Dioxide Anion Gap BUN Creatinine Est GFR ( Amer) Est GFR (Non-Af Amer) Glucose Calcium Triglycerides Cancelled Cholesterol Cancelled LDL Cholesterol Direct Cancelled VLDL Cholesterol Cancelled HDL Cholesterol Cancelled TSH Cancelled Free T4 Free T3 pg/mL 03/18/18 03/18/18 03/18/18 07:30 07:30 07:30 WBC RBC Hgb Hct MCV MCH MCHC RDW Plt Count Sodium Cancelled Potassium Cancelled Chloride Cancelled Carbon Dioxide Cancelled Anion Gap Cancelled BUN Cancelled Creatinine Cancelled Est GFR ( Amer) Cancelled Est GFR (Non-Af Amer) Cancelled Glucose Cancelled Calcium Cancelled Triglycerides Cancelled Cholesterol Cancelled LDL Cholesterol Direct Cancelled VLDL Cholesterol Cancelled HDL Cholesterol Cancelled TSH 1.32 Free T4 Free T3 pg/mL 03/18/18 03/18/18 07:30 09:34 WBC RBC Hgb Hct MCV MCH MCHC RDW Plt Count Sodium 140.6 Potassium 4.8 Chloride 103 Carbon Dioxide 25 Anion Gap 13 BUN 15 Creatinine 0.85 Est GFR ( Amer) > 60 Est GFR (Non-Af Amer) > 60 Glucose 174 H Calcium 8.9 Triglycerides 109 Cholesterol 139.31 LDL Cholesterol Direct 97 VLDL Cholesterol 22.0 HDL Cholesterol 31 L TSH 1.32 Free T4 1.16 Free T3 pg/mL 3.35 03/17/18 03/17/18 03/17/18 12:07 16:10 22:10 Creatine Kinase CK-MB (CK-2) 0.32 0.26 0.41 Troponin I < 0.012 < 0.012 < 0.012 NT-Pro-B Natriuret Pep 03/18/18 03/18/18 03/18/18 05:29 07:30 07:30 Creatine Kinase Cancelled Cancelled CK-MB (CK-2) Troponin I NT-Pro-B Natriuret Pep Cancelled 03/18/18 03/18/18 09:34 09:34 Creatine Kinase 51 CK-MB (CK-2) Troponin I NT-Pro-B Natriuret Pep 153 Impressions: Chest X-Ray 03/17/18 00:58 IMPRESSION: Clear lungs. Assessment & Plan - Diagnosis (1) Chest pain Qualifiers: Chest pain type: unspecified Qualified Code(s): R07.9 - Chest pain, unspecified Is this a current diagnosis for this admission?: Yes Plan: The patient was recently admitted for chest pain rule out last month; stress test at that time was indeterminate and with a fixed defect. Echocardiogram was reassuring with normal ejection fraction and mild diastolic dysfunction only. She is continued to have chest pain symptoms since time of her discharge and so has been arranged by her outpatient welding process specialist, Dr. Huggins, to have a cardiac catheterization at [facility] scheduled for 03/21/18. EKGs this admission have demonstrated a sinus rhythm with probable LVH, and inverted T waves toAVL, and V1 through V3. Repeat EKGs are unchanged. Serial troponins are negative x5. ProBNP 153. Cardiology has been consulted; spoke with Dr. Huggins today. He recommends initiating long-acting nitrate. Patient is placed on Imdur 60 mg daily. Per his recommendations, will monitor overnight. He relates that her chest pain is chronic in nature and she will continue to have intermittent episodes of chest discomfort, hopefully alleviated by initiation of Imdur. Approved discharge to home with instructions to keep her appointment for her cardiac catheterization so long as the patient remains hemodynamically stable. Continue daily aspirin and statin therapy. Continue Ranexa, metoprolol, lisinopril, HCTZ. (2) Diabetes Qualifiers: Diabetes mellitus type: type 2 Diabetes mellitus halfway insulin use: with halfway use Is this a current diagnosis for this admission?: Yes Plan: The patient is placed on a consistent carb diet. Continue Lantus 75 units nightly. Patient utilizes Humalog 15 units with meals and sliding scale coverage. Registered dietitian has been consulted. (3) Dyslipidemia Is this a current diagnosis for this admission?: Yes Plan: Cardiac diet, atorvastatin 80 mg daily. (4) GERD (gastroesophageal reflux disease) Is this a current diagnosis for this admission?: Yes Plan: Continue Prevacid. (5) Hypertension Qualifiers: Hypertension type: essential hypertension Qualified Code(s): I10 - Essential (primary) hypertension Is this a current diagnosis for this admission?: Yes Plan: Medication regiment as above. Cardiac diet. (6) Obesity Is this a current diagnosis for this admission?: Yes Plan: Dietary discretion is advised. Registered dietitian has been consulted. - Time Time Spent with patient: 15-24 minutes Medications reviewed and adjusted accordingly: Yes Anticipated discharge: Home Within: within 24 hours
[2018-03-18] MEDS ORDERED: CLOPIDOGREL BISULFATE 300 MG TABLET PO SCH (11:15)
[2018-03-18] MEDS: ISOSORBIDE MONONITRATE 60 MG TAB.ER.24H PO SCH (12:33)
[2018-03-18] MEDS: CLOPIDOGREL BISULFATE 75 MG TABLET PO SCH (12:34)
[2018-03-18] MEDS: LISINOPRIL 5 MG TABLET PO SCH (12:34)
[2018-03-18] MEDS ORDERED: LORAZEPAM 1 MG TABLET ONE (15:46)
[2018-03-18] MEDS: INSULIN LISPRO 100 UNIT/ML 3 ML VIAL SUBCUT PRN (17:13)
[2018-03-18] MEDS ORDERED: ONDANSETRON HCL INJ/PF 4 MG/2 ML SDV IV ONE (18:00)
[2018-03-18] MEDS ORDERED: PROMETHAZINE HCL INJ 25 MG/1 ML VIAL ONE (18:37)
[2018-03-18] MEDS ORDERED: PROMETHAZINE HCL INJ 25 MG/1 ML VIAL IV ONE (18:45)
[2018-03-18] MEDS: INSULIN GLARGINE,HUM.REC.ANLOG 300 UNIT/3 ML INSULN.PEN SUBCUT SCH (21:33)
[2018-03-18] MEDS: ATORVASTATIN CALCIUM 80 MG TABLET PO SCH (21:37)
[2018-03-18] MEDS: MONTELUKAST SODIUM 10 MG TABLET PO SCH (21:37)
[2018-03-19] MEDS: SUCRALFATE SUSP 1 GM/10 ML UDCUP PO SCH ×4 (06:51→23:56)
[2018-03-19] MEDS: LANSOPRAZOLE 30 MG TAB.RAP.DR PO SCH ×2 (06:52→17:27)
[2018-03-19] MEDS: ONDANSETRON HCL INJ/PF 4 MG/2 ML SDV IV PRN ×3 (08:00→23:36)
[2018-03-19] MEDS: ACETAMINOPHEN 325 MG TABLET PO PRN ×3 (08:00→23:35)
[2018-03-19] MEDS: INSULIN LISPRO 100 UNIT/ML 3 ML VIAL SUBCUT SCH ×3 (08:01→17:29)
[2018-03-19] MEDS: MORPHINE SULFATE 10 MG/ML INJ IV PRN ×2 (08:03→20:55)
[2018-03-19] MEDS: MAG HYDROX/AL HYDROX/SIMETH SUSP 30 ML UDCUP PO PRN (08:20)
[2018-03-19] MEDS: MULTIVITAMIN TABLET PO SCH (10:40)
[2018-03-19] MEDS: CLOPIDOGREL BISULFATE 75 MG TABLET PO SCH (10:40)
[2018-03-19] MEDS: CETIRIZINE 10 MG TABLET PO SCH (10:40)
[2018-03-19] MEDS: ASPIRIN 81 MG TABLET, CHEWABLE PO SCH (10:40)
[2018-03-19] MEDS: DOCUSATE SODIUM 100 MG CAPSULE PO SCH ×2 (10:40→17:27)
[2018-03-19] MEDS: RANOLAZINE 500 MG TAB.SR.12H PO SCH ×2 (10:41→22:47)
[2018-03-19] MEDS: METOPROLOL SUCCINATE 25 MG TAB.SR.24H PO SCH ×4 (10:44→22:02)
[2018-03-19] MEDS: ISOSORBIDE MONONITRATE 60 MG TAB.ER.24H PO SCH (10:45)
[2018-03-19] MEDS: HYDROCHLOROTHIAZIDE 12.5 MG TABLET PO SCH (10:45)
[2018-03-19] MEDS: LISINOPRIL 5 MG TABLET PO SCH (10:46)
--- NOTE | 2018-03-19 10:51 | EKG REPORT ---
SEVERITY:- ABNORMAL ECG - SINUS RHYTHM PROBABLE LEFT VENTRICULAR HYPERTROPHY ANTERIOR Q WAVES, POSSIBLY DUE TO LVH : Confirmed by: Yaneth Huggins 19-Mar-2018 10:50:30
--- NOTE | 2018-03-19 10:53 | EKG REPORT ---
SEVERITY:- ABNORMAL ECG - SINUS RHYTHM LEFT VENTRICULAR HYPERTROPHY ANTERIOR Q WAVES, POSSIBLY DUE TO LVH VS ISCHEMIA : Confirmed by: Yaneth Huggins 19-Mar-2018 10:51:15
--- NOTE | 2018-03-19 12:44 | PDOC PROGRESS REPORT ---
Subjective Progress Note for:: 03/19/18 Subjective:: Patient seems to be doing better, however still having some chest pain, abdominal pain, dizziness, headaches and foot pain. Patient actually has multiple complaints. Patient denies however having any anxiety, panic or depression. Patient denying any PND, orthopnea. Patient denied any sustained palpitations, dizziness, syncope, near syncope. Patient denying any fever chills. Patient denying any other significant discomfort. Patient is maintaining sinus rhythm. Review of systems: Rest review of systems negative. Medications: Medications have been reviewed. Reason For Visit: CHEST PAIN Physical Exam Vital Signs: Temp Pulse Resp BP Pulse Ox 97.4 F 71 17 110/59 L 100 03/19/18 11:40 03/19/18 11:40 03/19/18 11:40 03/19/18 11:40 03/19/18 11:40 Intake & Output 03/18/18 03/19/18 03/20/18 06:59 06:59 06:59 Intake Total 1020 840 Output Total 550 Balance 470 840 Weight 110.2 kg 110.8 kg Exam: GENERAL: well-nourished and in no acute distress. Alert and oriented x3 HEAD: Atraumatic, normocephalic. EYES: VICENTE, sclera anicteric, conjunctiva are normal. ENT: Moist mucous membranes. No oral ulcerations or bleeding gums noted. No obvious ear, nose or throat abnormalities noted. NECK: supple without lymphadenopathy. Trachea is central. No cervical or axillary lymphadenopathy noted. Carotids are 2+, JVD WNL LUNGS: Breath sounds clear bilaterally. No wheezes rales or rhonchi noted. No significant dullness noted on percussion. CHEST: Palpation of the chest wall shows mild chest wall tenderness. HEART: [employer], No PSH, 1/6 WYATT aortic area, 1/6 garcia systolic murmur mitral area, no rubs, no gallops. ABDOMEN: Soft, mild right upper quadrant tenderness appreciated, normoactive bowel sounds. No guarding, no rebound. No rigidity noted . No masses appreciated. EXTREMITIES: Pedal pulses are 1-2+, no calf tenderness noted. No clubbing or cyanosis. negative pedal edema noted NEUROLOGICAL: Focused neurological exam showed no significant neurologic deficit. Normal speech, no focal weakness appreciated. PSYCH: Normal mood, normal affect. Judgment and insight within normal limits. SKIN: No significant ecchymosis, skin is noted to be warm. MUSCULOSKELETAL EXAM: No significant acute joint swelling noted. Results Laboratory Results: 03/18/18 05:29 03/18/18 09:34 03/17/18 03/17/18 03/17/18 12:07 16:10 22:10 Creatine Kinase CK-MB (CK-2) 0.32 0.26 0.41 Troponin I < 0.012 < 0.012 < 0.012 NT-Pro-B Natriuret Pep 03/18/18 03/18/18 03/18/18 05:29 07:30 07:30 Creatine Kinase Cancelled Cancelled CK-MB (CK-2) Troponin I NT-Pro-B Natriuret Pep Cancelled 03/18/18 03/18/18 09:34 09:34 Creatine Kinase 51 CK-MB (CK-2) Troponin I NT-Pro-B Natriuret Pep 153 EKG Comments: Sinus rhythm, no significant cardiac dysrhythmia noted. Impressions: Chest X-Ray 03/17/18 00:58 IMPRESSION: Clear lungs. Assessment & Plan - Diagnosis (1) Chest pain Qualifiers: Chest pain type: unspecified Qualified Code(s): R07.9 - Chest pain, unspecified Is this a current diagnosis for this admission?: Yes (2) Diabetes Qualifiers: Diabetes mellitus type: type 2 Diabetes mellitus retirement insulin use: with retirement use Is this a current diagnosis for this admission?: Yes (3) Dyslipidemia Is this a current diagnosis for this admission?: Yes (4) GERD (gastroesophageal reflux disease) Qualifiers: Esophagitis presence: esophagitis presence not specified Qualified Code(s) : K21.9 - Gastro-esophageal reflux disease without esophagitis Is this a current diagnosis for this admission?: Yes (5) Hypertension Qualifiers: Hypertension type: essential hypertension Qualified Code(s): I10 - Essential (primary) hypertension Is this a current diagnosis for this admission?: Yes (6) Obesity Qualifiers: Obesity classification: adult class 2 (BMI 35 - 39.9) Is this a current diagnosis for this admission?: Yes (7) Sleep-disordered breathing Is this a current diagnosis for this admission?: Yes - Notes Notes: Patient has chest pain but so far cardiac enzymes and EKGs have been relatively unremarkable. At this point will evaluate patient for other causes of chest pain such as distal esophagitis, gallbladder colic, anxiety panic disorders etc although patient declines. Diabetes being well managed by the hospitalist. Gastroesophageal reflux: Patient gives history of this. Currently on double dose proton pump inhibitor. Continue with it. Have added aluminium hydroxide to the regimen in case patient has biliary reflux. Patient is noted to have some epigastric and left right upper quadrant tenderness. Patient also scheduled for an ultrasound of the abdomen. Patient has been encouraged to take small meals. Patient does have had been diagnosed to have sleep apnea and is scheduled for a titration study as an outpatient. Patient encouraged to lose weight. Please see handwritten orders for further details. - Time Time with patient: Greater than 35 minutes - More than 50% of the time spent coordinating care, discussing management plans with involved caregivers. Management plans discussed with involved personnels. Medical decision making was of moderate to high complexity, patient's has multiple comorbidities. Medications reviewed and adjusted accordingly: Yes
--- NOTE | 2018-03-19 15:45 | PDOC PROGRESS REPORT ---
Subjective Progress Note for:: 03/19/18 Subjective:: The patient is a 53-year-old female with a past medical history of obesity, gastritis, hiatal hernia, hypertension, dyslipidemia, diabetes, and tobacco dependence with continuous use who was admitted 03/17/18 for chest pain. Patient is actually scheduled for cardiac catheterization at [facility] 03/21/18. Patient was seen on morning rounds. She was found resting in bed comfortably on room air; she was sleeping but woke easily when I set her name. She reports continued intermittent chest pain that is difficult for her to describe, nonradiating, occasionally associated with shortness of breath. No known alleviating or aggravating factors. She also endorses right upper quadrant and epigastric pain today described as burning associated with erucation. She denies nausea and vomiting. She denies fever, chills, headache, dizziness, palpitations, with apnea, cough, nausea, vomiting and diarrhea. She has no other questions or concerns at this time. No concerns per nursing. Reason For Visit: CHEST PAIN Physical Exam Vital Signs: Temp Pulse Resp BP Pulse Ox 97.4 F 71 17 110/59 L 100 03/19/18 11:40 03/19/18 11:40 03/19/18 11:40 03/19/18 11:40 03/19/18 11:40 Intake & Output 03/18/18 03/19/18 03/20/18 06:59 06:59 06:59 Intake Total 1020 840 Output Total 550 Balance 470 840 Weight 110.2 kg 110.8 kg General appearance: PRESENT: no acute distress, morbidly obese, well-developed, well-nourished Head exam: PRESENT: atraumatic, normocephalic Eye exam: PRESENT: conjunctiva pink, EOMI, PERRLA. ABSENT: scleral icterus Ear exam: PRESENT: normal external ear exam Mouth exam: PRESENT: moist, tongue midline Neck exam: ABSENT: carotid bruit, JVD, lymphadenopathy, thyromegaly Respiratory exam: PRESENT: clear to auscultation dewayne, decreased breath sounds - Bibasilar; secondary to body habitus and poor respiratory effort, symmetrical, unlabored. ABSENT: rales, rhonchi, wheezes Cardiovascular exam: PRESENT: RRR, +S1, +S2. ABSENT: diastolic murmur, rubs, systolic murmur Pulses: PRESENT: normal dorsalis pedis pul Vascular exam: PRESENT: normal capillary refill GI/Abdominal exam: PRESENT: normal bowel sounds, soft, tenderness - RUQ, epigastric pain. ABSENT: distended, guarding, mass, organolmegaly, rebound Rectal exam: PRESENT: deferred Extremities exam: PRESENT: full ROM. ABSENT: calf tenderness, clubbing, pedal edema Neurological exam: PRESENT: alert, awake, oriented to person, oriented to place , oriented to time, oriented to situation, CN II-XII grossly intact. ABSENT: motor sensory deficit Psychiatric exam: PRESENT: anxious, appropriate affect, normal mood. ABSENT: homicidal ideation, suicidal ideation Skin exam: PRESENT: dry, intact, warm. ABSENT: cyanosis, rash Results Laboratory Results: 03/18/18 05:29 03/18/18 09:34 03/17/18 03/17/18 03/17/18 12:07 16:10 22:10 Creatine Kinase CK-MB (CK-2) 0.32 0.26 0.41 Troponin I < 0.012 < 0.012 < 0.012 NT-Pro-B Natriuret Pep 03/18/18 03/18/18 03/18/18 05:29 07:30 07:30 Creatine Kinase Cancelled Cancelled CK-MB (CK-2) Troponin I NT-Pro-B Natriuret Pep Cancelled 03/18/18 03/18/18 09:34 09:34 Creatine Kinase 51 CK-MB (CK-2) Troponin I NT-Pro-B Natriuret Pep 153 Impressions: Chest X-Ray 03/17/18 00:58 IMPRESSION: Clear lungs. Assessment & Plan - Diagnosis (1) Chest pain Qualifiers: Chest pain type: unspecified Qualified Code(s): R07.9 - Chest pain, unspecified Is this a current diagnosis for this admission?: Yes Plan: Continues to have intermittent chest pain. The patient was recently admitted for chest pain rule out last month; stress test at that time was indeterminate and with a fixed defect. Echocardiogram was reassuring with normal ejection fraction and mild diastolic dysfunction only. She is continued to have chest pain symptoms since time of her discharge and so has been arranged by her outpatient rn clinical research, Dr. Huggins, to have a cardiac catheterization at [facility] scheduled for 03/21/18. EKGs this admission have demonstrated a sinus rhythm with probable LVH, and inverted T waves toAVL, and V1 through V3. Repeat EKGs are unchanged. Serial troponins are negative x5. ProBNP 153. Cardiology has been consulted; spoke with Dr. Huggins again today. Plans to evaluate ABD U/S for GI causes of discomfort. Continue Imdur 60 mg daily. Continue daily aspirin and statin therapy. Continue Ranexa, metoprolol, lisinopril, HCTZ. (2) Diabetes Qualifiers: Diabetes mellitus type: type 2 Diabetes mellitus usp insulin use: with terminal operator use Is this a current diagnosis for this admission?: Yes Plan: The patient is placed on a consistent carb diet. Continue Lantus 75 units nightly. Patient utilizes Humalog 15 units with meals and sliding scale coverage. Registered dietitian has been consulted. (3) Dyslipidemia Is this a current diagnosis for this admission?: Yes Plan: Cardiac diet, atorvastatin 80 mg daily. (4) GERD (gastroesophageal reflux disease) Qualifiers: Esophagitis presence: esophagitis presence not specified Qualified Code(s) : K21.9 - Gastro-esophageal reflux disease without esophagitis Is this a current diagnosis for this admission?: Yes Plan: Continue Prevacid. Scheduled Aluminum hydroxide. Continued Carafate every 6 hours. (5) Hypertension Qualifiers: Hypertension type: essential hypertension Qualified Code(s): I10 - Essential (primary) hypertension Is this a current diagnosis for this admission?: Yes Plan: Medication regiment as above. Cardiac diet. (6) Obesity Qualifiers: Obesity classification: adult class 2 (BMI 35 - 39.9) Is this a current diagnosis for this admission?: Yes Plan: Dietary discretion is advised. Registered dietitian has been consulted. (7) Epigastric abdominal pain Is this a current diagnosis for this admission?: Yes Plan: Lipase, amylase, and LFTs are pending. Abdominal U/S pending. Treatment for GERD as above. - Time Time Spent with patient: 15-24 minutes Medications reviewed and adjusted accordingly: Yes Anticipated discharge: Home - vs. transfer to [facility] for scheduled cardiac cath Within: within 48 hours
[2018-03-19 16:16] LABS: ALANINE AMINOTRANSFERASE 23 U/L (9-52); ALBUMIN 3.6 g/dL (3.5-5.0); ALKALINE PHOSPHATASE 76 U/L (38-126); AMYLASE 44 U/L (30-110); ASPARTATE AMINO TRANSFERASE 12 U/L (14-36); BILIRUBIN,DIRECT 0.2 mg/dL (0.0-0.4); BILIRUBIN,TOTAL 0.2 mg/dL (0.2-1.3); LIPASE 200.9 U/L (23-300); TOTAL PROTEIN 6.5 g/dL (6.3-8.2)
[2018-03-19] MEDS: ALUMINUM HYDROXIDE PO SCH ×2 (17:27→23:56)
[2018-03-19] MEDS: METOCLOPRAMIDE HCL 10 MG TABLET PO SCH (17:29)
[2018-03-19] MEDS: INSULIN LISPRO 100 UNIT/ML 3 ML VIAL SUBCUT PRN (17:30)
--- NOTE | 2018-03-19 22:21 | EKG REPORT ---
SEVERITY:- ABNORMAL ECG - SINUS RHYTHM LEFT VENTRICULAR HYPERTROPHY ANTERIOR Q WAVES, POSSIBLY DUE TO LVH : Confirmed by: Yaneth Huggins 19-Mar-2018 22:20:01
[2018-03-19] MEDS: MONTELUKAST SODIUM 10 MG TABLET PO SCH (22:47)
[2018-03-19] MEDS: ATORVASTATIN CALCIUM 80 MG TABLET PO SCH (22:47)
[2018-03-19] MEDS: INSULIN GLARGINE,HUM.REC.ANLOG 300 UNIT/3 ML INSULN.PEN SUBCUT SCH (22:48)
--- NOTE | 2018-03-20 06:43 | RADIOLOGY REPORT (SQ) ---
EXAM DESCRIPTION: US ABDOMEN COMPLETED DATE/TME: 03/20/2018 12:58 CLINICAL HISTORY: 53 years Female, Ultrasound of gallbladder evaluate for gallstones- Comparison: CT, February 16, 2018. LIMITATIONS: Bowel gas and body habitus artifact. FINDINGS: Gallbladder, negative sonographic Bond's test, mild hepatic steatosis, a 0.3-cm diameter common bile duct, no intrahepatic ductal dilation, obscured hepatic veins, 12.6-cm right kidney with 2.1 cm likely benign cyst not definitively characterized, partially obscured left kidney, pancreas, spleen, visualized vasculature/abdominal aorta, and no significant ascites appear otherwise unremarkable. IMPRESSION: No acute findings. Mild hepatic steatosis. Limitation includes partially obscured left kidney.
[2018-03-20] MEDS: ALUMINUM HYDROXIDE PO SCH ×2 (06:46→13:14)
[2018-03-20] MEDS: SUCRALFATE SUSP 1 GM/10 ML UDCUP PO SCH ×4 (06:51→23:49)
[2018-03-20] MEDS: LANSOPRAZOLE 30 MG TAB.RAP.DR PO SCH ×2 (06:51→17:07)
[2018-03-20] MEDS: ONDANSETRON HCL INJ/PF 4 MG/2 ML SDV IV PRN (06:51)
[2018-03-20] MEDS: METOPROLOL SUCCINATE 25 MG TAB.SR.24H PO SCH ×3 (06:51→22:42)
[2018-03-20] MEDS: CLOPIDOGREL BISULFATE 75 MG TABLET PO SCH (09:36)
[2018-03-20] MEDS: LISINOPRIL 5 MG TABLET PO SCH (09:37)
[2018-03-20] MEDS: MULTIVITAMIN TABLET PO SCH (09:37)
[2018-03-20] MEDS: ASPIRIN 81 MG TABLET, CHEWABLE PO SCH (09:37)
[2018-03-20] MEDS: INSULIN LISPRO 100 UNIT/ML 3 ML VIAL SUBCUT SCH ×3 (09:42→17:07)
[2018-03-20] MEDS: METOCLOPRAMIDE HCL 10 MG TABLET PO SCH ×2 (09:44→13:15)
[2018-03-20] MEDS: RANOLAZINE 500 MG TAB.SR.12H PO SCH ×2 (09:46→22:31)
[2018-03-20] MEDS: HYDROCHLOROTHIAZIDE 12.5 MG TABLET PO SCH (09:46)
[2018-03-20] MEDS: CETIRIZINE 10 MG TABLET PO SCH (09:46)
[2018-03-20] MEDS: ISOSORBIDE MONONITRATE 60 MG TAB.ER.24H PO SCH (09:48)
[2018-03-20] MEDS: DOCUSATE SODIUM 100 MG CAPSULE PO SCH ×2 (09:48→17:07)
--- NOTE | 2018-03-20 10:44 | PDOC PROGRESS REPORT ---
Subjective Progress Note for:: 03/20/18 Subjective:: Patient seems to be doing better, however still having some chest pain however significantly improved. Patient wishes to be transferred to [facility] Patient denying any PND, orthopnea. Patient denied any sustained palpitations, dizziness, syncope, near syncope. Patient denying any fever chills. Patient denying any other significant discomfort. Patient is maintaining sinus rhythm. Review of systems: Rest review of systems negative. Medications: Medications have been reviewed. Reason For Visit: CHEST PAIN Physical Exam Vital Signs: Temp Pulse Resp BP Pulse Ox 98.0 F 76 16 109/69 98 03/20/18 07:37 03/20/18 07:37 03/20/18 07:37 03/20/18 07:37 03/20/18 07:37 Intake & Output 03/19/18 03/20/18 03/21/18 06:59 06:59 06:59 Intake Total 840 1000 Balance 840 1000 Weight 110.8 kg 110.1 kg Exam: GENERAL: well-nourished and in no acute distress. Alert and oriented x3 HEAD: Atraumatic, normocephalic. EYES: VICENTE, sclera anicteric, conjunctiva are normal. ENT: Moist mucous membranes. No oral ulcerations or bleeding gums noted. No obvious ear, nose or throat abnormalities noted. NECK: supple without lymphadenopathy. Trachea is central. No cervical or axillary lymphadenopathy noted. Carotids are 2+, JVD WNL LUNGS: Breath sounds clear bilaterally. No wheezes rales or rhonchi noted. No significant dullness noted on percussion. CHEST: Palpation of the chest wall shows no significant chest wall tenderness. 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 ABDOMEN: Soft, no significant tenderness appreciated, normoactive bowel sounds. No guarding, no rebound. No rigidity noted . No masses appreciated. EXTREMITIES: Pedal pulses are 1-2+, no calf tenderness noted. No clubbing or cyanosis. negative pedal edema noted NEUROLOGICAL: Focused neurological exam showed no significant neurologic deficit. Normal speech, no focal weakness appreciated. PSYCH: Normal mood, normal affect. Judgment and insight within normal limits. SKIN: No significant ecchymosis, skin is noted to be warm. MUSCULOSKELETAL EXAM: No significant acute joint swelling noted. Results Laboratory Results: 03/18/18 05:29 03/18/18 09:34 03/19/18 15:48 Total Bilirubin 0.2 AST 12 L ALT 23 Alkaline Phosphatase 76 Total Protein 6.5 Albumin 3.6 Amylase 44 Lipase 200.9 03/17/18 03/17/18 03/17/18 12:07 16:10 22:10 Creatine Kinase CK-MB (CK-2) 0.32 0.26 0.41 Troponin I < 0.012 < 0.012 < 0.012 NT-Pro-B Natriuret Pep 03/18/18 03/18/18 03/18/18 05:29 07:30 07:30 Creatine Kinase Cancelled Cancelled CK-MB (CK-2) Troponin I NT-Pro-B Natriuret Pep Cancelled 03/18/18 03/18/18 09:34 09:34 Creatine Kinase 51 CK-MB (CK-2) Troponin I NT-Pro-B Natriuret Pep 153 EKG Comments: Telemetry shows sinus rhythm without any sustained tachycardia or bradycardia. Impressions: Chest X-Ray 03/17/18 00:58 IMPRESSION: Clear lungs. Abdomen Ultrasound 03/20/18 12:58 IMPRESSION: No acute findings. Mild hepatic steatosis. Limitation includes partially obscured left kidney. Assessment & Plan - Diagnosis (1) Chest pain Qualifiers: Chest pain type: unspecified Qualified Code(s): R07.9 - Chest pain, unspecified Is this a current diagnosis for this admission?: Yes (2) Diabetes Qualifiers: Diabetes mellitus type: type 2 Diabetes mellitus jail insulin use: with jail use Is this a current diagnosis for this admission?: Yes (3) Dyslipidemia Is this a current diagnosis for this admission?: Yes (4) GERD (gastroesophageal reflux disease) Qualifiers: Esophagitis presence: esophagitis presence not specified Qualified Code(s) : K21.9 - Gastro-esophageal reflux disease without esophagitis Is this a current diagnosis for this admission?: Yes (5) Hypertension Qualifiers: Hypertension type: essential hypertension Qualified Code(s): I10 - Essential (primary) hypertension Is this a current diagnosis for this admission?: Yes (6) Obesity Qualifiers: Obesity classification: adult class 2 (BMI 35 - 39.9) Is this a current diagnosis for this admission?: Yes (7) Sleep-disordered breathing Is this a current diagnosis for this admission?: Yes (8) Hepatic steatosis Is this a current diagnosis for this admission?: Yes - Notes Notes: Patient has significantly improved chest pain but prefers to be transferred for heart cath at [facility] and this is being arranged. I have initiated a call to cardiac connection. They have an accepting physician, Dr. Barfield. As regards patient's other diagnosis the under reasonable control. Patient is noted to have hepatic steatosis. This is a complication of obesity as well as sleep apnea syndrome. Patient did get tested for sleep apnea syndrome and had a positive PSG and is awaiting to have a titration study which is scheduled as an outpatient. Patient encouraged in healthy lifestyle, weight loss, small minute and regular walking program. Patient medical regimen reviewed. It is quite complex but needed at this point. Discussed with hospitalist taking care of the patient [id number] Ms. Cinthia Mccann. - Time Time with patient: Greater than 35 minutes - CODE STATUS was discussed, patient remains full code. Surrogate decision-maker unchanged. Multiple medical problems were addressed. More than 50% of the time spent coordinating care, discussing management plans with involved caregivers. Management plans discussed with involved personnels. Medical decision making was of moderate to high complexity, patient's has multiple comorbidities. Medications reviewed and adjusted accordingly: Yes
--- NOTE | 2018-03-20 13:00 | PDOC TRANSFER SUMMARY ---
General Admission Date/PCP: 03/17/18 06:10 MARA CARBAJAL MD Admission Date: 03/17/18 Transfer Date: 03/20/18 Accepting Facility: [facility] Accepting Physician: Dr. Barfield, cardiology Resuscitation Status: Full Code - Transfer Diagnosis (1) Chest pain Is this a current diagnosis for this admission?: Yes Diagnosis Summary: Continues to have intermittent chest pain. The patient was recently admitted for chest pain rule out last month; stress test at that time was indeterminate and with a fixed defect. Echocardiogram was reassuring with normal ejection fraction and mild diastolic dysfunction only. She is scheduled to have a cardiac catheterization at [facility] scheduled for 03/21/18. EKGs this admission have demonstrated a sinus rhythm with probable LVH, and inverted T waves to AVL, and V1 through V3. Repeat EKGs are unchanged. Serial troponins are negative x5. ProBNP 153. Amylase, lipase, and abdominal u/s to evaluate for non-cardiac causes of discomfort are all benign. Cardiology has been consulted; Dr. Huggins has arranged for the patient to be transferred to [facility] today in anticipation of her previously scheduled cardiac cath tomorrow. Continue daily aspirin and statin therapy. Continue Imdur, Ranexa, metoprolol, lisinopril, HCTZ. (2) Diabetes Is this a current diagnosis for this admission?: Yes Diagnosis Summary: Dietary discretion is encouraged; have discussed with the patient the importance of weight reduction and utilizing a consistent carb and cardiac diet. The patient is placed on a consistent carb diet. Continue Lantus 75 units nightly. Patient utilizes Humalog 15 units with meals and sliding scale coverage. (3) Dyslipidemia Is this a current diagnosis for this admission?: Yes Diagnosis Summary: Cardiac diet, atorvastatin 80 mg daily. (4) GERD (gastroesophageal reflux disease) Is this a current diagnosis for this admission?: Yes Diagnosis Summary: Continue Prevacid. Scheduled Aluminum hydroxide and carafate. May benefit from outpatient GI follow up. (5) Hypertension Is this a current diagnosis for this admission?: Yes Diagnosis Summary: Medication regiment as above. Cardiac diet. (6) Obesity Is this a current diagnosis for this admission?: Yes Diagnosis Summary: Dietary discretion is advised. (7) Epigastric abdominal pain Is this a current diagnosis for this admission?: Yes Diagnosis Summary: Lipase, amylase, and LFTs are pending. Abdominal U/S demonstrated mild hepatic steatosis but no acute findings. Study was limited secondary to body habitus. Treatment for GERD as above. - Transfer Medications Home Medications: Atorvastatin Calcium [Lipitor 80 mg Tablet] 80 mg PO QHS 02/15/18 Cetirizine HCl [Zyrtec 10 mg Tablet] 10 mg PO DAILY 02/15/18 Insulin Glargine,Hum.rec.anlog [Basaglar Kwikpen U-100] 75 unit SQ QHS 02/15/18 Insulin Lispro [Admelog Solostar] 15 unit SQ MEALS 02/15/18 Lisinopril [Prinivil] 20 mg PO DAILY 02/15/18 Metformin HCl [Metformin HCl ER] 1,000 mg PO BIDBS 02/15/18 Montelukast Sodium [Singulair 10 mg Tablet] 10 mg PO QHS 02/15/18 Mv-Min/Iron/Folic/Calcium/Vitk [One-A-Day Women's Tablet] 1 each PO DAILY Omeprazole 40 mg PO ACBRKFST 02/15/18 Nitroglycerin [Nitrostat 0.4 mg (1/150 Gr) Tabs 25/Bottle] 1 tab SL Q5MP PRN 10/26 Ranolazine [Ranexa 500 mg Tab.sr] 500 mg PO Q12 03/17/18 Transfer Medications: Current Medications Acetaminophen (Tylenol 325 Mg Tablet) 650 mg PO Q6HP PRN PRN Reason: PAIN Stop: 04/16/18 10:08 Last Admin: 03/19/18 23:35 Dose: 650 mg Al Hydrox/Mg Hydrox/Simethicone (Maalox Plus Susp 30 Udcup) 30 ml PO Q4HP PRN PRN Reason: HEARTBURN Stop: 04/16/18 03:04 Last Admin: 03/19/18 08:20 Dose: 30 ml Aluminum Hydroxide (Amphogel Susp 1920 Mg/30 Ml Udcup) 30 ml PO Q6 MANUEL Stop: 03/20/18 17:59 Last Admin: 03/20/18 06:46 Dose: 30 ml Aspirin (Aspirin 81 Mg Chewable Tablet) 81 mg PO DAILY MANUEL Stop: 04/16/18 09:59 Last Admin: 03/20/18 09:37 Dose: 81 mg Atorvastatin Calcium (Lipitor 80 Mg Tablet) 80 mg PO QHS MANUEL Stop: 04/16/18 21:59 Last Admin: 03/19/18 22:47 Dose: 80 mg Cetirizine HCl (Zyrtec 10 Mg Tablet) 10 mg PO DAILY [facility] Stop: 04/16/18 09:59 Last Admin: 03/20/18 09:46 Dose: 10 mg Clopidogrel Bisulfate (Plavix 75 Mg Tablet) 75 mg PO DAILY [facility] Stop: 04/17/18 11:59 Last Admin: 03/20/18 09:36 Dose: 75 mg Dextrose (Dextrose Inj 50% Syringe (25 Gm/50 Ml)) 12.5 gm IV PRN PRN; Protocol PRN Reason: FOR BG 50-69 IN ALERT PATIENT Stop: 04/16/18 03:04 Dextrose (Dextrose Inj 50% Syringe (25 Gm/50 Ml)) 25 gm IV PRN PRN; Protocol PRN Reason: PER PROTOCOL Stop: 04/16/18 03:04 Docusate Sodium (Colace 100 Mg Capsule) 100 mg PO BID [facility] Stop: 04/16/18 09:59 Last Admin: 03/20/18 09:48 Dose: 100 mg Glucagon (Glucagen Inj 1 Mg Vial) 1 mg IM PRN PRN; Protocol PRN Reason: Evaluate for BG < 70 Stop: 04/16/18 03:04 Glucose (Glutose 40% Gel 15 Gm Tube) 15 gm PO PRN PRN; Protocol PRN Reason: FOR BG 50-69 IN ALERT PATIENT Stop: 04/16/18 03:04 Glucose (Glutose 40% Gel 15 Gm Tube) 30 gm PO PRN PRN; Protocol PRN Reason: FOR BG < 50 IN ALERT PATIENT Stop: 04/16/18 03:04 Hydrochlorothiazide (Hydrodiuril 12.5 Mg Tablet) 12.5 mg PO DAILY [facility] Stop: 04/16/18 09:59 Last Admin: 03/20/18 09:46 Dose: 12.5 mg Insulin Glargine (Lantus Insulin Inj 300 Unit/3 Ml Pen) 75 unit SUBCUT QHS [facility] Stop: 04/16/18 21:59 Last Admin: 03/19/18 22:48 Dose: 75 units Insulin Human Lispro (Humalog Insulin 100 Unit/1 Ml 3 Ml Vial) 0 - 12 unit SUBCUT ACP PRN; Protocol PRN Reason: PER PROTOCOL Stop: 04/16/18 03:04 Last Admin: 03/19/18 17:30 Dose: 2 unit Insulin Human Lispro (Humalog Insulin 100 Unit/1 Ml 3 Ml Vial) 15 unit SUBCUT MEALS [facility] Stop: 04/17/18 08:14 Last Admin: 03/20/18 09:42 Dose: 15 unit Isosorbide Mononitrate (Imdur 60 Mg Tablet.Er) 60 mg PO DAILY [facility] Stop: 04/17/18 11:59 Last Admin: 03/20/18 09:48 Dose: 60 mg Lansoprazole (Prevacid 30 Mg Odt Tablet) 30 mg PO BID@0600,1700 [facility] Stop: 04/17/18 16:59 Last Admin: 03/20/18 06:51 Dose: 30 mg Lisinopril (Prinivil 5 Mg Tablet) 5 mg PO DAILY [facility] Stop: 04/17/18 11:29 Last Admin: 03/20/18 09:37 Dose: 5 mg Metoclopramide HCl (Reglan 10 Mg Tablet) 5 mg PO AC [facility] Stop: 03/20/18 15:59 Last Admin: 03/20/18 09:44 Dose: 5 mg Metoprolol Succinate (Toprol Xl 25 Mg Tab.Sr) 25 mg PO Q8 [facility] Stop: 04/18/18 13:59 Last Admin: 03/20/18 06:51 Dose: 25 mg Montelukast Sodium (Singulair 10 Mg Tablet) 10 mg PO QHS [facility] Stop: 04/16/18 21:59 Last Admin: 03/19/18 22:47 Dose: 10 mg Morphine Sulfate (Morphine 10 Mg/Ml Inj) 2 mg IV Q4HP PRN PRN Reason: FOR CHEST PAIN Stop: 03/24/18 10:35 Last Admin: 03/19/18 20:55 Dose: 2 mg Multivitamins (Tab-A-Miroslava (Multiple Vitamin) Tablet) 1 tab PO DAILY [facility] Stop: 04/16/18 11:29 Last Admin: 03/20/18 09:37 Dose: 1 tab Nitroglycerin (Nitrostat 0.4 Mg (1/150 Gr) Tabs 25/Bottle) 1 tab SL Q5MP PRN PRN Reason: FOR CHEST PAIN Stop: 04/16/18 10:34 Last Admin: 03/18/18 07:52 Dose: 1 tab Ondansetron HCl (Zofran Inj/Pf 4 Mg/2 Ml Sdv) 4 mg IV Q6HP PRN PRN Reason: NAUSEA Stop: 04/16/18 09:21 Last Admin: 03/20/18 06:51 Dose: 4 mg Ranolazine (Ranexa 500 Mg Tab.Sr) 1,000 mg PO Q12 MANUEL Stop: 04/17/18 21:59 Last Admin: 03/20/18 09:46 Dose: 1,000 mg Sodium Chloride (Saline Flush 2.5 Ml Monoject Prefil Syrin) 2.5 ml IV Q8 MANUEL Stop: 04/16/18 05:59 Last Admin: 03/20/18 06:52 Dose: Not Given Sucralfate (Carafate Susp 1 Gm/10 Ml Udcup) 1 gm PO Q6 MANUEL Stop: 04/16/18 07:59 Last Admin: 03/20/18 06:51 Dose: 1 gm - Allergies Allergies/Adverse Reactions: No Known Allergies Allergy (Unverified 02/14/18 21:31) Hospital Course Hospital Course: H&P per Dr Tejada: TYRON SIMON is a 53 year old female with a past medical history of obesity, gastritis, hiatal hernia, hypertension, dyslipidemia, diabetes, tobacco dependence and a indeterminant Cardiolite stress test prompting scheduling of outpatient cardiac catheterization at [facility] 03/21/2018. Patient returns the emergency room with retrosternal chest pain radiating to the arms bilaterally associated with palpitations, nausea and burping. She is unable to identify alleviating or exacerbating factors. In the emergency room she has an unremarkable initial workup. Cardiology Dr. Huggins consulted by emergency room provider recommending chest pain observation with serial cardiac enzymes. Physical Exam Vital Signs: Temp Pulse Resp BP Pulse Ox 98.2 F 89 17 108/62 95 03/20/18 12:07 03/20/18 12:07 03/20/18 12:07 03/20/18 12:07 03/20/18 12:07 Intake & Output 03/19/18 03/20/18 03/21/18 06:59 06:59 06:59 Intake Total 840 1000 Balance 840 1000 Weight 110.8 kg 110.1 kg General appearance: PRESENT: no acute distress, morbidly obese, well-developed, well-nourished Head exam: PRESENT: atraumatic, normocephalic Eye exam: PRESENT: conjunctiva pink, EOMI, PERRLA. ABSENT: scleral icterus Ear exam: PRESENT: normal external ear exam Mouth exam: PRESENT: moist, tongue midline Neck exam: ABSENT: carotid bruit, JVD, lymphadenopathy, thyromegaly Respiratory exam: PRESENT: clear to auscultation dewayne, symmetrical, unlabored. ABSENT: rales, rhonchi, wheezes Cardiovascular exam: PRESENT: RRR, +S1, +S2. ABSENT: diastolic murmur, rubs, systolic murmur Pulses: PRESENT: normal dorsalis pedis pul Vascular exam: PRESENT: normal capillary refill GI/Abdominal exam: PRESENT: normal bowel sounds, soft. ABSENT: distended, guarding, mass, organolmegaly, rebound, tenderness Rectal exam: PRESENT: deferred Extremities exam: PRESENT: full ROM. ABSENT: calf tenderness, clubbing, pedal edema Neurological exam: PRESENT: alert, awake, oriented to person, oriented to place , oriented to time, oriented to situation, CN II-XII grossly intact. ABSENT: motor sensory deficit Psychiatric exam: PRESENT: anxious, appropriate affect, normal mood. ABSENT: homicidal ideation, suicidal ideation Skin exam: PRESENT: dry, intact, warm. ABSENT: cyanosis, rash Results Laboratory Results: 03/18/18 05:29 03/18/18 09:34 03/19/18 15:48 Total Bilirubin 0.2 AST 12 L ALT 23 Alkaline Phosphatase 76 Total Protein 6.5 Albumin 3.6 Amylase 44 Lipase 200.9 03/17/18 03/17/18 03/17/18 12:07 16:10 22:10 Creatine Kinase CK-MB (CK-2) 0.32 0.26 0.41 Troponin I < 0.012 < 0.012 < 0.012 NT-Pro-B Natriuret Pep 03/18/18 03/18/18 03/18/18 05:29 07:30 07:30 Creatine Kinase Cancelled Cancelled CK-MB (CK-2) Troponin I NT-Pro-B Natriuret Pep Cancelled 03/18/18 03/18/18 09:34 09:34 Creatine Kinase 51 CK-MB (CK-2) Troponin I NT-Pro-B Natriuret Pep 153 Impressions: Chest X-Ray 03/17/18 00:58 IMPRESSION: Clear lungs. Abdomen Ultrasound 03/20/18 12:58 IMPRESSION: No acute findings. Mild hepatic steatosis. Limitation includes partially obscured left kidney. Plan Discharge Plan: Transferred to [facility] under the care of Dr. Barfield for a scheduled Cardiac catheterization tomorrow. Time Spent: Less than 30 Minutes
[2018-03-20] MEDS: INSULIN LISPRO 100 UNIT/ML 3 ML VIAL SUBCUT PRN (13:12)
[2018-03-20] MEDS: ACETAMINOPHEN 325 MG TABLET PO PRN (15:40)
[2018-03-20] MEDS ORDERED: IBUPROFEN 800 MG TABLET PO PRN (17:04)
[2018-03-20] MEDS: ATORVASTATIN CALCIUM 80 MG TABLET PO SCH (22:31)
[2018-03-20] MEDS: MONTELUKAST SODIUM 10 MG TABLET PO SCH (22:32)
[2018-03-20] MEDS: INSULIN GLARGINE,HUM.REC.ANLOG 300 UNIT/3 ML INSULN.PEN SUBCUT SCH (22:32)
[2018-03-21 00:04] VITALS: BP 103/58
[2018-03-21] MEDS ORDERED: LACTULOSE SYRUP 20 GM/30 ML UDCUP PO ONE (01:45)
[2018-03-21] MEDS ORDERED: NA PHOS,M-B/NA PHOS,DI-BA (ADULT) 133 ML ENEMA PR ONE (02:00)
== END 2018-03-21 02:30 | disposition short-term general hospital (02) | DRG 313 ==
LOC: ER 00:46 → OBSVTOIN 06:10 → EH 06:10 → 4W 08:26
PROVIDERS: ADMIT Internal Medicine; ATTEND Internal Medicine
DX: R07.89 Other chest pain (principal); E11.9 Type 2 diabetes mellitus without complications; E78.00 Pure hypercholesterolemia, unspecified; K21.9 Gastro-esophageal reflux disease without esophagitis; I10 Essential (primary) hypertension; E66.01 Morbid (severe) obesity due to excess calories; F17.210 Nicotine dependence, cigarettes, uncomplicated; K76.0 Fatty (change of) liver, not elsewhere classified; I25.10 Atherosclerotic heart disease of native coronary artery without angina pectoris; Z68.34 Body mass index [BMI] 34.0-34.9, adult; Z79.4 Long term (current) use of insulin; Z79.899 Other long term (current) drug therapy; Z79.82 Long term (current) use of aspirin; Z82.49 Family history of ischemic heart disease and other diseases of the circulatory system
CPT/HCPCS: 36415; 71045; 76700; 80048; 80053; 80061; 80076; 82150; 82550; 82553; 82962; 83036; 83690; 83880; 84439; 84443; 84481; 84484; 85025; 85027; 85610; 93005; 93010; 99285; J1815; J2270; J2405; J2550; J3490

== ENCOUNTER → 2018-06-15 | Outpatient (CLI) | payer MEDICAID ==
--- NOTE | 2018-06-17 09:33 | XCELERA REPORT ---
[address] [address] Tel: [phone] Fax: [phone] Lower Extremity Arterial Evaluation Name: TYRON SMION Age: 53 yrs Gender: Female : 1965 Patient Status: Outpatient Patient Location: [facility] Study Date: 06/15/2018 02:55 PM Procedure: Ankle brachial indicies performed. Reason For Study: PVD Ordering Physician: BRODY JURADO Performed By: Leeann Crawley Right Side Arterial Evaluation ELIZA in Posterior Tibial:1.. . Multiphasic waveform. Left Side Arterial Evaluation ELIZA in Posterior Tibial:1.. Multiphasic waveform. Interpretation Summary Normal ELIZA's. Suggesting normal arterial system, within the limitations of this technique. : BRODY JURADO > Kristian Ragland
== END ==
LOC: SP 13:43
PROVIDERS: ATTEND Internal Medicine Cardiovascular Disease
DX: I73.9 Peripheral vascular disease, unspecified (principal)
CPT/HCPCS: 93922

== ENCOUNTER 2018-07-06 08:46 | Emergency (ER) | payer MEDICAID ==
[2018-07-06 08:52] VITALS: BP 154/94
[2018-07-06] MEDS ORDERED: POLYMYXIN B SULFATE/TMP OPH SOLN (10 ML/ER DISP) OD PRN (09:26)
--- NOTE | 2018-07-06 09:29 | ER Document Report ---
HPI - HPI Time Seen by Provider: 07/06/18 09:19 Pain Level: Denies Notes: Patient is a 53-year-old female who presents the emergency department with complaints of blood coming from her left ear. Patient reports that she woke up like this. Patient denies any complaints of ear pain prior to this occurrence. - CONSTITUTIONAL Constitutional: DENIES: Fever, Chills - REPRODUCTIVE Reproductive: DENIES: : Past Medical History - General Information source: Patient - Social History Smoking Status: Never Smoker Frequency of alcohol use: None Drug Abuse: None Family History: Hypertension - Negative for premature coronary artery disease or sudden cardiac in the family amongst first degree relatives. Patient has suicidal ideation: No Patient has homicidal ideation: No - Past Medical History Cardiac Medical History: Reports: Hx Hypercholesterolemia, Hx Hypertension Pulmonary Medical History: Reports: Hx Asthma Endocrine Medical History: Reports: Hx Diabetes Mellitus Type 2 Renal/ Medical History: Denies: Hx Peritoneal Dialysis GI Medical History: Reports: Hx Gastroesophageal Reflux Disease, Hx Hiatal Hernia Past Surgical History: Reports: Hx Cardiac Catheterization - stent x1 Vertical Provider Document - CONSTITUTIONAL Notes: PHYSICAL EXAMINATION: GENERAL: Well-appearing, well-nourished and in no acute distress. HEAD: Atraumatic, normocephalic. EYES: Pupils equal round extraocular movements intact, conjunctiva are normal. ENT: Nares patent, right TM unremarkable. Left TM intact with no evidence of perforation, left canal with abrasion, dried blood and swelling. NECK: Normal range of motion LUNGS: No respiratory distress Musculoskeletal: Normal range of motion NEUROLOGICAL: Normal speech, normal gait. PSYCH: Normal mood, normal affect. SKIN: Warm, Dry, normal turgor, no rashes or lesions noted. - INFECTION CONTROL TRAVEL OUTSIDE OF THE [place] IN LAST 30 DAYS: No Course - Re-evaluation Re-evalutation: 07/06/18 09:37 Patient with abrasion to the external left ear canal, there is dried blood noted. There is also swelling and erythema in the canal. We will treat as an otitis externa with eardrops. Patient instructed to not insert anything into her ear. Patient now reports she thinks she scratched the inside of her ear while she was sleeping. - Vital Signs Vital signs: Temp Pulse Resp BP Pulse Ox 98.3 F 90 18 154/94 H 98 07/06/18 08:50 07/06/18 08:50 07/06/18 08:50 07/06/18 08:50 07/06/18 08:50 Discharge - Discharge Clinical Impression: Otitis externa Qualifiers: Otitis externa type: unspecified type Chronicity: unspecified Laterality: left Qualified Code(s): H60.92 - Unspecified otitis externa, left ear Ear canal abrasion Qualifiers: Encounter type: initial encounter Laterality: left Qualified Code(s): S00.412A - Abrasion of left ear, initial encounter Condition: Stable Disposition: HOME, SELF-CARE Additional Instructions: Please place 4 drops into your left ear 3 times daily for 5 days. Do not apply anything else into your ear including Q-tips. Follow-up with your primary care in 5-7 days. Forms: Return to Work Referrals: BRODY JURADO MD [Primary Care Provider] - Follow up as needed
== END 2018-07-06 09:47 | disposition home or self-care (01) ==
LOC: ER 08:46
DX: S00.412A Abrasion of left ear, initial encounter (principal); H60.92 Unspecified otitis externa, left ear; H92.02 Otalgia, left ear; X58.XXXA Exposure to other specified factors, initial encounter; I10 Essential (primary) hypertension; J45.909 Unspecified asthma, uncomplicated; E11.9 Type 2 diabetes mellitus without complications
CPT/HCPCS: 99282; J3490

== ENCOUNTER 2018-09-21 12:07 | Emergency (ER) | payer MEDICAID ==
[2018-09-21] MEDS ORDERED: ASPIRIN 81 MG TABLET, CHEWABLE PO ONE (12:50)
--- NOTE | 2018-09-21 12:53 | ER Document Report ---
ED Medical Screen (RME) - General Chief Complaint: Chest Pain Stated Complaint: CHEST PAIN Time Seen by Provider: 09/21/18 12:45 Primary Care Provider: MARA CARBAJAL MD [Primary Care Provider] - Follow up as needed Mode of Arrival: Ambulatory Information source: Patient Notes: Dr. Huggins in [place] 2 days ago she had a cardiac cath was negative and he said that her heart looked fine that it was her fibromyalgia and started on Cymbalta. She states she has had chest pain and shortness of breath. She does have a history of diabetes type 2 blood pressure cholesterol chest pain fibromyalgia. Patient is alert oriented respirations regular and unlabored speaking in full sentences walks with even steady gait. She states she has severe tenderness to the center of her upper chest and if it is her fibromyalgia that is where the tender spot is at this time. I have greeted and performed a rapid initial assessment of this patient. A comprehensive ED assessment and evaluation of the patient, analysis of test results and completion of medical decision making process will be conducted by an additional ED providers. Dictation of this chart was performed using voice recognition software; therefore, there may be some unintended grammatical errors. TRAVEL OUTSIDE OF THE [place] IN LAST 30 DAYS: No - Related Data Allergies/Adverse Reactions: No Known Allergies Allergy (Verified 09/21/18 12:07) Past Medical History - Social History Frequency of alcohol use: None Drug Abuse: None - Past Medical History Cardiac Medical History: Reports: Hx Hypercholesterolemia, Hx Hypertension Pulmonary Medical History: Reports: Hx Asthma Endocrine Medical History: Reports: Hx Diabetes Mellitus Type 2 Renal/ Medical History: Denies: Hx Peritoneal Dialysis GI Medical History: Reports: Hx Gastroesophageal Reflux Disease, Hx Hiatal Hernia Past Surgical History: Reports: Hx Cardiac Catheterization - stent x1 - Immunizations History of Influenza Vaccine for 01/2017 - 06/2017 Season: No Doctor's Discharge - Discharge Referrals: MARA CARBAJAL MD [Primary Care Provider] - Follow up as needed
--- NOTE | 2018-09-21 12:55 | EKG REPORT ---
SEVERITY:- ABNORMAL ECG - SINUS RHYTHM LVH WITH SECONDARY REPOLARIZATION ABNORMALITY ANTERIOR Q WAVES, POSSIBLY DUE TO LVH, OR MORE LIKELY OLD ANTEROSEPTAL AR. : Confirmed by: Doug Vargas MD 21-Sep-2018 12:54:50
--- NOTE | 2018-09-21 13:12 | RADIOLOGY REPORT (SQ) ---
EXAM DESCRIPTION: CHEST 2 VIEWS COMPLETED DATE/TIME: 09/21/2018 1:03 pm REASON FOR STUDY: chest pain COMPARISON: 03/17/2018 EXAM PARAMETERS: NUMBER OF VIEWS: two views TECHNIQUE: Digital Frontal and Lateral radiographic views of the chest acquired. RADIATION DOSE: NA LIMITATIONS: none FINDINGS: LUNGS AND PLEURA: No opacities, masses or pneumothorax. No pleural effusion. MEDIASTINUM AND HILAR STRUCTURES: No masses or contour abnormalities. HEART AND VASCULAR STRUCTURES: Heart normal size. No evidence for failure. BONES: No acute findings. HARDWARE: None in the chest. OTHER: No other significant finding. IMPRESSION: NO ACUTE RADIOGRAPHIC FINDING IN THE CHEST. TECHNICAL DOCUMENTATION: JOB ID: [id number] [employer]- All Rights Reserved Reading location - IP/workstation name: [email or web address]
[2018-09-21 13:34] LABS: ABSOLUTE EOSINOPHILS # (AUTO) 0.1 10^3/uL (0.0-0.6); ABSOLUTE LYMPHOCYTES (AUTO) 1.9 10^3/uL (0.5-4.7); ABSOLUTE MONOCYTES (AUTO) 0.6 10^3/uL (0.1-1.4); ABSOLUTE NEUT (AUTO) 3.4 10^3/uL (1.7-8.2); BASOPHILS % (AUTO) 0.5 % (0-2); EOSINOPHILS % (AUTO) 2.2 % (0-6); HEMATOCRIT 35.7 % (36.0-47.0); HEMOGLOBIN 11.7 g/dL (12.0-15.5); MEAN CORPUSCULAR HEMOGLOBIN 27.5 pg (27.0-33.4); MEAN CORPUSCULAR HGB CONC 32.8 g/dL (32.0-36.0); MEAN CORPUSCULAR VOLUME 84 fl (80-97); MONOCYTES % (AUTO) 9.5 % (3-13); PLATELET COUNT 277 10^3/uL (150-450); RED BLOOD COUNT 4.25 10^6/uL (3.72-5.28); SEGMENTED NEUTROPHILS % (AUTO) 56.8 % (42-78); TOTAL CELLS COUNTED % (AUTO) 100 %; WHITE BLOOD COUNT 6.1 10^3/uL (4.0-10.5)
[2018-09-21 13:39] LABS: APPEARANCE,URINE CLOUDY; BILIRUBIN,URINE NEGATIVE (NEGATIVE); GLUCOSE, URINE >=500 mg/dL (NEGATIVE); KETONES,URINE TRACE mg/dL (NEGATIVE); LEUKOCYTE ESTERASE,URINE NEGATIVE (NEGATIVE); NITRITE,URINE NEGATIVE (NEGATIVE); PROTEIN,URINE NEGATIVE (NEGATIVE); URINE SPECIFIC GRAVITY 1.027
[2018-09-21 13:47] LABS: COLOR,URINE YELLOW
[2018-09-21 13:48] LABS: ALANINE AMINOTRANSFERASE 23 U/L (9-52); ALBUMIN 4.1 g/dL (3.5-5.0); ALKALINE PHOSPHATASE 93 U/L (38-126); ANION GAP 9 (5-19); ASPARTATE AMINO TRANSFERASE 16 U/L (14-36); BILIRUBIN,DIRECT 0.2 mg/dL (0.0-0.4); BILIRUBIN,TOTAL 0.4 mg/dL (0.2-1.3); BLOOD UREA NITROGEN 10 mg/dL (7-20); CALCIUM 9.1 mg/dL (8.4-10.2); CARBON DIOXIDE 27 mmol/L (22-30); CHLORIDE 106 mmol/L (98-107); GLUCOSE 194 mg/dL (75-110); LIPASE 160.5 U/L (23-300); SODIUM 141.8 mmol/L (137-145); TOTAL PROTEIN 7.3 g/dL (6.3-8.2)
[2018-09-21 14:13] LABS: CREATINE KINASE MB 0.82 ng/mL (<4.55)
[2018-09-21 14:21] LABS: TROPONIN I 0.044 ng/mL
--- NOTE | 2018-09-21 17:11 | ER Document Report ---
ED Cardiac - General Chief Complaint: Chest Pain Stated Complaint: CHEST PAIN Time Seen by Provider: 09/21/18 12:45 Primary Care Provider: MARA CARBAJAL MD [Primary Care Provider] - Follow up as needed Mode of Arrival: Ambulatory Notes: 53-year-old female with past medical history of acute coronary syndrome status post stent in 2018, [id number] diabetes mellitus and hypertension presents emergency department with chief complaint of chest pain that is been ongoing but got acutely worse today. She states that she saw Dr. Huggins in [place] 2 days ago where she had a catheterization performed and was told that it was negative. She said that he said her fibromyalgia was potentially causing her pain and she was started on Cymbalta. She does complain of associated shortness of breath and did have some nausea this morning. She denies diaphoresis or any recent illness. She says that the pain is acutely worse when palpating her chest and she does keep perseverating about her fibromyalgia. No other complaints. TRAVEL OUTSIDE OF THE [place] IN LAST 30 DAYS: No - Related Data Allergies/Adverse Reactions: No Known Allergies Allergy (Verified 09/21/18 12:07) Past Medical History - General Information source: Patient - Social History Smoking Status: Never Smoker Frequency of alcohol use: None Drug Abuse: None Family History: Hypertension - Negative for premature coronary artery disease or sudden cardiac in the family amongst first degree relatives. Patient has suicidal ideation: No Patient has homicidal ideation: No - Past Medical History Cardiac Medical History: Reports: Hx Hypercholesterolemia, Hx Hypertension Pulmonary Medical History: Reports: Hx Asthma Endocrine Medical History: Reports: Hx Diabetes Mellitus Type 2 Renal/ Medical History: Denies: Hx Peritoneal Dialysis GI Medical History: Reports: Hx Gastroesophageal Reflux Disease, Hx Hiatal Hernia Past Surgical History: Reports: Hx Cardiac Catheterization - stent x1 Review of Systems - Review of Systems Constitutional: See HPI EENT: No symptoms reported Cardiovascular: See HPI Respiratory: See HPI Gastrointestinal: See HPI Genitourinary: No symptoms reported Female Genitourinary: No symptoms reported Musculoskeletal: No symptoms reported Skin: No symptoms reported Hematologic/Lymphatic: No symptoms reported Neurological/Psychological: No symptoms reported Physical Exam - Vital signs Vitals: Temp Pulse Resp BP Pulse Ox 98.2 F 98 16 154/96 H 95 09/21/18 12:10 09/21/18 12:10 09/21/18 12:10 09/21/18 12:10 09/21/18 12:10 - Notes Notes: PHYSICAL EXAMINATION: Reviewed vital signs and charting by RN GENERAL: Alert, interacts well. No acute distress. HEAD: Normocephalic, atraumatic. EYES: Pupils equal and round. Extraocular movements intact. ENT: Oral mucosa moist, tongue midline. NECK: Full range of motion. Trachea midline. LUNGS: Clear to auscultation bilaterally, no wheezes, rales, or rhonchi. No respiratory distress. HEART: Regular rate and rhythm. No murmur ABDOMEN: soft, non-tender. No distention. Bowel sounds present EXTREMITIES: Moves all 4 extremities spontaneously. No edema, No cyanosis. PSYCH: Normal affect, normal mood. SKIN: Warm, dry, normal turgor. No rashes or lesions noted. Course - Re-evaluation Re-evalutation: 09/21/18 17:09 Overall well-appearing, initial troponin 0.044. She has had this several troponins here in the past that were all negative so this is a new finding. We do not have enough information this time and after discussion with Dr. Malini Baker I called [facility] cardiology to corroborate the information the patient gave me and to get a recommendation. Repeat troponin has been ordered and drawn. 09/21/18 19:58 Repeat troponin was 0.048. I called cardiac connections at [facility] and spoke with Dr. Villaseñor, patent litigation associate on-call. Her recommendations because the patient to get a catheterization 2 days ago that showed it was patent they would not perform repeat catheterization if the patient did have an NSTEMI. I saw Dr. Huggins, patent litigation associate to actually performed the catheterization here in the emergency department and he saw the patient. He said that there is no reason to transfer at this time nor is there a reason for admission to the hospital. He said with a clean catheterization 2 days ago no further intervention is needed. He did recommend a CTA to rule out pulmonary embolism. CTA was completed and is negative for any pulmonary embolism. At this time she is stable for discharge. - Vital Signs Vital signs: Temp Pulse Resp BP Pulse Ox 98.2 F 98 35 H 178/115 H 100 09/21/18 12:10 09/21/18 12:10 09/21/18 19:20 09/21/18 19:20 09/21/18 19:20 - Laboratory Result Diagrams: 09/21/18 13:15 09/21/18 13:15 Laboratory results interpreted by me: 09/21/18 09/21/18 09/21/18 13:15 13:15 13:15 Hgb 11.7 L Hct 35.7 L RDW 15.0 H Glucose 194 H Urine Glucose (UA) >=500 H Urine Ketones TRACE H Urine Urobilinogen 2.0 H Urine Ascorbic Acid 20 H Discharge - Discharge Clinical Impression: Chest pain Qualifiers: Chest pain type: unspecified Qualified Code(s): R07.9 - Chest pain, unspecified Condition: Good Disposition: HOME, SELF-CARE Additional Instructions: You are seen the emergency department this afternoon for chest pain. It is unclear why you are having the chest pain but it could be chest wall pain related to your fibromyalgia. After discussion with Dr. Huggins and your work-up being negative it is reasonable for you to go home. It is critical that you follow-up with your primary care physician for continued evaluation of this chest pain and possible stress testing. I recommended you see your physician within the next 24-48 hours for follow-up. Please return to emergency department immediately if you have worsening of your chest pain, shortness of breath, vomiting, become unable to exert yourself due to pain or difficulty breathing, you pass out, or have any pain that radiates into your arms, jaw, or back. Please also return if you have any additional symptoms that are concerning to you. Referrals: MARA CARBAJAL MD [Primary Care Provider] - Follow up as needed
--- NOTE | 2018-09-21 19:42 | RADIOLOGY REPORT (SQ) ---
EXAM DESCRIPTION: CTA CHEST COMPLETED DATE/TIME: 09/21/2018 7:20 pm REASON FOR STUDY: CP/+troponin per Dr. Huggins COMPARISON: 02/16/2018 TECHNIQUE: CT scan of the chest performed using helical scanning technique with dynamic intravenous contrast injection. Images reviewed with lung, soft tissue and bone windows. Reconstructed coronal and sagittal MPR images reviewed. Additional 3 dimensional post-processing performed to develop Maximal Intensity Projection images (AL P). All images stored on PACS. All CT scanners at this facility use dose modulation, iterative reconstruction, and/or weight based d osing when appropriate to reduce radiation dose to as low as reasonably achievable (ALARA). [facility]: Dose Right [facility]: CareDose [facility]: Dose Right [facility]: Teradose 4D [facility]: Teamo.ru CONTRAST TYPE AND DOSE: contrast/concentration: Isovue 350.00 mg/ml; Total Contrast Delivered: 85.0 ml; Total Saline Delivered: 110.0 ml Contrast bolus optimized for the pulmonary arteries. Not diagnostic for the aorta. RENAL FUNCTION: BUN 10 creatinine 0.69 RADIATION DOSE: CT Rad equipment meets quality standard of care and radiation dose reduction techniq ues were employed. CTDIvol: 33.0 - 33.1 mGy. DLP: 1235 mGy-cm. . LIMITATIONS: None. FINDINGS: LUNGS AND PLEURA: No infiltrate, effusion, or mass. Small area of scarring in the right l [place] on image 51. This is stable. AORTA AND GREAT VESSELS: No aneurysm. Contrast bolus not optimized for the aorta. HEART: No pericardial effusion. Moderate to marked coronary artery calcifications. PULMONARY ARTERIES: No emboli visualized in the main pulmonary arteries or the segmental branches. HILAR AND MEDIASTINAL STRUCTURES: No identified masses or abnormal nodes. HARDWARE: None in the chest. UPPER ABDOMEN: No significant findings. Limited exam. THYROID AND OTHER SOFT TISSUES: No masses. No adenopathy. BONES: No acute or significant finding. 3D MIPS: Confirm above findings. OTHER: No other significant finding. IMPRESSION: There is no evidence of pulmonary embolus. There is a small subpleural area of scarring in the right lung that is stable. COMMENT: Quality ID # [id number]: Final reports with documentation of one or more dose reduction techniques (e.g., Automated exposure control, adjustment of the mA and/or kV according to patient size, use of iterative reconstruction technique) TECHNICAL DOCUMENTATION: JOB ID: [id number] [employer]- All Rights Reserved Reading location - IP/workstation name: [email or web address]
[2018-09-21 20:36] VITALS: BP 179/105
--- NOTE | 2018-09-22 18:58 | PDOC PROGRESS REPORT ---
Subjective Progress Note for:: 09/21/18 Subjective:: Patient was seen at the request of patient daughter and also physician junior assistant manager. Patient had presented chest discomfort. She was noted to have significantly limited blood-pressure. Patient had a recent heart catheterization just 48 hours ago which showed mild non-obstructive disease. Patient was noted to have markedly tender chest wall. Patient has a history of fibromyalgia. Reason For Visit: CHEST PAIN Physical Exam Vital Signs: Temp Pulse Resp BP Pulse Ox 97.5 F 81 20 179/105 H 100 09/21/18 20:57 09/21/18 20:57 09/21/18 20:57 09/21/18 20:57 09/21/18 20:57 Intake & Output 09/20/18 09/21/18 09/22/18 06:59 06:59 06:59 Weight 104 kg Exam: GEN: NAD, patient alert oriented x3. Appearance and grooming WNL HEENT : Eyes: VICENTE, Ears: No significant abnormalities, Nose: No significant abnormalities. normocephalic atraumatic. Flat midface (-), Receding chin (-) ORAL : Mallampati class IV, narrow arched palate (-) Tonsils: Not enlarged. NECK: no thyromegaly, no masses, trachea is central, JVD is not elevated, carotids 2+ with bruit (-) RESP: lungs clear, no rales, wheezes or rhonchi, nonlabored, accessory muscles of respiration use (-).Marked chest wall tenderness noted. CV: NL S1 and S2. No significant murmurs noted, no gallop, no extra sounds, no clicks, no rub noted. GI: abd NT to palpation, no masses, bowel sounds present, no guarding or rigidity noted. EXT: no clubbing, (-) cyanosis, edema (-), perpheral pulses diminished (no) MUSC/SKEL: no acute joint swelling noted. Muscle strength is generally intact. NEURO: no significant focal neurological deficits are note, sensation grossly intact, AO x 3 PSYCH: NL mood and affect. judgment and insight noted to be intact. SKIN: (-) rash, (-)Signs of pruritus, (-) other significant abnormality Results Laboratory Results: 09/21/18 13:15 09/21/18 13:15 09/21/18 09/21/18 09/21/18 13:15 13:15 13:15 WBC 6.1 RBC 4.25 Hgb 11.7 L Hct 35.7 L MCV 84 MCH 27.5 MCHC 32.8 RDW 15.0 H Plt Count 277 Seg Neutrophils % 56.8 Lymphocytes % 31.0 Monocytes % 9.5 Eosinophils % 2.2 Basophils % 0.5 Absolute Neutrophils 3.4 Absolute Lymphocytes 1.9 Absolute Monocytes 0.6 Absolute Eosinophils 0.1 Absolute Basophils 0.0 Sodium 141.8 Potassium 4.0 Chloride 106 Carbon Dioxide 27 Anion Gap 9 BUN 10 Creatinine 0.69 Est GFR ( Amer) > 60 Est GFR (Non-Af Amer) > 60 Glucose 194 H Calcium 9.1 Total Bilirubin 0.4 AST 16 ALT 23 Alkaline Phosphatase 93 Total Protein 7.3 Albumin 4.1 Lipase 160.5 Urine Color YELLOW Urine Appearance CLOUDY Urine pH 5.0 Ur Specific [place] 1.027 Urine Protein NEGATIVE Urine Glucose (UA) >=500 H Urine Ketones TRACE H Urine Blood NEGATIVE Urine Nitrite NEGATIVE Ur Leukocyte Esterase NEGATIVE Urine WBC (Auto) 1 Urine RBC (Auto) 2 09/21/18 09/21/18 13:15 17:07 CK-MB (CK-2) 0.82 Troponin I 0.044 0.048 EKG Comments: Sinus rhythm, no acute ST-T wave changes are noted. Unchanged from before. Impressions: Chest X-Ray 09/21/18 12:50 IMPRESSION: NO ACUTE RADIOGRAPHIC FINDING IN THE CHEST. Chest/Abdomen CTA 09/21/18 18:38 IMPRESSION: There is no evidence of pulmonary embolus. There is a small subpleural area of scarring in the right lung that is stable. Assessment & Plan - Diagnosis (1) CAD (coronary artery disease) Qualifiers: Coronary Disease-Associated Artery/Lesion type: [place] artery [place] vs. 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 Diabetes mellitus complication status: with other specified complication Qualified Code(s): E11.69 - Type 2 diabetes mellitus with other specified complication Is this a current diagnosis for this admission?: Yes (4) Dyslipidemia Is this a current diagnosis for this admission?: Yes (5) GERD (gastroesophageal reflux disease) Qualifiers: Esophagitis presence: esophagitis presence not specified Qualified Code(s): K21.9 - Gastro-esophageal reflux disease without esophagitis Is this a current diagnosis for this admission?: Yes (6) Hypertension Qualifiers: Hypertension type: essential hypertension Qualified Code(s): I10 - Essential (primary) hypertension Is this a current diagnosis for this admission?: Yes - Notes Notes: Patient chest pain is felt clinically non-cardiac and most likely related to musculoskeletal cause. Patient does have abnormal troponin I in the low negative range. This is felt to be related to cardiac authorisation procedure and possibly also related to severe hypertension being noted. It is felt that patient will benefit from close cardiology follow-up and is felt to be relatively safe for discharge. Patient advised to come to the office the next day. Patient will benefit from good control of hypertension, diabetes, good pain management and treatment of fibromyalgia as well as sleep apnea.
== END 2018-09-21 20:58 | disposition home or self-care (01) ==
LOC: ER 12:07
DX: R07.9 Chest pain, unspecified (principal); E11.9 Type 2 diabetes mellitus without complications; I10 Essential (primary) hypertension; J45.909 Unspecified asthma, uncomplicated
CPT/HCPCS: 36415; 71046; 71275; 80053; 81001; 82553; 83690; 84484; 85025; 93005; 93010; 99284

== ENCOUNTER 2018-12-13 21:18 | Emergency (ER) | payer MEDICAID ==
[2018-12-13 21:27] VITALS: BP 168/107
[2018-12-13] MEDS ORDERED: OXYCODONE-ACETAMINOPHEN 5-325 MG TABLET PO ONE (22:14)
[2018-12-13] MEDS ORDERED: PENICILLIN V POTASSIUM 500 MG TABLET PO ONE (22:14)
[2018-12-13] MEDS ORDERED: ONDANSETRON 4 MG TAB.RAPDIS PO ONE (22:14)
[2018-12-13] MEDS ORDERED: HYDROCODONE/ACETAMINOPHEN 5-325 MG (6 TAB/ER DISP) PO PRN (22:18)
--- NOTE | 2018-12-13 22:21 | ER Document Report ---
HPI - HPI Time Seen by Provider: 12/13/18 21:54 Pain Level: 5 Context: Patient is a 53-year-old female that comes to the emergency department for chief complaint of dental pain. She states this is progressed over the past 2 to 3 days, she states that first ibuprofen and BC powder was helping but now it is not. She denies throat pain, neck pain, fever/chills, or any other complaints. She states she does have dental insurance but she did not have a dentist. - REPRODUCTIVE LMP: 11/25/18 Reproductive: DENIES: : Past Medical History - General Information source: Patient - Social History Smoking Status: Never Smoker Frequency of alcohol use: None Drug Abuse: None Lives with: Family Family History: Reviewed & Not Pertinent, Hypertension - Negative for premature coronary artery disease or sudden cardiac in the family amongst first degree relatives. Patient has suicidal ideation: No Patient has homicidal ideation: No - Past Medical History Cardiac Medical History: Reports: Hx Hypercholesterolemia, Hx Hypertension Pulmonary Medical History: Reports: Hx Asthma Endocrine Medical History: Reports: Hx Diabetes Mellitus Type 2 Renal/ Medical History: Denies: Hx Peritoneal Dialysis GI Medical History: Reports: Hx Gastroesophageal Reflux Disease, Hx Hiatal Hernia Musculoskeletal Medical History: Reports Hx Arthritis, Reports Hx Fibromyalgia, Reports Hx Musculoskeletal Deformity, Reports Hx Musculoskeletal Trauma Past Surgical History: Reports: Hx Cardiac Catheterization - stent x1 - Immunizations Immunizations up to date: Yes Vertical Provider Document - CONSTITUTIONAL General Appearance: WD/WN, Mild Distress - Patient is holding the left side of her face and appears to be uncomfortable. She is not in severe distress [facility] er. - INFECTION CONTROL TRAVEL OUTSIDE OF THE [place] IN LAST 30 DAYS: No - HEENT HEENT: Atraumatic, Normocephalic, PERRLA. negative: Conjuctival Injection, Pharyngeal Exudate, Pharyngeal Tenderness, Pharyngeal Erythema, Tympanic Membrane Red, Tympanic Membrane Bulging Mouth Diagram: 1 - Broken tooth with dental decay, surrounding erythema and tenderness of the gumline. No induration or fluctuance, unremarkable oropharyngeal exam otherwise except for scattered dental caries - NECK Neck: Normal Inspection. negative: Lymphadenopathy-Left, Lymphadenopathy-Right - RESPIRATORY Respiratory: Breath Sounds Normal, No Respiratory Distress - CARDIOVASCULAR Cardiovascular: Regular Rate, Regular Rhythm - GI/ABDOMEN Gastrointestinal: Abdomen Soft, Abdomen Non-Tender - BACK Back: Normal Inspection - MUSCULOSKELETAL/EXTREMETIES Musculoskeletal/Extremeties: MAEW, FROM, Non-Tender - NEURO Level of Consciousness: Awake, Alert, Appropriate - DERM Integumentary: Warm, Dry, No Rash Course - Re-evaluation Re-evalutation: Evaluation is consistent with dental caries and dental infection. No secondary abscess is seen, no evidence of Anam's angina, no significant swelling to the face. Placing on antibiotics, referring to dentist, discussed return precautions. Patient states understanding and agreement. - Vital Signs Vital signs: Temp Pulse Resp BP Pulse Ox 98 F 96 18 168/107 H 97 12/13/18 21:19 12/13/18 21:19 12/13/18 21:19 12/13/18 21:19 12/13/18 21:19 Discharge - Discharge Clinical Impression: Pain, dental, Dental infection Condition: Stable Disposition: HOME, SELF-CARE Additional Instructions: Your evaluation is consistent with a dental infection. Take antibiotics as prescribed. Call and follow-up closely with the dentist for additional management of this will continue to happen. Come back if you are worse including swelling of the face. [facility] [address] [place] [id number] Prescriptions: Penicillin V Potassium [Penicillin Vk 500 mg Tablet] 500 mg PO BID #20 tablet Referrals: MARA CARBAJAL MD [Primary Care Provider] - Follow up as needed
== END 2018-12-13 22:34 | disposition home or self-care (01) ==
LOC: ER 21:18
DX: K04.7 Periapical abscess without sinus (principal); K02.9 Dental caries, unspecified; K08.89 Other specified disorders of teeth and supporting structures; I10 Essential (primary) hypertension; J45.909 Unspecified asthma, uncomplicated; E11.9 Type 2 diabetes mellitus without complications
CPT/HCPCS: 99282; S0119; J3490

== ENCOUNTER 2018-12-17 23:08 | Emergency (ER) | payer MEDICAID ==
[2018-12-18] MEDS ORDERED: HYDROCODONE/ACETAMINOPHEN 5-325 MG TABLET PO ONE (00:49)
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
[2018-12-18] MEDS ORDERED: PENICILLIN V POTASSIUM 500 MG TABLET PO ONE (00:50)
[2018-12-18] MEDS ORDERED: ONDANSETRON 4 MG TAB.RAPDIS ONE (01:02)
[2018-12-18] MEDS ORDERED: ONDANSETRON 4 MG TAB.RAPDIS PO ONE (01:05)
[2018-12-18 01:15] VITALS: BP 149/92
== END 2018-12-18 01:35 | disposition home or self-care (01) ==
LOC: ER 23:08
DX: K08.89 Other specified disorders of teeth and supporting structures (principal); I11.0 Hypertensive heart disease with heart failure; I50.9 Heart failure, unspecified; I25.10 Atherosclerotic heart disease of native coronary artery without angina pectoris; E11.9 Type 2 diabetes mellitus without complications; J45.909 Unspecified asthma, uncomplicated
CPT/HCPCS: 99282; S0119; J3490

== ENCOUNTER 2018-12-23 18:36 | Emergency (ER) | payer MEDICAID ==
[2018-12-23] MEDS ORDERED: MAG HYDROX/AL HYDROX/SIMETH SUSP 30 ML UDCUP PO ONE (19:34)
[2018-12-23] MEDS ORDERED: METOCLOPRAMIDE HCL ORAL SOLN 10 MG/10 ML UDCUP PO ONE (19:34)
[2018-12-23] MEDS ORDERED: LIDOCAINE 2% VISCOUS SOLN 20 ML UDCUP PO ONE (19:34)
--- NOTE | 2018-12-23 19:38 | ER Document Report ---
ED Medical Screen (RME) - General Chief Complaint: Chest Pain Stated Complaint: CHEST PAIN Time Seen by Provider: 12/23/18 19:19 Primary Care Provider: MARA CARBAJAL MD [Primary Care Provider] - Follow up as needed Notes: Patient is a 53-year-old female with a history of hypertension, diabetes, [place] with one cardiac stent, asthma, congestive heart failure and a large chart who presents to the emergency department with a chief complaint of chest pain. Patient reports this morning she woke up and not feeling just right in her chest. Patient did take a sublingual nitro which did seem to help. Patient states she has taken 1 baby aspirin today. Patient reports nausea without vomiting. Patient also reports increased acid reflux and a burning sensation in the center of her chest and esophagus. Patient does take Protonix for her acid reflux. Patient reports last time she had a heart attack she was having increase in acid reflux as well. Patient reports chest pain radiates into the left shoulder. Patient reports she does have a history of possible lupus that they are attempting to rule out and fibromyalgia. TRAVEL OUTSIDE OF THE [place] IN LAST 30 DAYS: No - Related Data Allergies/Adverse Reactions: No Known Allergies Allergy (Verified 12/13/18 21:27) Past Medical History - Social History Chew tobacco use (# tins/day): No Frequency of alcohol use: None Drug Abuse: None - Past Medical History Cardiac Medical History: Reports: Hx Congestive Heart Failure, Hx Coronary Artery Disease, Hx Heart Attack, Hx Hypercholesterolemia, Hx Hypertension Pulmonary Medical History: Reports: Hx Asthma Endocrine Medical History: Reports: Hx Diabetes Mellitus Type 2 Renal/ Medical History: Denies: Hx Peritoneal Dialysis GI Medical History: Reports: Hx Gastroesophageal Reflux Disease, Hx Hiatal Hernia Musculoskeltal Medical History: Reports Hx Arthritis, Reports Hx Fibromyalgia, Reports Hx Musculoskeletal Deformity, Reports Hx Musculoskeletal Trauma Past Surgical History: Reports: Hx Cardiac Catheterization - stent x1, Hx Ca rdiac Surgery - Immunizations Immunizations up to date: Yes History of Influenza Vaccine for 01/2017 - 06/2017 Season: No Physical Exam - Vital signs Vitals: Temp Pulse Resp BP Pulse Ox 98.6 F 95 16 150/90 H 94 12/23/18 18:53 12/23/18 18:53 12/23/18 18:53 12/23/18 18:53 12/23/18 18:53 Interpretation: Hypertensive - Respiratory Respiratory status: No respiratory distress Chest status: Tender Breath sounds: Normal Chest palpation: Normal - Cardiovascular Rhythm: Regular Heart sounds: Normal auscultation, S1 appreciated, S2 appreciated Course - Re-evaluation Re-evalutation: 12/23/18 19:37 I have greeted and performed a rapid initial assessment of this patient. A comprehensive ED assessment and evaluation of the patient, analysis of test results and completion of the medical decision making process will be conducted by additional ED providers. - Vital Signs Vital signs: Temp Pulse Resp BP Pulse Ox 98.6 F 95 16 150/90 H 94 12/23/18 18:53 12/23/18 18:53 12/23/18 18:53 12/23/18 18:53 12/23/18 18:53 Doctor's Discharge - Discharge Referrals: MARA CARBAJAL MD [Primary Care Provider] - Follow up as needed
--- NOTE | 2018-12-23 19:46 | EKG REPORT ---
SEVERITY:- ABNORMAL ECG - SINUS RHYTHM LEFT VENTRICULAR HYPERTROPHY ANTERIOR Q WAVES, POSSIBLY DUE TO LVH : Confirmed by: Niya William MD 23-Dec-2018 19:46:04
[2018-12-23 20:11] LABS: ABSOLUTE BASOPHILS # (AUTO) 0.1 10^3/uL (0.0-0.2); ABSOLUTE EOSINOPHILS # (AUTO) 0.2 10^3/uL (0.0-0.6); ABSOLUTE LYMPHOCYTES (AUTO) 2.2 10^3/uL (0.5-4.7); ABSOLUTE MONOCYTES (AUTO) 0.8 10^3/uL (0.1-1.4); ABSOLUTE NEUT (AUTO) 5.6 10^3/uL (1.7-8.2); BASOPHILS % (AUTO) 0.8 % (0-2); EOSINOPHILS % (AUTO) 2.2 % (0-6); HEMATOCRIT 35.6 % (36.0-47.0); HEMOGLOBIN 11.7 g/dL (12.0-15.5); MEAN CORPUSCULAR HEMOGLOBIN 27.8 pg (27.0-33.4); MEAN CORPUSCULAR HGB CONC 32.9 g/dL (32.0-36.0); MEAN CORPUSCULAR VOLUME 85 fl (80-97); MONOCYTES % (AUTO) 8.5 % (3-13); PLATELET COUNT 279 10^3/uL (150-450); RED BLOOD COUNT 4.22 10^6/uL (3.72-5.28); RED CELL DISTRIBUTION WIDTH 14.7 % (11.5-14.0); SEGMENTED NEUTROPHILS % (AUTO) 63.5 % (42-78); TOTAL CELLS COUNTED % (AUTO) 100 %; WHITE BLOOD COUNT 8.9 10^3/uL (4.0-10.5)
[2018-12-23 20:32] LABS: ALBUMIN 4.1 g/dL (3.5-5.0); ALKALINE PHOSPHATASE 84 U/L (38-126); ANION GAP 11 (5-19); ASPARTATE AMINO TRANSFERASE 13 U/L (14-36); BILIRUBIN,DIRECT 0.1 mg/dL (0.0-0.4); BILIRUBIN,TOTAL 0.2 mg/dL (0.2-1.3); BLOOD UREA NITROGEN 11 mg/dL (7-20); CALCIUM 9.1 mg/dL (8.4-10.2); CARBON DIOXIDE 24 mmol/L (22-30); CHLORIDE 102 mmol/L (98-107); GLUCOSE 230 mg/dL (75-110); POTASSIUM 4.2 mmol/L (3.6-5.0)
--- NOTE | 2018-12-23 21:01 | ER Document Report ---
ED Cardiac - General Chief Complaint: Chest Pain Stated Complaint: CHEST PAIN Time Seen by Provider: 12/23/18 19:19 Primary Care Provider: MARA CARBAJAL MD [Primary Care Provider] - Follow up as needed Mode of Arrival: Ambulatory Information source: Patient Notes: Patient is a 53-year-old female with a history of hypertension, diabetes, [place] with one cardiac stent, asthma, congestive heart failure and a large chart who presents to the emergency department with a chief complaint of chest pain. Patient reports this morning she woke up and not feeling just right in her chest. Patient did take a sublingual nitro which did seem to help. Patient states she has taken 1 baby aspirin today. Patient reports nausea without vomiting. Patient also reports increased acid reflux and a burning sensation in the center of her chest and esophagus. Patient does take Protonix for her acid reflux. Patient reports last time she had a heart attack she was having incr ease in acid reflux as well. Patient reports chest pain radiates into the left shoulder. Patient reports she does have a history of possible lupus that they are attempting to rule out and fibromyalgia. TRAVEL OUTSIDE OF THE [place] IN LAST 30 DAYS: No History of Present Illness Chief Complaint: Chest pain 53 years old male presents today with left-sided chest pain since this morning on and off. Initially taking aspirin improved it. But later on he came back. She was given GI cocktail at the triage, states pain has improved a little but still present. Pain radiated to the left shoulder, no left arm numbness or tingling sensation. Denies any nausea vomiting palpitation or diaphoresis. Denies any shortness of breath. Denies any fever chills or other constitutional symptoms denies any cough History obtained from patient Symptoms began: Today Onset: Gradual Timing: Constant, now gone Quality: "pain" Intensity: Moderate Location: Left substernal Radiation: None Migration: None Aggravating factors: [Change of position Relieving factors: None Major PE risk factors: [Diabetes and obesity, Major aortic dissection risk factors: None Review of Systems: All other systems negative as reviewed. CONSTITUTIONAL No fever, No chills, No sweats. EYES No eye pain. ENT No URI symptoms, No sore throat, No ear pain. CARDIOVASCULAR + chest pain, No palpitations, No edema. RESPIRATORY No Cough, No SOB, No wheezing. GASTROINTESTINAL No abdominal pain, No nausea, No diarrhea, No vomiting, No GI Bleeding. GENITOURINARY No UTI symptoms. MUSCULOSKELETAL No back pain, No calf swelling, No calf pain. SKIN No Rash. NEUROLOGIC No Headache Physical Exam CONSTITUTIONAL Vital signs reviewed, Patient appears uncomfortable, Alert and oriented X 3, not in any major discomfort. Obesity HEAD Atraumatic, Normocephalic. EYES Eyes are normal to inspection, No discharge from eyes, Extraocular muscles intact, Sclera are normal, Conjunctiva are normal. ENT Ears normal to inspection, Nose examination normal, Posterior pharynx normal, Mouth normal to inspection. NECK Normal ROM, No jugular venous distention, No meningeal signs, no carotid bruit. RESPIRATORY CHEST Chest is diffusely tender from the right sternocostal region to left sternocostal region., Breath sounds normal, No respiratory distress. CARDIOVASCULAR RRR, No murmurs, Normal S1 S2, No rub, No gallop. ABDOMEN Abdomen is nontender, No pulsatile masses, No other masses, Bowel sounds normal, No distension, No peritoneal signs, No hernias. BACK There is no CVA Tenderness, There is no tenderness to palpation, Normal inspection. UPPER EXTREMITY Inspection normal, No cyanosis, No clubbing, No edema, 2+ radial pulses. LOWER EXTREMITY Inspection normal, No cyanosis, No clubbing, No edema, No calf tenderness, 2+ femoral pulses. NEURO No focal motor deficits, No focal sensory deficits, Speech normal. SKIN Skin is warm, Skin is dry, Skin is normal color. LYMPHATIC No adenopathy in neck. PSYCHIATRIC Normal affect. TRAVEL OUTSIDE OF THE [place] IN LAST 30 DAYS: No - HPI Notes: Dictated - Related Data Allergies/Adverse Reactions: No Known Allergies Allergy (Verified 12/23/18 23:25) Past Medical History - General Information source: Patient - Social History Smoking Status: Never Smoker Chew tobacco use (# tins/day): No Frequency of alcohol use: None Drug Abuse: None Lives with: Family Family History: Reviewed & Not Pertinent, Hypertension - Negative for premature coronary artery disease or sudden cardiac in the family amongst first degree relatives. Patient has suicidal ideation: No Patient has homicidal ideation: No - Medical History Notes: Dictated - Past Medical History Cardiac Medical History: Reports: Hx Congestive Heart Failure, Hx Coronary Artery Disease, Hx Heart Attack, Hx Hypercholesterolemia, Hx Hypertension Pulmonary Medical History: Reports: Hx Asthma Endocrine Medical History: Reports: Hx Diabetes Mellitus Type 2 Renal/ Medical History: Denies: Hx Peritoneal Dialysis GI Medical History: Reports: Hx Gastroesophageal Reflux Disease, Hx Hiatal Hernia Musculoskeletal Medical History: Reports Hx Arthritis, Reports Hx Fibromyalgia, Reports Hx Musculoskeletal Deformity, Reports Hx Musculoskeletal Trauma Past Surgical History: Reports: Hx Cardiac Catheterization - stent x1, Hx Cardiac Surgery - Immunizations Immunizations up to date: Yes Review of Systems - Review of Systems Notes: Dictated Physical Exam - Vital signs Vitals: Temp Pulse Resp BP Pulse Ox 98.6 F 95 16 150/90 H 94 12/23/18 18:53 12/23/18 18:53 12/23/18 18:53 12/23/18 18:53 12/23/18 18:53 - Notes Notes: Dictated Course - Re-evaluation Re-evalutation: 12/24/18 00:28 No no chest pain. - Vital Signs Vital signs: Temp Pulse Resp BP Pulse Ox 98.6 F 95 28 H 134/88 H 100 12/23/18 18:53 12/23/18 18:53 12/23/18 23:32 12/23/18 23:32 12/23/18 23:32 - Laboratory Result Diagrams: 12/23/18 19:56 12/23/18 19:56 Laboratory results interpreted by me: 12/23/18 12/23/18 19:56 19:56 Hgb 11.7 L Hct 35.6 L RDW 14.7 H Sodium 136.9 L Glucose 230 H AST 13 L - Diagnostic Test Radiology reviewed: Reports reviewed - Chest x-ray reported by radiologist as unremarkable Discharge - Discharge Clinical Impression: Chest wall pain GERD (gastroesophageal reflux disease) Qualifiers: Esophagitis presence: without esophagitis Qualified Code(s): K21.9 - Gastro- esophageal reflux disease without esophagitis Condition: Good Disposition: HOME, SELF-CARE Instructions: Chest Wall Pain ([facility]), Reflux Disease (GERD) ([facility]) Prescriptions: Hydrocodone/Acetaminophen [[place] 5-325 Tablet] 1 each PO TID #14 tablet Referrals: MARA CARBAJAL MD [Primary Care Provider] - Follow up as needed
--- NOTE | 2018-12-23 21:13 | RADIOLOGY REPORT (SQ) ---
EXAM DESCRIPTION: XR CHEST 2 VIEWS COMPLETED DATE/TME: 12/23/2018 19:34 CLINICAL HISTORY: 53 years, Female, chest pain COMPARISON: 09/21/2018 chest NUMBER OF VIEWS: 2 TECHNIQUE: 2 view chest LIMITATIONS: None. FINDINGS: The heart size is normal. Lungs are clear. No pneumothorax IMPRESSION: Negative chest copyright 2010 [employer]- All Rights Reserved
[2018-12-23] MEDS ORDERED: HYDROCODONE/ACETAMINOPHEN 5-325 MG TABLET PO ONE (23:02)
[2018-12-23 23:26] LABS: URINE AMPHETAMINES SCREEN NEGATIVE; URINE BARBITURATES SCREEN NEGATIVE; URINE BENZODIAZEPINES SCREEN NEGATIVE; URINE COCAINE SCREEN NEGATIVE; URINE MARIJUANA (THC) SCREEN NEGATIVE; URINE METHADONE SCREEN NEGATIVE; URINE PHENCYCLIDINE SCREEN NEGATIVE
[2018-12-24 00:40] VITALS: BP 150/81
== END 2018-12-24 00:52 | disposition home or self-care (01) ==
LOC: ER 18:36
DX: R07.89 Other chest pain (principal); K21.9 Gastro-esophageal reflux disease without esophagitis; Z79.899 Other long term (current) drug therapy; R11.0 Nausea; I25.10 Atherosclerotic heart disease of native coronary artery without angina pectoris; I10 Essential (primary) hypertension; I25.2 Old myocardial infarction; E11.9 Type 2 diabetes mellitus without complications; J45.909 Unspecified asthma, uncomplicated; Z86.74 Personal history of sudden cardiac arrest; Z95.5 Presence of coronary angioplasty implant and graft
CPT/HCPCS: 93005; 99285; 36415; 85025; 80053; 84484; 80307; 71046; 93010; J3490 ×3

== ENCOUNTER 2019-04-29 18:11 | Emergency (ER) | payer MEDICAID ==
--- NOTE | 2019-04-29 18:35 | EKG REPORT ---
SEVERITY:- ABNORMAL ECG - SINUS RHYTHM LEFT VENTRICULAR HYPERTROPHY ANTERIOR Q WAVES, POSSIBLY DUE TO LVH : Confirmed by: Niya William MD 29-Apr-2019 18:34:34
--- NOTE | 2019-04-29 18:36 | ER Document Report ---
ED Medical Screen (RME) - General Stated Complaint: CHEST PAIN Time Seen by Provider: 04/29/19 18:30 Primary Care Provider: MARA CARBAJAL MD [Primary Care Provider] - Follow up as needed TRAVEL OUTSIDE OF THE [place] IN LAST 30 DAYS: No - HPI Notes: 04/29/19 18:34 Patient is a 54-year-old female with a history of hypertension, CAD (on Brilinta and baby aspirin daily), diabetes presents complaining of sternal chest pain that is been present more so over the past couple days. Patient states that she does have pain on and off like this over the past year+ since her heart surgery. No fever. She is able to eat and drink without difficulty. I have treated and performed a rapid initial assessment of this patient. A comprehensive ED assessment and evaluation of the patient, analysis of test re sults and completion of medical decision making process will be conducted by additional ED providers. PHYSICAL EXAMINATION: GENERAL: Well-appearing, well-nourished and in no acute distress. A&Ox4. Answers questions appropriately. Heart: RRR Lungs: CTAB Extremities: No edema - Related Data Allergies/Adverse Reactions: No Known Allergies Allergy (Verified 04/29/19 18:29) Past Medical History - Past Medical History Cardiac Medical History: Reports: Hx Congestive Heart Failure, Hx Coronary Artery Disease, Hx Heart Attack, Hx Hypercholesterolemia, Hx Hypertension Pulmonary Medical History: Reports: Hx Asthma Endocrine Medical History: Reports: Hx Diabetes Mellitus Type 2 Renal/ Medical History: Denies: Hx Peritoneal Dialysis GI Medical History: Reports: Hx Gastroesophageal Reflux Disease, Hx Hiatal Hernia Musculoskeltal Medical History: Reports Hx Arthritis, Reports Hx Fibromyalgia, Reports Hx Musculoskeletal Deformity, Reports Hx Musculoskeletal Trauma Past Surgical History: Reports: Hx Cardiac Catheterization - stent x1, Hx Cardiac Surgery - Immunizations Immunizations up to date: Yes Physical Exam - Vital signs Vitals: Temp Pulse Resp BP Pulse Ox 98.1 F 101 H 20 156/94 H 95 04/29/19 18:28 04/29/19 18:28 04/29/19 18:28 04/29/19 18:28 04/29/19 18:28 Course - Vital Signs Vital signs: Temp Pulse Resp BP Pulse Ox 98.1 F 101 H 20 156/94 H 95 04/29/19 18:28 04/29/19 18:28 04/29/19 18:28 04/29/19 18:28 04/29/19 18:28 Doctor's Discharge - Discharge Referrals: MARA CARBAJAL MD [Primary Care Provider] - Follow up as needed
[2019-04-29 19:24] LABS: ABSOLUTE BASOPHILS # (AUTO) 0.1 10^3/uL (0.0-0.2); ABSOLUTE EOSINOPHILS # (AUTO) 0.2 10^3/uL (0.0-0.6); ABSOLUTE LYMPHOCYTES (AUTO) 1.9 10^3/uL (0.5-4.7); ABSOLUTE MONOCYTES (AUTO) 0.7 10^3/uL (0.1-1.4); ABSOLUTE NEUT (AUTO) 4.2 10^3/uL (1.7-8.2); BASOPHILS % (AUTO) 0.8 % (0-2); EOSINOPHILS % (AUTO) 2.9 % (0-6); HEMATOCRIT 37.7 % (36.0-47.0); HEMOGLOBIN 12.4 g/dL (12.0-15.5); LYMPHOCYTES % (AUTO) 27.3 % (13-45); MEAN CORPUSCULAR HEMOGLOBIN 27.5 pg (27.0-33.4); MEAN CORPUSCULAR HGB CONC 32.8 g/dL (32.0-36.0); MEAN CORPUSCULAR VOLUME 84 fl (80-97); MONOCYTES % (AUTO) 9.5 % (3-13); RED CELL DISTRIBUTION WIDTH 14.9 % (11.5-14.0); SEGMENTED NEUTROPHILS % (AUTO) 59.5 % (42-78); TOTAL CELLS COUNTED % (AUTO) 100 %; WHITE BLOOD COUNT 7.1 10^3/uL (4.0-10.5)
[2019-04-29 19:42] LABS: ALBUMIN 3.9 g/dL (3.5-5.0); ALKALINE PHOSPHATASE 113 U/L (38-126); ANION GAP 10 (5-19); ASPARTATE AMINO TRANSFERASE 16 U/L (14-36); BILIRUBIN,DIRECT 0.3 mg/dL (0.0-0.4); BILIRUBIN,TOTAL 0.4 mg/dL (0.2-1.3); BLOOD UREA NITROGEN 9 mg/dL (7-20); CALCIUM 9.1 mg/dL (8.4-10.2); CARBON DIOXIDE 26 mmol/L (22-30); CHLORIDE 98 mmol/L (98-107); GLUCOSE 312 mg/dL (75-110); PLATELET COUNT 243 10^3/uL (150-450); POTASSIUM 4.4 mmol/L (3.6-5.0); TOTAL PROTEIN 7.3 g/dL (6.3-8.2)
--- NOTE | 2019-04-29 19:52 | RADIOLOGY REPORT (SQ) ---
EXAM DESCRIPTION: CHEST 2 VIEWS COMPLETED DATE/TIME: 04/29/2019 7:35 pm REASON FOR STUDY: CP COMPARISON: 12/23/2018 TECHNIQUE: Frontal and lateral radiographic views of the chest acquired. NUMBER OF VIEWS: Two view. LIMITATIONS: None. FINDINGS: LUNGS AND PLEURA: No pneumothorax. No consolidation or pleural effusion. MEDIASTINUM AND HILAR STRUCTURES: Stable. HEART AND VASCULAR STRUCTURES: Stable. BONES: No acute findings. HARDWARE: None in the chest. OTHER: No other significant finding. IMPRESSION: NO ACUTE FINDINGS. TECHNICAL DOCUMENTATION: JOB ID: [id number] [id number] 2010 [employer] All Rights Reserved Reading location - IP/workstation name: [email or web address]
[2019-04-29] MEDS ORDERED: DEXAMETHASONE SOD PHOS INJ 10 MG/1 ML VIAL IV ONE (20:17)
[2019-04-29] MEDS ORDERED: KETOROLAC TROMETHAMINE INJ/PF 30 MG/1 ML SDV IV ONE (20:17)
[2019-04-29] MEDS ORDERED: MORPHINE SULFATE 10 MG/ML INJ IV ONE (20:18)
--- NOTE | 2019-04-29 20:23 | ER Document Report ---
ED General - General Chief Complaint: Chest Pain Stated Complaint: CHEST PAIN Time Seen by Provider: 04/29/19 18:30 Primary Care Provider: MARA CARBAJAL MD [Primary Care Provider] - Follow up as needed Information source: Patient, Relative Notes: 54-year-old black female arrives with chief complaint of anterior chest pain is reproducible. Patient had an TN in 2018 but has since been diagnosed with fibromyalgia. Her PMD checked her for lupus but this was ruled out. She has been lifting up multiple grandchildren who are in the room with her. She denies lifting these children up but several children advised me that she actually does lift these children. She points to her anterior breastbone as being mainly painful. She denies any diaphoresis shortness of breath fever chills cough cold TRAVEL OUTSIDE OF THE [place] IN LAST 30 DAYS: No - HPI Onset: Just prior to arrival - Related Data Allergies/Adverse Reactions: No Known Allergies Allergy (Verified 04/29/19 18:29) Past Medical History - General Information source: Patient, Relative - Social History Smoking Status: Never Smoker Cigarette use (# per day): No Chew tobacco use (# tins/day): No Smoking Education Provided: No Frequency of alcohol use: None Drug Abuse: None Lives with: Family Family History: Reviewed & Not Pertinent, Hypertension - Negative for premature coronary artery disease or sudden cardiac in the family amongst first degree relatives. Patient has suicidal ideation: No Patient has homicidal ideation: No - Past Medical History Cardiac Medical History: Reports: Hx Congestive Heart Failure, Hx Coronary Artery Disease, Hx Heart Attack, Hx Hypercholesterolemia, Hx Hypertension Pulmonary Medical History: Reports: Hx Asthma Endocrine Medical History: Reports: Hx Diabetes Mellitus Type 2 Renal/ Medical History: Denies: Hx Peritoneal Dialysis GI Medical History: Reports: Hx Gastroesophageal Reflux Disease, Hx Hiatal Hernia Musculoskeletal Medical History: Reports Hx Arthritis, Reports Hx Fibromyalgia, Reports Hx Musculoskeletal Deformity, Reports Hx Musculoskeletal Trauma Past Surgical History: Reports: Hx Cardiac Catheterization - stent x1, Hx Cardiac Surgery - Immunizations Immunizations up to date: Yes Review of Systems - Review of Systems Constitutional: No symptoms reported EENT: No symptoms reported Cardiovascular: No symptoms reported Respiratory: No symptoms reported Gastrointestinal: No symptoms reported Genitourinary: No symptoms reported Female Genitourinary: No symptoms reported Musculoskeletal: No symptoms reported Skin: No symptoms reported Hematologic/Lymphatic: No symptoms reported Neurological/Psychological: No symptoms reported Physical Exam - Vital signs Vitals: Temp Pulse Resp BP Pulse Ox 98.1 F 101 H 20 156/94 H 95 04/29/19 18:28 04/29/19 18:28 04/29/19 18:28 04/29/19 18:28 04/29/19 18:28 Interpretation: Normal - General General appearance: Appears well - HEENT Head: Normocephalic Eyes: Normal Conjunctiva: Normal Extraocular movements intact: Yes Eyelashes: Normal Pupils: PERRL Ears: Normal Tympanic membrane: Normal Nasal: Normal Mouth/Lips: Normal Mucous membranes: Normal - Respiratory Respiratory status: No respiratory distress Chest status: Tender - Anterior chest wall tender to palpation to include sternum - Cardiovascular Rhythm: Regular Heart sounds: Normal auscultation Murmur: No Friction rub: No Gail's crunch: No - Abdominal Inspection: Obese Distension: No distension Bowel sounds: Normal Tenderness: Nontender - Back Back: Normal - Extremities General upper extremity: Normal inspection General lower extremity: Normal inspection - Neurological Neuro grossly intact: Yes Cognition: Normal Orientation: AAOx4 [place] Coma Scale Eye Opening: Spontaneous [place] Coma Scale Verbal: Oriented Speech: Normal Cranial nerves: Normal Cerebellar coordination: Normal - Psychological Associated symptoms: Normal affect - Skin Skin Temperature: Warm Skin Moisture: Dry Course - Vital Signs Vital signs: Temp Pulse Resp BP Pulse Ox 98.1 F 101 H 20 156/94 H 95 04/29/19 18:28 04/29/19 18:28 04/29/19 18:28 04/29/19 18:28 04/29/19 18:28 - Laboratory Result Diagrams: 04/29/19 19:11 04/29/19 19:11 Laboratory results interpreted by me: 04/29/19 04/29/19 19:11 19:11 RDW 14.9 H Sodium 134.2 L Glucose 312 H - Diagnostic Test Radiology reviewed: Reports reviewed Critical Care Note - Critical Care Note Total time excluding time spent on procedures (mins): 30 Comments: I advised patient and family of the lab findings and x-ray findings . An EKG with sinus rhythm and LVH. patient reports she is to get her insulin p.m. dose as soon as she gets home. Patient was given IV Toradol Decadron morphine 2 IV and advised to recheck sugars because of the steroid given. Also follow-up with personal doctor Discharge - Discharge Clinical Impression: Chest pain, Costochondritis, acute, Hyperglycemia Condition: Good Disposition: HOME, SELF-CARE Instructions: Chest Wall Pain ([facility]) Additional Instructions: Follow-up with personal doctor in 1 to 2 days return to ER as needed for increased chest pain. Take medicines as directed encourage fluids and try to keep blood sugars on a lower level. Avoid carbonated drinks. Eat apple a day Prescriptions: Etodolac [Lodine] 400 mg PO DAILY PRN #10 tablet PRN Reason: Forms: Elevated Blood Pressure Referrals: MARA CARBAJAL MD [Primary Care Provider] - Follow up as needed
[2019-04-29 21:08] VITALS: BP 181/110
== END 2019-04-29 21:14 | disposition home or self-care (01) ==
LOC: ER 18:11
DX: M94.0 Chondrocostal junction syndrome [Tietze] (principal); E11.65 Type 2 diabetes mellitus with hyperglycemia; R07.9 Chest pain, unspecified; I11.9 Hypertensive heart disease without heart failure; I25.10 Atherosclerotic heart disease of native coronary artery without angina pectoris; J45.909 Unspecified asthma, uncomplicated; I25.2 Old myocardial infarction
CPT/HCPCS: 93005; 99285; 96374; 96375; 36415; 85025; 80053; 84484; 71046; 93010; J1885; J2270; J1100

== ENCOUNTER 2020-01-06 22:47 | Emergency (ER) | payer MEDICAID ==
--- NOTE | 2020-01-07 00:28 | ER Document Report ---
ED Medical Screen (RME) - General Chief Complaint: Breathing Difficulty Stated Complaint: DIFFICULTY BREATHING,COUGH Time Seen by Provider: 01/07/20 00:20 Primary Care Provider: MARA CARBAJAL MD [Primary Care Provider] - Follow up as needed Mode of Arrival: Wheelchair Information source: Patient Notes: Patient presents complaining of cough with chest pain that started this evening. Patient also complains of headache and some abdominal pain. Patient states she does have abdominal pain with coughing. Patient reports nausea without any vomiting or diarrhea. Patient denies any fever. Patient has a history of CT, hypertension, diabetes, CHF. I have greeted and performed a rapid initial assessment of this patient. A comprehensive ED assessment and evaluation of the patient, analysis of test results and completion of the medical decision making process will be conducted by additional ED providers. TRAVEL OUTSIDE OF THE [place] IN LAST 30 DAYS: No - Related Data Allergies/Adverse Reactions: No Known Allergies Allergy (Verified 04/29/19 18:29) Past Medical History - Past Medical History Cardiac Medical History: Reports: Hx Congestive Heart Failure, Hx Coronary Artery Disease, Hx Heart Attack, Hx Hypercholesterolemia, Hx Hypertension Pulmonary Medical History: Reports: Hx Asthma Endocrine Medical History: Reports: Hx Diabetes Mellitus Type 2 Renal/ Medical History: Denies: Hx Peritoneal Dialysis GI Medical History: Reports: Hx Gastroesophageal Reflux Disease, Hx Hiatal Hernia Musculoskeltal Medical History: Reports Hx Arthritis, Reports Hx Fibromyalgia, Reports Hx Musculoskeletal Deformity, Reports Hx Musculoskeletal Trauma Past Surgical History: Reports: Hx Cardiac Catheterization - stent x1, Hx Cardiac Surgery - Immunizations Immunizations up to date: Yes Physical Exam - Vital signs Vitals: Temp Pulse Resp BP Pulse Ox 98.0 F 112 H 20 154/130 H 98 01/06/20 22:53 01/06/20 22:53 01/06/20 22:53 01/06/20 22:53 01/06/20 22:53 - Respiratory Respiratory status: No respiratory distress Chest status: Tender Breath sounds: Nonproductive cough Chest palpation: Tender - Cardiovascular Rhythm: Tachycardia Heart sounds: S1 appreciated, S2 appreciated Course - Vital Signs Vital signs: Temp Pulse Resp BP Pulse Ox 98.0 F 105 H 20 156/101 H 98 01/06/20 22:53 01/07/20 00:21 01/06/20 22:53 01/07/20 00:21 01/06/20 22:53 Doctor's Discharge - Discharge Referrals: MARA CARBAJAL MD [Primary Care Provider] - Follow up as needed
[2020-01-07] MEDS ORDERED: IPRATROPIUM/ALBUTEROL 0.5-2.5 MG/3 ML AMPUL NEB ONE (00:35)
[2020-01-07 00:58] LABS: ABSOLUTE BASOPHILS # (AUTO) 0.1 10^3/uL (0.0-0.2); ABSOLUTE EOSINOPHILS # (AUTO) 0.1 10^3/uL (0.0-0.6); ABSOLUTE LYMPHOCYTES (AUTO) 2.5 10^3/uL (0.5-4.7); ABSOLUTE MONOCYTES (AUTO) 0.7 10^3/uL (0.1-1.4); ABSOLUTE NEUT (AUTO) 5.9 10^3/uL (1.7-8.2); EOSINOPHILS % (AUTO) 1.4 % (0-6); HEMATOCRIT 37.8 % (36.0-47.0); HEMOGLOBIN 12.5 g/dL (12.0-15.5); LYMPHOCYTES % (AUTO) 26.6 % (13-45); MEAN CORPUSCULAR HEMOGLOBIN 27.3 pg (27.0-33.4); MEAN CORPUSCULAR VOLUME 83 fl (80-97); MONOCYTES % (AUTO) 7.6 % (3-13); PLATELET COUNT 305 10^3/uL (150-450); RED BLOOD COUNT 4.57 10^6/uL (3.72-5.28); RED CELL DISTRIBUTION WIDTH 15.2 % (11.5-14.0); SEGMENTED NEUTROPHILS % (AUTO) 63.4 % (42-78); TOTAL CELLS COUNTED % (AUTO) 100 %; WHITE BLOOD COUNT 9.3 10^3/uL (4.0-10.5)
[2020-01-07 01:14] LABS: ALBUMIN 4.1 g/dL (3.5-5.0); ALKALINE PHOSPHATASE 115 U/L (38-126); ANION GAP 10 (5-19); ASPARTATE AMINO TRANSFERASE 16 U/L (14-36); BILIRUBIN,DIRECT 0.3 mg/dL (0.0-0.4); BILIRUBIN,TOTAL 0.4 mg/dL (0.2-1.3); BLOOD UREA NITROGEN 10 mg/dL (7-20); CALCIUM 8.7 mg/dL (8.4-10.2); CARBON DIOXIDE 25 mmol/L (22-30); CHLORIDE 103 mmol/L (98-107); GLUCOSE 205 mg/dL (75-110); POTASSIUM 3.8 mmol/L (3.6-5.0); TOTAL PROTEIN 7.3 g/dL (6.3-8.2)
[2020-01-07 01:22] LABS: APPEARANCE,URINE CLEAR; BILIRUBIN,URINE NEGATIVE (NEGATIVE); COLOR,URINE YELLOW; GLUCOSE, URINE 150 mg/dL (NEGATIVE); KETONES,URINE NEGATIVE (NEGATIVE); LEUKOCYTE ESTERASE,URINE NEGATIVE (NEGATIVE); NITRITE,URINE NEGATIVE (NEGATIVE); PROTEIN,URINE 100 mg/dL (NEGATIVE); URINE SPECIFIC GRAVITY 1.025
[2020-01-07 01:25] LABS: NT PRO BNP 116 pg/mL (<125); TROPONIN I < 0.012 ng/mL
--- NOTE | 2020-01-07 01:37 | RADIOLOGY REPORT (SQ) ---
EXAM DESCRIPTION: [facility]: XR CHEST 2 VIEWS Views: 2 CLINICAL HISTORY: 54 years Female; cp, cough; COMPARISON: Report from 04/29/2019 was reviewed. However, the images are not available for direct comparison. FINDINGS: Lungs: Lungs are clear, with no focal infiltrate, pneumothorax, or pleural effusion. Mediastinum: Mediastinum is within normal limits for this positioning. Bones: Bony structures are unremarkable. IMPRESSION: 1. No acute cardiothoracic abnormality.
--- NOTE | 2020-01-07 02:15 | EKG REPORT ---
SEVERITY:- ABNORMAL ECG - SINUS RHYTHM LEFT VENTRICULAR HYPERTROPHY ANTERIOR Q WAVES, POSSIBLY DUE TO LVH BORDERLINE PROLONGED QT INTERVAL : Confirmed by: Niya William MD 07-Jan-2020 02:14:16
[2020-01-07] MEDS ORDERED: ALBUTEROL SULFATE 0.083% NEB 2.5 MG/3 ML AMPUL NEB ONE (05:01)
[2020-01-07] MEDS ORDERED: PREDNISONE 20 MG TABLET PO ONE (05:01)
[2020-01-07] MEDS ORDERED: BUTALB/ACETAMINOPHEN/CAFFEINE 1 TAB EACH PO ONE (05:01)
[2020-01-07] MEDS ORDERED: PROMETHAZINE HCL 25 MG TABLET PO ONE (05:06)
--- NOTE | 2020-01-07 05:08 | ER Document Report ---
ED Respiratory Problem - General Chief Complaint: Breathing Difficulty Stated Complaint: DIFFICULTY BREATHING,COUGH Time Seen by Provider: 01/07/20 00:20 Primary Care Provider: MARA CARBAJAL MD [Primary Care Provider] - Follow up as needed Mode of Arrival: Wheelchair Information source: Patient Notes: Patient presents complaining of cough with chest pain that started around 9 PM this evening. Patient states that around that time she developed headache and a bdominal pain. Patient states she has had nausea without any vomiting or diarrhea. Patient denies any fever or urinary symptoms. TRAVEL OUTSIDE OF THE [place] IN LAST 30 DAYS: No - HPI Patient complains to provider of: Asthma, Chest pain, Cough Onset: This evening Duration: Continuous Quality of pain: Achy Pain Level: 5 Context: Hx asthma. denies: Recent immobilization, Smoker Chest pain/discomfort: Pain Cough: Nonproductive At home treatment: denies: Bronchodilators Associated symptoms: Chest pain/discomfort, Cough, Headache, Wheezing. denies: Fever, Sore Throat Similar symptoms previously: Yes Recently seen / treated by doctor: No - Related Data Allergies/Adverse Reactions: No Known Allergies Allergy (Verified 04/29/19 18:29) Past Medical History - General Information source: Patient - Social History Smoking Status: Never Smoker Frequency of alcohol use: None Drug Abuse: None Occupation: none Lives with: Family Family History: Reviewed & Not Pertinent, Hypertension - Negative for premature coronary artery disease or sudden cardiac in the family amongst first degree relatives. - Past Medical History Cardiac Medical History: Reports: Hx Congestive Heart Failure, Hx Coronary Artery Disease, Hx Heart Attack, Hx Hypercholesterolemia, Hx Hypertension Pulmonary Medical History: Reports: Hx Asthma Endocrine Medical History: Reports: Hx Diabetes Mellitus Type 2 Renal/ Medical History: Denies: Hx Peritoneal Dialysis GI Medical History: Reports: Hx Gastroesophageal Reflux Disease, Hx Hiatal Hernia Musculoskeletal Medical History: Reports Hx Arthritis, Reports Hx Fibromyalgia, Reports Hx Musculoskeletal Deformity, Reports Hx Musculoskeletal Trauma Past Surgical History: Reports: Hx Cardiac Catheterization - stent x1, Hx Cardiac Surgery - Immunizations Immunizations up to date: Yes Review of Systems - Review of Systems Constitutional: No symptoms reported. denies: Fever EENT: No symptoms reported. denies: Throat pain Cardiovascular: Chest pain. denies: Dizziness Respiratory: Cough, Wheezing Gastrointestinal: Abdominal pain, Nausea. denies: Diarrhea, Vomiting Genitourinary: No symptoms reported. denies: Dysuria Female Genitourinary: No symptoms reported Musculoskeletal: No symptoms reported Skin: No symptoms reported Hematologic/Lymphatic: No symptoms reported Neurological/Psychological: Headaches. denies: Confusion, Weakness Physical Exam - Vital signs Vitals: Temp Pulse Resp BP Pulse Ox 98.0 F 112 H 20 154/130 H 98 01/06/20 22:53 01/06/20 22:53 01/06/20 22:53 01/06/20 22:53 01/06/20 22:53 - General General appearance: Appears well, Alert In distress: None - HEENT Head: Normocephalic, Atraumatic Eyes: Normal Conjunctiva: Normal Nasal: Normal Mouth/Lips: Normal Mucous membranes: Normal Neck: Normal, Supple. No: Lymphadenopathy - Respiratory Respiratory status: No respiratory distress Chest status: Pain on movement, Pain with cough Breath sounds: Nonproductive cough, Wheezing Chest palpation: Tender - Cardiovascular Rhythm: Regular Heart sounds: S1 appreciated, S2 appreciated Murmur: No - Abdominal Inspection: Obese Distension: No distension Bowel sounds: Normal Tenderness: Nontender Organomegaly: No organomegaly - Back Back: Normal, Nontender. No: CVA tenderness - Extremities General upper extremity: Normal inspection, Nontender, Normal strength General lower extremity: Normal inspection, Nontender, Normal strength - Neurological Neuro grossly intact: Yes Cognition: Normal Jere Coma Scale Eye Opening: Spontaneous Jere Coma Scale Verbal: Oriented [place] Coma Scale Motor: Obeys Commands [place] Coma Scale Total: 15 - Psychological Associated symptoms: Normal affect, Normal mood - Skin Skin Temperature: Warm Skin Moisture: Dry Skin Color: Normal Course - Re-evaluation Re-evalutation: 01/07/20 05:05 Patient reports that abdominal pain has since resolved although her headache cough and chest pain continued. Patient with reproducible anterior chest wall tenderness with palpation and coughing. Patient with wheezing with cough. Patient states that she does not have any medications for her asthma at home. 01/07/20 06:07 Patient's wheezing resolved at this time. Patient still continues with reproducible chest pain with palpation. Patient states that this may be her fibromyalgia. Presentation of chest pain in an otherwise well appearing patient. Low clinical suspicion for ACS given clinical history, exam, EKG without ST elevations or depressions, and negative initial and delta troponin. HEART score less than or equal to 3. PE also seems unlikely given clinical history and results of d-dimer. CXR without evidence of pneumothorax or pneumonia. No widened mediastinum. Chest pain in a patient without evidence of cardiac or other serious etiology on workup today. I discussed with patient that, based on their age, risk factors and emergency department testing today, the likelihood that their symptoms are related to a heart attack is very low. The patient demonstrates decision making capacity and has verbalized an understanding of these risks to me. Based on this, the patient has chosen to follow-up as an outpatient. Usual chest pain return precautions reviewed. The patient states understanding and agreement with this plan. 01/07/20 06:09 - Vital Signs Vital signs: Temp Pulse Resp BP Pulse Ox 98.1 F 95 20 165/91 H 100 01/07/20 06:30 01/07/20 06:30 01/07/20 06:30 01/07/20 06:30 01/07/20 06:30 - Laboratory Result Diagrams: 01/07/20 00:50 01/07/20 00:50 Laboratory results interpreted by me: 01/07/20 01/07/20 01/07/20 00:50 00:50 00:57 RDW 15.2 H Glucose 205 H Urine Protein 100 H Urine Glucose (UA) 150 H Urine Urobilinogen 2.0 H 01/07/20 06:07 Labs- All tests 24 hr 01/07/20 01/07/20 01/07/20 00:50 00:50 00:50 WBC 9.3 RBC 4.57 Hgb 12.5 Hct 37.8 MCV 83 MCH 27.3 MCHC 33.0 RDW 15.2 H Plt Count 305 Lymph % (Auto) 26.6 [place] % (Auto) 7.6 Eos % (Auto) 1.4 Baso % (Auto) 1.0 Absolute Neuts (auto) 5.9 Absolute Lymphs (auto) 2.5 Absolute Monos (auto) 0.7 Absolute Eos (auto) 0.1 Absolute Basos (auto) 0.1 Seg Neutrophils % 63.4 D-Dimer Sodium 137.6 Potassium 3.8 Chloride 103 Carbon Dioxide 25 Anion Gap 10 BUN 10 Creatinine 0.69 Est GFR ( Amer) > 60 Est GFR (MDRD) Non-Af > 60 Glucose 205 H Calcium 8.7 Total Bilirubin 0.4 Direct Bilirubin 0.3 Neonat Total Bilirubin Not Reportable Neonat Direct Bilirubin Not Reportable Neonat Indirect Bili Not Reportable AST 16 ALT 14 Alkaline Phosphatase 115 Troponin I < 0.012 NT-Pro-B Natriuret Pep 116 Total Protein 7.3 Albumin 4.1 Lipase 176.1 Urine Color Urine Appearance Urine pH Ur Specific [place] Urine Protein Urine Glucose (UA) Urine Ketones Urine Blood Urine Nitrite Urine Bilirubin Urine Urobilinogen Ur Leukocyte Esterase Urine WBC (Auto) Urine RBC (Auto) Squamous Epi Cells Auto Urine Mucus (Auto) Urine Ascorbic Acid 01/07/20 01/07/20 01/07/20 00:57 04:22 04:35 WBC RBC Hgb Hct MCV MCH MCHC RDW Plt Count Lymph % (Auto) [place] % (Auto) Eos % (Auto) Baso % (Auto) Absolute Neuts (auto) Absolute Lymphs (auto) Absolute Monos (auto) Absolute Eos (auto) Absolute Basos (auto) Seg Neutrophils % D-Dimer 0.36 Sodium Potassium Chloride Carbon Dioxide Anion Gap BUN Creatinine Est GFR ( Amer) Est GFR (MDRD) Non-Af Glucose Calcium Total Bilirubin Direct Bilirubin Neonat Total Bilirubin Neonat Direct Bilirubin Neonat Indirect Bili AST ALT Alkaline Phosphatase Troponin I < 0.012 NT-Pro-B Natriuret Pep Total Protein Albumin Lipase Urine Color YELLOW Urine Appearance CLEAR Urine pH 6.0 Ur Specific [place] 1.025 Urine Protein 100 H Urine Glucose (UA) 150 H Urine Ketones NEGATIVE Urine Blood NEGATIVE Urine Nitrite NEGATIVE Urine Bilirubin NEGATIVE Urine Urobilinogen 2.0 H Ur Leukocyte Esterase NEGATIVE Urine WBC (Auto) 1 Urine RBC (Auto) 1 Squamous Epi Cells Auto 5 Urine Mucus (Auto) FEW Urine Ascorbic Acid NEGATIVE - Diagnostic Test Radiology reviewed: Image reviewed, Reports reviewed - EKG Interpretation by Ms EKG shows normal: Sinus rhythm When compared to previous EKG there are: No significant change Additional EKG results interpreted by me: 01/07/20 06:10 Sinus rhythm with a rate of 99, QTc 498, patient with borderline prolonged elongation of QT interval, no significant change when compared to prior EKG Discharge - Discharge Clinical Impression: Chest wall pain Asthma exacerbation Qualifiers: Asthma severity: unspecified severity Asthma persistence: unspecified Qualified Code(s): J45.901 - Unspecified asthma with (acute) exacerbation Headache Qualifiers: Headache type: unspecified Headache chronicity pattern: unspecified pattern Intractability: not intractable Qualified Code(s): R51 - Headache Condition: Stable Disposition: HOME, SELF-CARE Instructions: Asthma ([facility]), Chest Wall Pain ([facility]), Headache ([facility]), Inhaled Bronchodilators ([facility]), Steroid Medication Additional Instructions: Return immediately for any new or worsening symptoms Followup with your primary care provider, call tomorrow to make a followup appointment You were seen today for chest pain. The exact cause of your pain is unclear. However, based on your cardiac enzyme testing, chest x-ray, and EKG it does not appear that it is from an immediately life-threatening cause at this time. Although your testing here is normal is critical that you follow-up with your primary care physician for continued evaluation of this chest pain and possible stress testing. I recommended you see your physician within the next 24-48 hours to be evaluated for consideration of a stress test. Please return to emergency department immediately if you have worsening of your chest pain, shortness of breath, vomiting, become unable to exert yourself due to pain or difficulty breathing, you pass out, or have any pain that radiates into your arms, jaw, or back. Please also return if you have any additional symptoms that are concerning to you. Prescriptions: Prednisone [Deltasone 20 mg Tablet] 3 tab PO DAILY 4 Days #12 tablet Butalb/Acetaminophen/Caffeine [Fioricet (50-325-40 mg) Tablet] 1 - 2 tab PO Q4H #20 each Inhaler,Assist Device,Accesory [Optichamber] 1 each MC Q4 PRN #1 each PRN Reason: Promethazine HCl [Phenergan 25 mg Tablet] 25 mg PO Q6H PRN #8 tablet PRN Reason: Albuterol Sulfate [Proair Hfa Inhalation Aerosol 8.5 gm Mdi] 2 puff IH Q4 PRN #1 mdi PRN Reason: Forms: Parent Work Note Referrals: MARA CARBAJAL MD [Primary Care Provider] - Follow up as needed
[2020-01-07 06:32] VITALS: BP 165/91
== END 2020-01-07 06:30 | disposition home or self-care (01) ==
LOC: ER 22:47
DX: J45.901 Unspecified asthma with (acute) exacerbation (principal); R51 Headache; R06.00 Dyspnea, unspecified; R07.89 Other chest pain; I50.9 Heart failure, unspecified; I25.10 Atherosclerotic heart disease of native coronary artery without angina pectoris; E78.00 Pure hypercholesterolemia, unspecified; I11.0 Hypertensive heart disease with heart failure; E11.9 Type 2 diabetes mellitus without complications; I25.2 Old myocardial infarction
CPT/HCPCS: 93005; 94640 ×2; 99285; 36415; 83690; 85025; 80053; 81001; 84484; 85379; 83880; 71046; 93010; J3490 ×2; J7512; J7613